=== PATIENT | male | born 1935 | race Hispanic/Latino ===

== ENCOUNTER 2017-05-04 10:38 | Inpatient (IN) | payer MEDICARE ==
--- NOTE | 2017-05-04 10:50 | C.PDOC ---
History Of Present Illness Patient BIBA for sudden onset of left sided weakness, left facial droop since approx 40 min prior to arrival. Patient apparently drove himself to supermarket , and became confused at store and EMS was called. PMhx of CAD, A fib, CHF, bladder CA, HTN, GERD. Time Seen by Provider: 05/04/17 10:42 Chief Complaint (Nursing): Weakness/Neurological Deficit History Per: Patient, EMS History/Exam Limitations: other (slurred speech) Onset/Duration Of Symptoms: Mins (approx 40 min) Current Symptoms Are (Timing): Still Present Past Medical History Reviewed: Historical Data, Nursing Documentation, Vital Signs Vital Signs: Last Vital Signs Temp 97.6 F 05/07/17 15:51 Pulse 77 05/07/17 15:51 Resp 20 05/07/17 15:51 BP 151/89 H 05/07/17 15:51 Pulse Ox 97 05/07/17 15:51 - Medical History PMH: Atrial Fibrillation, CAD, Cardia Arrhythmia, CHF, GERD, HTN, Malignancy ( Bladder) - [facility] Procedures CONTROL POSTOP PROST HEM (02/24/14) CYSTOSCOPY NEC (12/10/14) INJECT/INFUSE NEC (06/18/12) INJECT/INFUSE THROMBOLYTIC AGENT (09/27/03) NEBULIZER THERAPY (06/21/13) PARTIAL URETERECTOMY (06/10/12) RETROGRADE PYELOGRAM (02/24/14) TRANSURETH BLADD BIOPSY (02/24/14) TU BLADDER CLEARANCE (02/24/14) TU DESTRUC BLADD LES NEC (12/10/14) URETERAL CATHETERIZATION (06/10/12) Family History: States: No Known Family Hx - Social History Hx Tobacco Use: No Hx Alcohol Use: Yes Hx Substance Use: No - Immunization History Hx Tetanus Toxoid Vaccination: No Hx Influenza Vaccination: No Hx Pneumococcal Vaccination: No Review Of Systems Except As Marked, All Systems Reviewed And Found Negative. Constitutional: Negative for: Fever Cardiovascular: Negative for: Chest Pain, Palpitations Respiratory: Negative for: Shortness of Breath Gastrointestinal: Negative for: Abdominal Pain Neurological: Positive for: Weakness (left sided weakness), Confusion, Altered Mental Status. Negative for: Seizures Physical Exam - Physical Exam Appears: Non-toxic, No Acute Distress Skin: Warm, Dry Head: Atraumatic, Normacephalic Eye(s): bilateral: Normal Inspection, PERRL, EOMI Oral Mucosa: Moist Cardiovascular: Rhythm Regular Respiratory: Normal Breath Sounds, No Rales, No Rhonchi, No Wheezing Gastrointestinal/Abdominal: Normal Exam, Bowel Sounds, Soft, No Tenderness Extremity: Bilateral: Atraumatic Neurological/Psych: Oriented x3, No Normal Speech (slurred speech), Normal Cognition, No Normal Cranial Nerves (left facial droop), No Normal Motor (0/5 motor strength LUE, 1/5 mtor strength LLE, 5/5 motor strength RUE/RLE), No Normal Sensation (decreased sensation LUE/LLE), No Expressive Aphasia, No Receptive Aphasia, Dysarthria ED Course And Treatment - Laboratory Results Result Diagrams: 05/07/17 10:13 05/07/17 10:13 ECG: Interpreted By Me, Viewed By Me (atrial fibrillation 100bpm, left axis deviation, no acute ST/T wave changes - patient has known h/o a fib) ECG Interpretation: Abnormal O2 Sat by Pulse Oximetry: 99 (ra) Pulse Ox Interpretation: Normal - CT Scan/US ct head Other Rad Studies (CT/US): Read By Radiologist, Radiology Report Reviewed CT/US Interpretation: Accession No. : [id number]. Patient Name / ID : ALVERTO VIGIL / [id number]. Exam Date : 05/04/2017 11:09:03 ( Approved ) . Study Comment : Sex / Age : M / 82Y. Creator : Gabriel Yun MD. Dictator : Gabriel Yun MD. Packing House Laborer : Lap Hand Tool : Gabriel Yun MD. Approver2 : Report Date : 05/04/2017 12:30:18. My Comment : . PROCEDURE: CT HEAD WITHOUT CONTRAST. HISTORY: Code Stroke. Left-sided facial droop and left lower extremity weakness. COMPARISON: None available. TECHNIQUE: Axial computed tomography images were obtained through the head/ brain without intravenous contrast. Radiation dose: Total exam DLP = 1099.32 mGy-cm. This CT exam was performed using one or more of the following dose reduction techniques: Automated exposure control, adjustment of the mA and/or kV according to patient size, and/or use of iterative reconstruction technique. FINDINGS: HEMORRHAGE: No intracranial hemorrhage. BRAIN: There is no definite cortical edema appreciated in this examination although motion artifacts degrade the quality examination significantly, despite performing multiple series to attempt to overcome this problem. There is no mass effect. Expanded ventricular sulcal and cisternal spaces are appreciated and there is periventricular white matter lucency with subtle lucency also occasionally affecting subcortical white matter throughout the bilateral cerebral hemispheres. Both patterns are compatible with diffuse cerebral atrophy chronic microangiopathy respectively. A chronic lacune is seen at the left external capsule No suspicious extra-axial fluid collection identified in the midline brain and appears within normal limits grossly. Posterior fossa contents reflect limited chronic microangiopathy in the grace and otherwise unremarkable. VENTRICLES: Unremarkable. No hydrocephalus. CALVARIUM: Unremarkable. PARANASAL SINUSES: Limited left ethmoid sinusitis. MASTOID AIR CELLS: Unremarkable as visualized. No inflammatory changes. OTHER FINDINGS: None. IMPRESSION: Age-related neuro degenerative changes are identified without definite mass effect, cortical edema or intracranial hemorrhage at this time. A chronic lacune is seen the left external capsule. Study is somewhat limited by motion artifacts. Follow-up CT or MRI are advised given clinical history suspicious for brain infarction. Findings were discussed at CT with Dr. Contreras 05/04/2017 11:19 a.m.. Progress Note: Code stroke called on patient's arrival. Discussed patient with Dr. Pennington - he requests CTA of head in addition to CT head. Patient agitated upstairs in CT, went upstairs to eval - states has claustrophobia, also coughing , spitting up mucus, but AAOx3 with normal vitals. 2mg ativan IVP + 500ml NS bolus given. Able to get CT head done. 10:55am - As per technical rep, Dr. Bullard states cannot do CT angio at this time without blood work. 11:49AM- Discussed patient with Dr. Pennington, in agreement with tPA administration - pushed at 11: 49am. Prior to admin, patient and brother at bedside in agreement and signed consent. Patient's pharmacy [facility] called, they state patient only on Digoxin at this time. Will get CT angio head, if (+) for clot - should transer to interventional. 12:05pm- Patient now able to LLE 3/5 motor strenth, LUE still 1/5 motor strength, slurred speech clearer now, left facial droop still present. Pending CTA head for admission to ICU vs transfer to interventional neuro. 2:05PM- CTA head (-). Will admit patient to medicine. Spoke with PMD Dr. Casper, he has not seen patient in several years. Previously had hematuria due to bladder CA and was taken off of blood thinnners due to that. Will admit to medicine. 2:40PM- Discussed patient with digital advertising specialist Dr. raymond, agrees with ICU admission for acute CVA s/p tPA. - Physician Consult Information Physician Contacted: Velia Killian Outcome Of Conversation: Discussed patient with Dr. Dionne Killian, agrees with admission to his service for acute CVA, left sided hemiparesis s/p tPA. Critical Care Time - Critical Care Note Total Time (in mins): 50 Documented critical care: time excludes all time spent performing seperately billable procedures. NIHSS Stroke Scale - Date/Time Evaluation Performed Date Performed: 05/04/17 Time Performed: 10:40 When Was NIHSS Performed: Baseline - How Severe is the Stoke Level of Consciousness: 0=Alert LOC to Questions: 0=Both comments correct LOC to commands: 0=Obeys both correctly Best Gaze: 0=Normal Visual: 0=No visual loss Facial: 3=Complete unilateral paralysis Motor Arm - Left: 3=No effort against gravity (falls immediately) Motor Arm - Right: 0=No drift Motor Leg - Left: 2=Falls before 5 sec Motor Leg - Right: 0=No drift Limb Ataxia: 0=Absent Sensory: 1=Mild to moderate loss (left) Best Language: 0=No aphasia Dysarthia: 1=Mild to moderate slurring Extinction & Inattention (Neglect): 0=Normal, no object Score: 10 Severity Of Stroke: 5-15= Moderate Stroke rTPA Inclusion/Exclusion - Refusal of Treatment Patient Refused Treatment: No - Inclusion Criteria for Altepase Patient is 18 years or Older: Yes The Clinical Diagnosis of Ischemic Stroke That is Causing a Potentially Disabling Neurological Deficit: Yes Time of Onset is Well Established to be Less Than 270 Minute Before Treatment Would Begin: Yes Risk/Benefit Discussed With Patient/Family Member Present: Yes - Exclusion Criteria for Altepase Uncontrolled Hypertension at Time of Treatment (Systolic BP above 185 or Diastolic BP above 110 mmHg): No Active Internal Bleeding: No Known Bleeding Diathesis Including but Not Limited to: Platelets Below 100,000/ mm,PTT Above 40 sec After Heparin Use, Current Use of Oral Anitcoagulant With INR Greater Than 1.7 or PT Greater Than 15 secs: No Evidence of an Intracranial Hemorrhage: No Evidence of Major Acute Infarct With Signs Greater Than 1/3 MCA Territory: No Suspicion of Subarachnoid Hemorrhage on Pretreatment Evaluation Even if CT Head Negative For Hemorrhage: No - Warning to TPA With Conditions Following Conditions Weighed Against Anticipated Benefit: Yes Condition: Age Greater Than 75 years Additional Condition (For 3-4.5 Hour Window): Age Greater Than 80, Prior Stroke and Diabetes Disposition - Disposition Disposition: HOSPITALIZED Disposition Time: 14:21 Condition: GUARDED - Clinical Impression Clinical Impression: Acute CVA (cerebrovascular accident) Decision To Admit - Pt Status Changed To: Hospital Disposition Of: Inpatient - Admit Certification Admit to Inpatient:: After my assessment, the patient will require hospitalization for at least two midnights. This is because of the severity of symptoms shown, intensity of services needed, and/or the medical risk in this patient being treated as an outpatient. - InPatient: Physician Admission Certification: I certify that this patient requires 2 or more midnights of care for the following reason:: see notes - . Bed Request Type: ICU Admitting Physician: Velia Killian Patient Diagnosis: Acute CVA (cerebrovascular accident)
[2017-05-04 10:57] LABS: BASO % 0.3 % (0.0-2.0); EOS # 0.1 K/uL (0.0-0.7); EOS % 2.2 % (0.0-4.0); HEMATOCRIT 41.8 % (35.0-51.0); LYMPH # 1.2 K/uL (1.0-4.3); MEAN CELL VOLUME 81.6 fL (80.0-94.0); MEAN CORPUSCULAR HEMOGLOBIN 27.9 pg (27.0-31.0); MEAN CORPUSCULAR HGB CONC 34.2 g/dL (33.0-37.0); MEAN PLATELET VOLUME 7.8 fL (7.2-11.7); MONO # 0.7 K/uL (0.0-0.8); MONO % 11.6 % (0.0-10.0); NRBC % 0.1 % (0.0-2.0); RED CELL DISTRIBUTION WIDTH 15.7 % (11.5-14.5); WHITE BLOOD COUNT 6.2 K/uL (4.8-10.8)
[2017-05-04 11:05] LABS: INR 1.3
[2017-05-04] MEDS ORDERED: Iodixanol 320 MG/ML 100 ML BOTTLE IV ONE ×2 (11:09→13:02)
[2017-05-04 11:12] LABS: CHLORIDE 98 mmol/L (98-107); POTASSIUM 4.3 mmol/L (3.6-5.2); SODIUM 135 mmol/L (132-148)
[2017-05-04 11:14] LABS: BILIRUBIN,TOTAL 1.3 mg/dL (0.2-1.3); CARBON DIOXIDE 27 mmol/L (22-30); CHOLESTEROL 123 mg/dL (0-199); GFR AFRICAN-AMERICAN > 60
[2017-05-04 11:15] LABS: ALKALINE PHOSPHATASE 58 U/L (38-126); ALT/SGPT 18 U/L (21-72); AST/SGOT 25 U/L (17-59); BLOOD UREA NITROGEN 15 mg/dL (9-20); CALCIUM 8.9 mg/dl (8.6-10.4); GLUCOSE,RANDOM 115 mg/dL (75-110)
[2017-05-04] MEDS ORDERED: Sodium Chloride 0.9% 500 ML IV ONE ×2 (12:15→13:01)
--- NOTE | 2017-05-04 12:31 | CT ---
PROCEDURE: CT HEAD WITHOUT CONTRAST. HISTORY: Code Stroke. Left-sided facial droop and left lower extremity weakness. COMPARISON: None available. TECHNIQUE: Axial computed tomography images were obtained through the head/brain without intravenous contrast. Radiation dose: Total exam DLP = 1099.32 mGy-cm. This CT exam was performed using one or more of the following dose reduction techniques: Automated exposure control, adjustment of the mA and/or kV according to patient size, and/or use of iterative reconstruction technique. FINDINGS: HEMORRHAGE: No intracranial hemorrhage. BRAIN: There is no definite cortical edema appreciated in this examination although motion artifacts degrade the quality examination significantly, despite performing multiple series to attempt to overcome this problem. There is no mass effect. Expanded ventricular sulcal and cisternal spaces are appreciated and there is periventricular white matter lucency with subtle lucency also occasionally affecting subcortical white matter throughout the bilateral cerebral hemispheres. Both patterns are compatible with diffuse cerebral atrophy chronic microangiopathy respectively. A chronic lacune is seen at the left external capsule No suspicious extra-axial fluid collection identified in the midline brain and appears within normal limits grossly. Posterior fossa contents reflect limited chronic microangiopathy in the grace and otherwise unremarkable. VENTRICLES: Unremarkable. No hydrocephalus. CALVARIUM: Unremarkable. PARANASAL SINUSES: Limited left ethmoid sinusitis. MASTOID AIR CELLS: Unremarkable as visualized. No inflammatory changes. OTHER FINDINGS: None. IMPRESSION: Age-related neuro degenerative changes are identified without definite mass effect, cortical edema or intracranial hemorrhage at this time. A chronic lacune is seen the left external capsule. Study is somewhat limited by motion artifacts. Follow-up CT or MRI are advised given clinical history suspicious for brain infarction. Findings were discussed at CT with Dr. Contreras 05/04/2017 11:19 a.m..
--- NOTE | 2017-05-04 12:46 | RAD ---
HISTORY: STOKE COMPARISON: 05/27/2015 FINDINGS: LUNGS: No consolidation. Central pulmonary venous congestion suggested slightly increased since the prior exam PLEURA: No significant pleural effusion identified, no pneumothorax apparent. CARDIOVASCULAR: Cardiomegaly and mild central pulmonary venous congestion -the latter slightly increased. OSSEOUS STRUCTURES: No significant abnormalities. VISUALIZED UPPER ABDOMEN: Normal. OTHER FINDINGS: The previously referenced two linear objects projecting of the left lateral hemithorax are no longer seen. These likely related to the paired presybeterian parts of eyeglasses from hinge to earlobe curse segments IMPRESSION: Cardiomegaly. Mild pulmonary venous congestion - slightly increased since the prior exam. Mild CHF inferred
[2017-05-04 13:38] VITALS: BMI 36.6
--- NOTE | 2017-05-04 13:59 | CT ---
PROCEDURE: CT Angiography of the Brain. HISTORY: CVA, LEFT FACIAL FACIAL DROOP COMPARISON: None available. TECHNIQUE: CT angiography of the intracranial arteries was performed. Coronal and sagittal maximum intensity projection reformated images were generated. Contrast dose: Visipaque 320, 100 cc Radiation dose: 564.97 mGy-cm. This CT exam was performed using one or more of the following dose reduction techniques: Automated exposure control, adjustment of the mA and/or kV according to patient size, and/or use of iterative reconstruction technique. FINDINGS: INTERNAL CEREBRAL ARTERIES: The skull base, petrous, cavernous and supraclinoid segments are bilaterally widely patent. ANTERIOR CEREBRAL ARTERIES: Unremarkable. A1 and A2 segments are widely patent. Smaller distal branches unremarkable, as visualized. MIDDLE CEREBRAL ARTERIES: Unremarkable. M1 and M2 segments are widely patent. Perisylvian branches grossly symmetric. POSTERIOR CIRCULATION: Basilar Artery: Unremarkable. Distal Vertebral Arteries: Unremarkable. Posterior Cerebral Arteries: Unremarkable. Posterior Inferior Cerebellar Arteries: Unremarkable. CERVICAL CTA RESULTS: Common carotid arteries: The bilateral common carotid appear widely patent from their origins to their bifurcations with no significant stenosis appreciated although minimal atherosclerotic plaque at the bilateral carotid bulb regions symmetrically. No evidence to suggest common carotid artery dissection. Internal carotid arteries: No significant stenosis is appreciated throughout the cervical internal carotid artery segments bilaterally and there is no evidence of dissection either. Vertebral arteries: The bilateral vertebral artery normal in caliber from their origins to their union with the basilar artery. Vertebrobasilar system appears left dominant. No significant stenosis or definite pattern of dissection. Incidentally, the bilateral subclavian arteries are widely patent as well as the brachiocephalic artery. ANEURYSM/ VASCULAR MALFORMATIONS: None. OTHER FINDINGS: None. IMPRESSION: Unremarkable CT Angiography of the Brain and Neck.
--- NOTE | 2017-05-04 18:26 | CP.PCM.HP ---
<Stephanie Way - Last Filed: 05/04/17 18:13> History of Present Illness - History of Present Illness History of Present Illness: ICU HPI: Patient is a 82 year old male with past medical history of bladder cancer, A. fibrillation, CVA (2003), HTN, GERD, CHF and CAD, who presents to the ED via ambulance after he was found to be confused, slurred speech and left facial droop at the supermarket while shopping. As per EMS, patient drove himself to the supermarket. During encounter, patient seems very lethargic s/p ativan for agitation. Patient admits to a mild frontal headache and dizziness but denies chest pain, palpitations, SOB, nausea and vomiting. Unable to evaluate adequate ROS as patient was very lethargic and drowsy. PMHx: bladder cancer, A. fibrillation, CVA (2004), HTN, GERD, CHF and CAD PSHx: Back surgery ( as per patient), Partila uretertectomy, TURB ( per chart review) FHx: Unknown Allergies: NKDA Medications: refer to chart Social Hx: Lives alones, admits to 40 years of tobacco use and denies ETOH and illicit drug use Present on Admission - Present on Admission Any Indicators Present on Admission: No Review of Systems - Constitutional Constitutional: Headache, Weakness. absent: Chills, Fever - EENT Eyes: absent: Change in Vision Ears: Dizziness - Cardiovascular Cardiovascular: Lightheadedness. absent: Chest Pain, Dyspnea, Palpitations - Respiratory Respiratory: absent: Dyspnea - Gastrointestinal Gastrointestinal: absent: Abdominal Pain, Nausea, Vomiting - Musculoskeletal Musculoskeletal: Muscle Weakness - Neurological Neurological: Confusion, Dizziness, Focal Weakness, Headaches, Weakness. absent : Loss of Vision - Psychiatric Psychiatric: Confusion - Endocrine Endocrine: absent: Fatigue, Palpitations Past Patient History - Infectious Disease Hx of Infectious Diseases: None - Tetanus Immunizations Tetanus Immunization: Unknown - Past Medical History & Family History Past Medical History?: Yes - Past Social History Smoking Status: Never Smoked - CARDIAC Hx Atrial Fibrillation: Yes Hx Cardia Arrhythmia: Yes Hx Congestive Heart Failure: Yes Hx Hypertension: Yes - NEUROLOGICAL Hx Neurological Disorder: Yes HX Cerebrovascular Accident: Yes - HEENT Hx HEENT Problems: Yes Hx Cataracts: Yes (RACHEAL) - HEMATOLOGICAL/ONCOLOGICAL Hx Cancer: Yes (treated prostate/bladder) - INTEGUMENTARY Other/Comment: skin in both lower ext hyperpigmented - MUSCULOSKELETAL/RHEUMATOLOGICAL Hx Musculoskeletal Disorders: Yes Hx Unsteady Gait: Yes (cane) Other/Comment: hx of "frozen shoulder" - GASTROINTESTINAL Hx Gastrointestinal Disorders: Yes Hx Gastroesophageal Reflux: Yes - GENITOURINARY/GYNECOLOGICAL Hx Genitourinary Disorders: Yes (bladder tumor removed 2010) Hx Prostate Problems: Yes - PSYCHIATRIC Hx Substance Use: No - SURGICAL HISTORY Hx Surgeries: Yes Other/Comment: pilonidal cyst removed - ANESTHESIA Hx Anesthesia: Yes Hx Anesthesia Reactions: No Meds Allergies/Adverse Reactions: Allergies Allergy/AdvReac Type Severity Reaction Status Date / Time No Known Allergies Allergy Verified 05/04/17 10:40 Physical Exam - Head Exam Head Exam: NORMOCEPHALIC - Eye Exam Eye Exam: EOMI - Respiratory Exam Respiratory Exam: NORMAL BREATHING PATTERN - Cardiovascular Exam Cardiovascular Exam: REGULAR RHYTHM, +S1, +S2 - GI/Abdominal Exam GI & Abdominal Exam: Normal Bowel Sounds, Soft. absent: Tenderness - Extremities Exam Extremities exam: Positive for: normal inspection. Negative for: pedal edema - Neurological Exam Neurological exam: Alert, Altered Additional comments: Unable to appreciate adequate neurological exam as patient is very lethargic and drowsy. Observation of slurred speech, confusion Patient was examined s/p TPA: noted to have 3/5 strenght on the left LE and 4/5 UE. LLE weaker than RLE - Skin Skin Exam: Normal Color Results - Vital Signs Recent Vital Signs: Last Vital Signs Temp 97.4 F L 05/04/17 17:25 Pulse 91 H 05/04/17 17:45 Resp 20 05/04/17 17:25 BP 154/95 H 05/04/17 17:45 Pulse Ox 97 05/04/17 17:45 - Labs Result Diagrams: 05/04/17 10:51 05/04/17 10:51 Labs: Laboratory Results - last 24 hr 05/04/17 05/04/17 05/04/17 10:51 10:51 10:51 WBC 6.2 RBC 5.12 Hgb 14.3 Hct 41.8 MCV 81.6 MCH 27.9 MCHC 34.2 RDW 15.7 H Plt Count 177 MPV 7.8 Neut % (Auto) 66.9 Lymph % (Auto) 19.0 L [place] % (Auto) 11.6 H Eos % (Auto) 2.2 Baso % (Auto) 0.3 Neut # 4.2 Lymph # 1.2 [place] # 0.7 Eos # 0.1 Baso # 0.0 PT 14.7 H INR 1.3 APTT 32 Sodium 135 Potassium 4.3 Chloride 98 Carbon Dioxide 27 Anion Gap 14 BUN 15 Creatinine 1.0 Est GFR ( Amer) > 60 Est GFR (Non-Af Amer) > 60 Random Glucose 115 H Hemoglobin A1c Calcium 8.9 Total Bilirubin 1.3 AST 25 ALT 18 L Alkaline Phosphatase 58 Troponin I < 0.0120 Total Protein 8.0 Albumin 4.0 Globulin 3.9 Albumin/Globulin Ratio 1.0 Triglycerides 99 Cholesterol 123 LDL Cholesterol Direct 64 HDL Cholesterol 49 Blood Type Antibody Screen 05/04/17 05/04/17 10:51 10:51 WBC RBC Hgb Hct MCV MCH MCHC RDW Plt Count MPV Neut % (Auto) Lymph % (Auto) [place] % (Auto) Eos % (Auto) Baso % (Auto) Neut # Lymph # [place] # Eos # Baso # PT INR APTT Sodium Potassium Chloride Carbon Dioxide Anion Gap BUN Creatinine Est GFR ( Amer) Est GFR (Non-Af Amer) Random Glucose Hemoglobin A1c 5.5 Calcium Total Bilirubin AST ALT Alkaline Phosphatase Troponin I Total Protein Albumin Globulin Albumin/Globulin Ratio Triglycerides Cholesterol LDL Cholesterol Direct HDL Cholesterol Blood Type A NEGATIVE Antibody Screen Negative Assessment & Plan - Assessment and Plan (Free Text) Assessment: Patient is a 82 year old male with past medical history of bladder cancer, A. fibrillation, CVA (2003), HTN, GERD, CHF and CAD, who presents to the ED via ambulance after he was found to be confused, slurred speech and left facial droop at the supermarket while shopping. Patient was given TPA at 11:45am and noted to have improved left-sided strength. Plan: Neuro: Alert, mildly lethargic, slurred speech, Hx of CVA (2003) Neurologist Consult, Dr. Pennington---> help appreciated * F/U recommendation Imaging: Head CT (05/04/17): No intracranial hemorrhage. 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 Head/Neck CTA (05/04/17): Unremarkable CT angiography of the brain and neck F/U : * BRAIN MRI without contrast * Echocardiogram and carotid doppler * EEG Labs: * lipid panel:T, Cholesterol:123, LDL: 64, HDL: 49 * hemoglobin A1c 5.5, * TSH Medication/Management: * Crestor 10mg PO HS * NS @ 75mls/hr Cardio: Hx of HTN and A. fibrillation, CHF Punching Machine Operator Consult, Dr. Samson---> Help appreciated * f/U Echocardiogram * Labs: BNP: 2100 and cardiac enzymes Medication/Management: Home medication: Toprol XL 50mg PO BID Digoxin 0.25mg PO daily Lasix 40mg PO tab Pulm: No acute issues Endo: No acute issues ID: No acute issues Prophylaxis: DVT: SCDs, no anticoagulation at the moment until repeat head CT r/o intracranial hemorrhage GI: Protonix 40mg IV daily <Elias Ortiz P - Last Filed: 05/11/17 08:00> Results - Vital Signs Recent Vital Signs: Last Vital Signs Temp 97.6 F 05/07/17 15:51 Pulse 77 05/07/17 15:51 Resp 20 05/07/17 15:51 BP 151/89 H 05/07/17 15:51 Pulse Ox 99 05/09/17 13:24 - Labs Result Diagrams: 05/07/17 10:13 05/07/17 10:13 Attending/Attestation - Attestation I have personally seen and examined this patient.: Yes I have fully participated in the care of the patient.: Yes I have reviewed all pertinent clinical information: Yes Notes (Text): Seen and evaluated with resident agree with assessment and plan, see note on the same day.
[2017-05-04] MEDS ORDERED: Dextrose 5%/0.45% NS 1,000 ML IV SCH (18:45)
--- NOTE | 2017-05-04 18:46 | CP.PCM.CON ---
History of Present Illness - History of Present Illness History of Present Illness: CONSULT DICTATED LEFT HEMIPARESIS POST tPA EXAM LEFT HEMIPARESIS WITH HOMONYMOUS HEMIANOPIA WORK UP PER ORDER Past Patient History - Infectious Disease Hx of Infectious Diseases: None - Tetanus Immunizations Tetanus Immunization: Unknown - Past Medical History & Family History Past Medical History?: Yes - Past Social History Smoking Status: Never Smoked - CARDIAC Hx Atrial Fibrillation: Yes Hx Cardia Arrhythmia: Yes Hx Congestive Heart Failure: Yes Hx Hypertension: Yes - NEUROLOGICAL Hx Neurological Disorder: Yes HX Cerebrovascular Accident: Yes - HEENT Hx HEENT Problems: Yes Hx Cataracts: Yes (RACHEAL) - HEMATOLOGICAL/ONCOLOGICAL Hx Cancer: Yes (treated prostate/bladder) - INTEGUMENTARY Other/Comment: skin in both lower ext hyperpigmented - MUSCULOSKELETAL/RHEUMATOLOGICAL Hx Musculoskeletal Disorders: Yes Hx Unsteady Gait: Yes (cane) Other/Comment: hx of "frozen shoulder" - GASTROINTESTINAL Hx Gastrointestinal Disorders: Yes Hx Gastroesophageal Reflux: Yes - GENITOURINARY/GYNECOLOGICAL Hx Genitourinary Disorders: Yes (bladder tumor removed 2010) Hx Prostate Problems: Yes - PSYCHIATRIC Hx Substance Use: No - SURGICAL HISTORY Hx Surgeries: Yes Other/Comment: pilonidal cyst removed - ANESTHESIA Hx Anesthesia: Yes Hx Anesthesia Reactions: No Meds Allergies/Adverse Reactions: Allergies Allergy/AdvReac Type Severity Reaction Status Date / Time No Known Allergies Allergy Verified 05/04/17 10:40 - Medications Medications: Current Medications Dextrose/Sodium Chloride (Dextrose 5%/0.45% Ns 1000 Ml) 1,000 mls @ 50 mls/hr IV .Q20H DESIREE Rosuvastatin Calcium (Crestor) 10 mg PO HS DESIREE Results - Vital Signs Recent Vital Signs: Last Vital Signs Temp 97.4 F L 05/04/17 17:25 Pulse 91 H 05/04/17 17:45 Resp 20 05/04/17 17:25 BP 154/95 H 05/04/17 17:45 Pulse Ox 97 05/04/17 17:45 - Labs Result Diagrams: 05/04/17 10:51 05/04/17 10:51 Labs: Laboratory Results - last 24 hr 05/04/17 05/04/17 05/04/17 10:51 10:51 10:51 WBC 6.2 RBC 5.12 Hgb 14.3 Hct 41.8 MCV 81.6 MCH 27.9 MCHC 34.2 RDW 15.7 H Plt Count 177 MPV 7.8 Neut % (Auto) 66.9 Lymph % (Auto) 19.0 L [place] % (Auto) 11.6 H Eos % (Auto) 2.2 Baso % (Auto) 0.3 Neut # 4.2 Lymph # 1.2 [place] # 0.7 Eos # 0.1 Baso # 0.0 PT 14.7 H INR 1.3 APTT 32 Sodium 135 Potassium 4.3 Chloride 98 Carbon Dioxide 27 Anion Gap 14 BUN 15 Creatinine 1.0 Est GFR ( Amer) > 60 Est GFR (Non-Af Amer) > 60 Random Glucose 115 H Hemoglobin A1c Calcium 8.9 Total Bilirubin 1.3 AST 25 ALT 18 L Alkaline Phosphatase 58 Troponin I < 0.0120 Total Protein 8.0 Albumin 4.0 Globulin 3.9 Albumin/Globulin Ratio 1.0 Triglycerides 99 Cholesterol 123 LDL Cholesterol Direct 64 HDL Cholesterol 49 Blood Type Antibody Screen 05/04/17 05/04/17 10:51 10:51 WBC RBC Hgb Hct MCV MCH MCHC RDW Plt Count MPV Neut % (Auto) Lymph % (Auto) [place] % (Auto) Eos % (Auto) Baso % (Auto) Neut # Lymph # [place] # Eos # Baso # PT INR APTT Sodium Potassium Chloride Carbon Dioxide Anion Gap BUN Creatinine Est GFR ( Amer) Est GFR (Non-Af Amer) Random Glucose Hemoglobin A1c 5.5 Calcium Total Bilirubin AST ALT Alkaline Phosphatase Troponin I Total Protein Albumin Globulin Albumin/Globulin Ratio Triglycerides Cholesterol LDL Cholesterol Direct HDL Cholesterol Blood Type A NEGATIVE Antibody Screen Negative
--- NOTE | 2017-05-04 19:00 | CP.PCM.PN ---
Subjective - Date & Time of Evaluation Date of Evaluation: 05/04/17 Time of Evaluation: 14:00 - Subjective Subjective: Patient presented with left sided 1/5 weakness in ER, new onset, TPA given in ER without significant improvement, but patient was lethargic at the time of our exam post receiving the ativan in all 4 mg iv. CTA done post tpa was negative for bleeding. Afib noticed on the monitor, patient has history of same in past had stroke and was on anticoagulation not currently stopped in past due to bleeding form bladder cancer. Patient had slurred speech, swallowing could not be checked due to lethargy, patient was maintaining airway and vs preserved. Will prevent hypotension. Plan Observe in ICU Neurochecks q1h Repeat CT Echo, carotid doppler Speech and swallow eval, PT/OT eval Anticoagulation after 24 hrs after getting all info regarding bleeding risk GI and dvt prophylaxis scds for now. Objective - Vital Signs/Intake and Output Vital Signs (last 24 hours): Temp Pulse Resp BP Pulse Ox 97.4 F L 93 H 16 154/95 H 99 05/04/17 17:25 05/04/17 18:21 05/04/17 18:21 05/04/17 17:45 05/04/17 18:21 - Medications Medications: Current Medications Sodium Chloride (Sodium Chloride 0.9%) 1,000 mls @ 75 mls/hr IV .[id number] DESIREE Rosuvastatin Calcium (Crestor) 10 mg PO HS DESIREE - Labs Labs: 05/04/17 10:51 05/04/17 10:51 PT 14.7 SECONDS (9.7-12.2) H 05/04/17 10:51 INR 1.3 05/04/17 10:51 APTT 32 SECONDS (21-34) 05/04/17 10:51
[2017-05-04] MEDS: Sodium Chloride 0.9% 1,000 ML IV SCH (19:54)
--- NOTE | 2017-05-04 20:14 | CP.PCM.CON ---
Past Patient History - Infectious Disease Hx of Infectious Diseases: None - Tetanus Immunizations Tetanus Immunization: Unknown - Past Medical History & Family History Past Medical History?: Yes - Past Social History Smoking Status: Never Smoked - CARDIAC Hx Atrial Fibrillation: Yes Hx Cardia Arrhythmia: Yes Hx Congestive Heart Failure: Yes Hx Hypertension: Yes - NEUROLOGICAL Hx Neurological Disorder: Yes HX Cerebrovascular Accident: Yes - HEENT Hx HEENT Problems: Yes Hx Cataracts: Yes (RACHEAL) - HEMATOLOGICAL/ONCOLOGICAL Hx Cancer: Yes (treated prostate/bladder) - INTEGUMENTARY Other/Comment: skin in both lower ext hyperpigmented - MUSCULOSKELETAL/RHEUMATOLOGICAL Hx Musculoskeletal Disorders: Yes Hx Unsteady Gait: Yes (cane) Other/Comment: hx of "frozen shoulder" - GASTROINTESTINAL Hx Gastrointestinal Disorders: Yes Hx Gastroesophageal Reflux: Yes - GENITOURINARY/GYNECOLOGICAL Hx Genitourinary Disorders: Yes (bladder tumor removed 2010) Hx Prostate Problems: Yes - PSYCHIATRIC Hx Substance Use: No - SURGICAL HISTORY Hx Surgeries: Yes Other/Comment: pilonidal cyst removed - ANESTHESIA Hx Anesthesia: Yes Hx Anesthesia Reactions: No Meds Allergies/Adverse Reactions: Allergies Allergy/AdvReac Type Severity Reaction Status Date / Time No Known Allergies Allergy Verified 05/04/17 10:40 - Medications Medications: Current Medications Sodium Chloride (Sodium Chloride 0.9%) 1,000 mls @ 75 mls/hr IV .[id number] DESIREE Last Admin: 05/04/17 19:54 Dose: 75 mls/hr Pantoprazole Sodium (Protonix Inj) 40 mg IVP DAILY [facility] Rosuvastatin Calcium (Crestor) 10 mg PO HS DESIREE Physical Exam - Constitutional Appears: Well - Head Exam Head Exam: ATRAUMATIC, NORMAL INSPECTION, NORMOCEPHALIC - Eye Exam Eye Exam: EOMI, Normal appearance, PERRL Pupil Exam: NORMAL ACCOMODATION, PERRL - ENT Exam ENT Exam: Mucous Membranes Moist, Normal Exam - Neck Exam Neck exam: Positive for: Normal Inspection - Respiratory Exam Respiratory Exam: Decreased Breath Sounds - Cardiovascular Exam Cardiovascular Exam: REGULAR RHYTHM, +S1, +S2 - GI/Abdominal Exam GI & Abdominal Exam: Diminished Bowel Sounds, Soft - Rectal Exam Rectal Exam: Deferred Results - Vital Signs Recent Vital Signs: Last Vital Signs Temp 97.4 F L 05/04/17 17:25 Pulse 103 H 05/04/17 19:23 Resp 16 05/04/17 18:21 BP 147/97 H 05/04/17 19:23 Pulse Ox 99 05/04/17 19:23 - Labs Result Diagrams: 05/04/17 10:51 05/04/17 10:51 Labs: Laboratory Results - last 24 hr 05/04/17 05/04/17 05/04/17 10:51 10:51 10:51 WBC 6.2 RBC 5.12 Hgb 14.3 Hct 41.8 MCV 81.6 MCH 27.9 MCHC 34.2 RDW 15.7 H Plt Count 177 MPV 7.8 Neut % (Auto) 66.9 Lymph % (Auto) 19.0 L [place] % (Auto) 11.6 H Eos % (Auto) 2.2 Baso % (Auto) 0.3 Neut # 4.2 Lymph # 1.2 [place] # 0.7 Eos # 0.1 Baso # 0.0 PT 14.7 H INR 1.3 APTT 32 Sodium 135 Potassium 4.3 Chloride 98 Carbon Dioxide 27 Anion Gap 14 BUN 15 Creatinine 1.0 Est GFR ( Amer) > 60 Est GFR (Non-Af Amer) > 60 Random Glucose 115 H Hemoglobin A1c Calcium 8.9 Total Bilirubin 1.3 AST 25 ALT 18 L Alkaline Phosphatase 58 Troponin I < 0.0120 Total Protein 8.0 Albumin 4.0 Globulin 3.9 Albumin/Globulin Ratio 1.0 Triglycerides 99 Cholesterol 123 LDL Cholesterol Direct 64 HDL Cholesterol 49 Blood Type Antibody Screen 05/04/17 05/04/17 10:51 10:51 WBC RBC Hgb Hct MCV MCH MCHC RDW Plt Count MPV Neut % (Auto) Lymph % (Auto) [place] % (Auto) Eos % (Auto) Baso % (Auto) Neut # Lymph # [place] # Eos # Baso # PT INR APTT Sodium Potassium Chloride Carbon Dioxide Anion Gap BUN Creatinine Est GFR ( Amer) Est GFR (Non-Af Amer) Random Glucose Hemoglobin A1c 5.5 Calcium Total Bilirubin AST ALT Alkaline Phosphatase Troponin I Total Protein Albumin Globulin Albumin/Globulin Ratio Triglycerides Cholesterol LDL Cholesterol Direct HDL Cholesterol Blood Type A NEGATIVE Antibody Screen Negative
[2017-05-04] MEDS ORDERED: Labetalol 5 mg/ml Inj 20ML IV ONE (20:30)
--- NOTE | 2017-05-04 22:48 | CP.PCM.CON ---
History of Present Illness - History of Present Illness History of Present Illness: HPI: Patient is a 82 year old male with past medical history of bladder cancer, A. fibrillation, CVA (2004), HTN, GERD, CHF and CAD, who presents to the ED via ambulance after he was found to be confused, slurred speech and left facial droop at the supermarket while shopping. As per EMS, patient drove himself to the supermarket. During encounter, patient seems very lethargic s/p ativan for agitation. Patient admits to a mild frontal headache and dizziness but denies chest pain, palpitations, SOB, nausea and vomiting. Unable to evaluate adequate ROS as patient was very lethargic and drowsy. PMHx: bladder cancer, A. fibrillation, CVA (2004), HTN, GERD, CHF and CAD PSHx: Back surgery ( as per patient), Partila uretertectomy, TURB ( per chart review) FHx: Unknown Allergies: NKDA Medications: refer to chart Social Hx: Lives alones, admits to 40 years of tobacco use and denies ETOH and illicit drug use Present on Admission - Present on Admission Any Indicators Present on Admission: No Review of Systems - Constitutional Constitutional: Headache, Weakness. absent: Chills, Fever - EENT Eyes: absent: Change in Vision Ears: Dizziness - Cardiovascular Cardiovascular: Lightheadedness. absent: Chest Pain, Dyspnea, Palpitations - Respiratory Respiratory: absent: Dyspnea - Gastrointestinal Gastrointestinal: absent: Abdominal Pain, Nausea, Vomiting - Musculoskeletal Musculoskeletal: Muscle Weakness - Neurological Neurological: Confusion, Dizziness, Focal Weakness, Headaches, Weakness. absent : Loss of Vision - Psychiatric Psychiatric: Confusion - Endocrine Endocrine: absent: Fatigue, Palpitations Physical Exam - Head Exam Head Exam: NORMOCEPHALIC - Eye Exam Eye Exam: EOMI - Respiratory Exam Respiratory Exam: NORMAL BREATHING PATTERN - Cardiovascular Exam Cardiovascular Exam: REGULAR RHYTHM, +S1, +S2 - GI/Abdominal Exam GI & Abdominal Exam: Normal Bowel Sounds, Soft. absent: Tenderness - Extremities Exam Extremities exam: Positive for: normal inspection. Negative for: pedal edema - Neurological Exam Neurological exam: Alert, Altered Additional comments: Unable to appreciate adequate neurological exam as patient is very lethargic and drowsy. Observation of slurred speech, confusion Patient was examined s/p TPA: noted to have 3/5 strenght on the left LE and 4/5 UE. LLE weaker than RLE - Skin Skin Exam: Normal Color Past Patient History - Infectious Disease Hx of Infectious Diseases: None - Tetanus Immunizations Tetanus Immunization: Unknown - Past Medical History & Family History Past Medical History?: Yes - Past Social History Smoking Status: Never Smoked - CARDIAC Hx Atrial Fibrillation: Yes Hx Cardia Arrhythmia: Yes Hx Congestive Heart Failure: Yes Hx Hypertension: Yes - NEUROLOGICAL Hx Neurological Disorder: Yes HX Cerebrovascular Accident: Yes - HEENT Hx HEENT Problems: Yes Hx Cataracts: Yes (RACHEAL) - HEMATOLOGICAL/ONCOLOGICAL Hx Cancer: Yes (treated prostate/bladder) - INTEGUMENTARY Other/Comment: skin in both lower ext hyperpigmented - MUSCULOSKELETAL/RHEUMATOLOGICAL Hx Musculoskeletal Disorders: Yes Hx Unsteady Gait: Yes (cane) Other/Comment: hx of "frozen shoulder" - GASTROINTESTINAL Hx Gastrointestinal Disorders: Yes Hx Gastroesophageal Reflux: Yes - GENITOURINARY/GYNECOLOGICAL Hx Genitourinary Disorders: Yes (bladder tumor removed 2010) Hx Prostate Problems: Yes - PSYCHIATRIC Hx Substance Use: No - SURGICAL HISTORY Hx Surgeries: Yes Other/Comment: pilonidal cyst removed - ANESTHESIA Hx Anesthesia: Yes Hx Anesthesia Reactions: No Meds Allergies/Adverse Reactions: Allergies Allergy/AdvReac Type Severity Reaction Status Date / Time No Known Allergies Allergy Verified 05/04/17 10:40 - Medications Medications: Current Medications Sodium Chloride (Sodium Chloride 0.9%) 1,000 mls @ 75 mls/hr IV .[id number] PENDING [facility] TO [facility] Last Admin: 05/04/17 19:54 Dose: 75 mls/hr Pantoprazole Sodium (Protonix Inj) 40 mg IVP DAILY [facility] Rosuvastatin Calcium (Crestor) 10 mg PO HS [facility] Last Admin: 05/04/17 21:36 Dose: Not Given Results - Vital Signs Recent Vital Signs: Last Vital Signs Temp 98 F 05/04/17 20:00 Pulse 103 H 05/04/17 19:23 Resp 16 05/04/17 18:21 BP 160/82 H 05/04/17 21:35 Pulse Ox 99 05/04/17 19:23 - Labs Result Diagrams: 05/05/17 06:15 05/05/17 06:19 Labs: Laboratory Results - last 24 hr 05/04/17 05/04/17 05/04/17 10:51 10:51 10:51 WBC 6.2 RBC 5.12 Hgb 14.3 Hct 41.8 MCV 81.6 MCH 27.9 MCHC 34.2 RDW 15.7 H Plt Count 177 MPV 7.8 Neut % (Auto) 66.9 Lymph % (Auto) 19.0 L [place] % (Auto) 11.6 H Eos % (Auto) 2.2 Baso % (Auto) 0.3 Neut # 4.2 Lymph # 1.2 [place] # 0.7 Eos # 0.1 Baso # 0.0 PT 14.7 H INR 1.3 APTT 32 Sodium 135 Potassium 4.3 Chloride 98 Carbon Dioxide 27 Anion Gap 14 BUN 15 Creatinine 1.0 Est GFR ( Amer) > 60 Est GFR (Non-Af Amer) > 60 Random Glucose 115 H Hemoglobin A1c Calcium 8.9 Total Bilirubin 1.3 AST 25 ALT 18 L Alkaline Phosphatase 58 Troponin I < 0.0120 Total Protein 8.0 Albumin 4.0 Globulin 3.9 Albumin/Globulin Ratio 1.0 Triglycerides 99 Cholesterol 123 LDL Cholesterol Direct 64 HDL Cholesterol 49 TSH 3rd Generation Blood Type Antibody Screen 05/04/17 05/04/17 05/04/17 10:51 10:51 19:51 WBC RBC Hgb Hct MCV MCH MCHC RDW Plt Count MPV Neut % (Auto) Lymph % (Auto) [place] % (Auto) Eos % (Auto) Baso % (Auto) Neut # Lymph # [place] # Eos # Baso # PT INR APTT Sodium Potassium Chloride Carbon Dioxide Anion Gap BUN Creatinine Est GFR ( Amer) Est GFR (Non-Af Amer) Random Glucose Hemoglobin A1c 5.5 Calcium Total Bilirubin AST ALT Alkaline Phosphatase Troponin I Total Protein Albumin Globulin Albumin/Globulin Ratio Triglycerides Cholesterol LDL Cholesterol Direct HDL Cholesterol TSH 3rd Generation 2.70 Blood Type A NEGATIVE Antibody Screen Negative Assessment & Plan - Assessment and Plan (Free Text) Assessment: Patient is a 82 year old male with past medical history of bladder cancer, A. fibrillation, CVA (2003), HTN, GERD, CHF and CAD, who presents to the ED via ambulance after he was found to be confused, slurred speech and left facial droop at the supermarket while shopping. Patient was given TPA at 11:45am and noted to have improved left-sided strength. Plan: Neuro: Alert, mildly lethargic, slurred speech, Hx of CVA (2003) Neurologist Consult, Dr. Pennington---> help appreciated * F/U recommendation Imaging: Head CT (05/04/17): No intracranial hemorrhage. 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 Head/Neck CTA (05/04/17): Unremarkable CT angiography of the brain and neck F/U : * BRAIN MRI without contrast * Echocardiogram and carotid doppler * EEG Labs: * lipid panel:T, Cholesterol:123, LDL: 64, HDL: 49 * hemoglobin A1c 5.5, * TSH Medication/Management: * Crestor 10mg PO HS * NS @ 75mls/hr Cardio: Hx of HTN and A. fibrillation, CHF Gis Engineer Consult, Dr. Samson---> Help appreciated * f/U Echocardiogram * Labs: BNP: 2100 and cardiac enzymes Medication/Management: Home medication: Toprol XL 50mg PO BID Digoxin 0.25mg PO daily Lasix 40mg PO tab Pulm: No acute issues Endo: No acute issues ID: No acute issues Prophylaxis: DVT: SCDs, no anticoagulation at the moment until repeat head CT r/o intracranial hemorrhage GI: Protonix 40mg IV daily
--- NOTE | 2017-05-05 02:33 | CON ---
ATTENDING PHYSICIAN: Marco Antonio Killian MD REASON FOR CONSULTATION: Acute stroke. CHIEF COMPLAINT: The patient was brought in by EMS within the window period of tPA, presenting a bit left-sided hemiparesis in the shop. The patient was brought in by EMS. HISTORY OF PRESENT ILLNESS: The patient was brought in within the window period approximately 40 minutes from the time [place] He developed confusion and left-sided weakness. Immediately, EMS was called in and he was brought in to myself in the emergency room. The patient did have significant cardiac history of atrial fibrillation, coronary artery disease, CHF, bladder cancer, hypertension, and gastroesophageal reflux disease. In the emergency room, he did have a CAT scan. The CAT scan did not show any acute pathology. The patient's blood pressure was stable and the patient was given as per recommendation by me via tPA. Following that, the patient did have CT angiogram which also did not reveal any thrombus. During the process of this treatment, the patient slowly regained his strength, not completely, however. Speech also improved. The patient did have some rectal blood tinge as well as hematuria following tPA was documented. PERSONAL MEDICAL HISTORY: Not available. FAMILY HISTORY: Not available. REVIEW OF SYSTEMS: As per the documentation reviewed from Neuro, the patient did have acute ischemic process, The NIHSS score initially was 10. MEDICATIONS: At home, he is taking digoxin. Here, the patient was given tPA recombinant. Ativan was given for the sedation. PHYSICAL EXAMINATION: VITAL SIGNS: Blood pressure 154/95 with a mean arterial pressure of 114, respiratory rate 16, temperature 97.4 with a pulse rate of 91, irregularly irregular. NECK: Supple. HEART: Sounds irregular. EXTREMITIES: Poor hygienic pattern with a 2+ pitting edema and poor hygienic nails. NEUROLOGIC: The patient is arousable. He knows he is in the hospital. He tried to tell me how and what things happened. Significant dysarthria noted. However, he is communicable. He follows one-to-two step command. Mild right and left confusion. Speech is dysarthric, naming, repetition. Fluency is also affected. Cranial Nerve Examination: Visual field respond to visual threat on the right side. He is able to count the finger on his left side. Extraocular movement decreased in all directions. No facial sensory deficit. Mild facial asymmetry manifesting as flattening of the left nasolabial fold. Hearing seems to be intact. Mouth is moist. Motor Examination: He could lift both upper extremities against the gravity, however, significant weakness noted, 4+/5 on his left side. Deep tendon reflexes are absent. Plantars are upgoing on his left side, right side was down going. Sensory Examination: Intact with the pain. WORKUP: CT of the head reviewed by me, no acute pathology. CT angiogram, no acute thrombus is noted. EKG, atrial fibrillation. BLOOD WORKUP: WBC 6.2, hemoglobin 14.3, hematocrit 41.8, platelets 177. PT 14.7, INR 1.3, PTT 32. Sodium 135, potassium 4.3, chloride 98, bicarbonate 27, BUN 15, creatinine 1.0. GFR more than 60. Glucose 115, ALT 18. Cholesterol 123, LDL 64, HDL 69, triglycerides 99. CONCLUSION: The patient is presenting with abrupt onset of left-sided weakness with speech impairment consistent with right MCA territory ischemic process considering his atrial fibrillation which is probably secondary to his cardioembolic phenomenon. The patient fits into the category for tPA infusion. The patient was given as per the recommendation and the protocol. Initial CT was negative and CT angiogram was also negative. The patient did have some blood-tinged hematuria and rectal bleed was noted following tPA. The current examination shows left hemiparesis with left homonymous hemianopsia. RECOMMENDATIONS: 1. Continue hydration, types of catheterization. Keep the head in elevation. 2. The patient should have a repeat CT of the head if any change in neurostatus, otherwise in the morning. 3. EEG/carotid Doppler/echocardiogram and MRI is also requested. 4. Sequential stockings in both lower extremities recommended for DVT prophylaxis for now. 5. The patient should be followed by speech and swallow evaluation and oral feeding should be initiated as per the recommendation. 6. Continue neuro check clearly until tomorrow. 7. The patient's condition has been discussed with the resident. The patient will be followed closely with you. Young Pennington MD [place]
[2017-05-05 06:34] LABS: BASO % 0.3 % (0.0-2.0); EOS # 0.1 K/uL (0.0-0.7); EOS % 2.2 % (0.0-4.0); HEMATOCRIT 38.3 % (35.0-51.0); LYMPH # 0.5 K/uL (1.0-4.3); LYMPH % 9.4 % (20.0-40.0); MEAN CELL VOLUME 81.2 fL (80.0-94.0); MEAN CORPUSCULAR HGB CONC 34.4 g/dL (33.0-37.0); MEAN PLATELET VOLUME 8.3 fL (7.2-11.7); MONO # 0.7 K/uL (0.0-0.8); MONO % 11.5 % (0.0-10.0); NRBC % 0.3 % (0.0-2.0); PLATELET COUNT 162 K/uL (130-400); WHITE BLOOD COUNT 5.7 K/uL (4.8-10.8)
[2017-05-05 06:37] LABS: CHLORIDE 103 mmol/L (98-107)
[2017-05-05 06:38] LABS: POTASSIUM 4.3 mmol/L (3.6-5.2); SODIUM 135 mmol/L (132-148)
[2017-05-05 06:40] LABS: ALB/GLOB RATIO 0.7 (1.0-2.1); ALKALINE PHOSPHATASE 47 U/L (38-126); ALT/SGPT 21 U/L (21-72); AST/SGOT 31 U/L (17-59); BILIRUBIN,TOTAL 1.6 mg/dL (0.2-1.3); BLOOD UREA NITROGEN 12 mg/dL (9-20); CARBON DIOXIDE 25 mmol/L (22-30); GFR AFRICAN-AMERICAN > 60; GLUCOSE,RANDOM 71 mg/dL (75-110); TOTAL PROTEIN 7.4 g/dL (6.3-8.3)
[2017-05-05 06:41] LABS: CALCIUM 8.4 mg/dl (8.6-10.4); MAGNESIUM 1.6 mg/dL (1.6-2.3); PHOSPHOROUS 2.7 mg/dL (2.5-4.5)
[2017-05-05 08:57] LABS: EOSINOPHIL 3 % (0-4); NEUTROPHIL 77 % (50-75); TOTAL CELLS COUNTED 100
[2017-05-05] MEDS: Sodium Chloride 0.9% 1,000 ML IV SCH ×3 (09:06→21:25)
--- NOTE | 2017-05-05 09:31 | PN ---
DATE: 05/05/2017 TIME OF EVALUATION: 6:35 a.m. NEUROLOGICAL PROBLEM: Acute stroke status post TPA. PHYSICAL EXAMINATION: The patient is arousable verbally on calling his name. He could follow 1 to 2 step commands, still right and left confusion. The left homonymous hemianopsia, which was found yesterday's exam, today it has completely resolved. Extraocular movements normal. Pupils reactive to light. Facial asymmetry also regaining back to normal. He has weakness of his left side is 4+/5. Hyperreflexic on the left side with plantars are upgoing on both sides, which is unchanged to compare with yesterday's exam. VITAL SIGNS: Blood pressure 142/73, mean arterial pressure of 96, respiratory rate of 18, temperature afebrile with pulse rate 75. The patient should have followup CT of the head today and MRI of the brain. The other workup which was requested earlier including carotid Doppler, echocardiogram, EEG, and Cardiology consult are still pending. The patient will be follow up closely with you. Young Pennington MD
--- NOTE | 2017-05-05 12:31 | CP.CCUPN ---
<Stephanie Way E - Last Filed: 05/05/17 12:04> CCU Subjective - Physician Review Subjective (Free Text): Patient was seen and examined at bedside. Patient was very alert and he is aware of his current clinical status. Patient states that he is feeling much better with more clearer speech. Patient denies headache, vision changes, nausea , vomiting numbness/tingling, chest pain, palpitations, SOB and dizziness. CCU Objective - Vital Signs / Intake & Output Vital Signs (Last 4 hours): Vital Signs Pulse Resp BP Pulse Ox 05/05/17 11:20 86 16 98 05/05/17 11:19 85 18 132/68 94 L 05/05/17 11:10 73 19 96 05/05/17 11:00 83 20 97 05/05/17 10:50 81 18 97 05/05/17 10:40 99 H 22 97 05/05/17 10:30 106 H 98 05/05/17 10:20 90 12 96 05/05/17 10:19 98 H 14 128/92 H 95 05/05/17 10:10 88 11 L 98 05/05/17 10:00 85 19 96 05/05/17 09:50 97 H 17 92 L 05/05/17 09:40 84 13 99 05/05/17 09:30 89 13 05/05/17 09:21 93 H 10 L 142/95 H 05/05/17 09:20 83 9 L 05/05/17 09:10 77 20 05/05/17 09:00 79 20 05/05/17 08:50 85 17 05/05/17 08:40 96 H 16 05/05/17 08:30 97 H 16 05/05/17 08:20 78 18 05/05/17 08:19 81 15 138/69 05/05/17 08:10 81 19 Intake and Output (Last 8hrs): Intake & Output 05/04/17 05/05/17 05/05/17 22:59 06:59 14:59 Intake Total 225 600 75 Output Total 450 300 0 Balance -225 300 75 Weight 220 lb Intake: Intake, IV Amount 225 600 75 RIGHT WRIST 225 600 75 Oral 0 Output: Urine 450 300 0 Condom 450 300 0 Other: Voiding Method Incontinent # Voids Condom 1 - Physical Exam Head: Positive for: Atraumatic Extroacular Muscles: Positive for: EOMI Mouth: Positive for: Moist Mucous Membranes Respiratory/Chest: Positive for: Clear to Auscultation, Good Air Exchange. Negative for: Respiratory Distress, Accessory Muscle Use Cardiovascular: Positive for: Regular Rate and Rhythm, Normal S1, S2 Abdomen: Positive for: Normal Bowel Sounds. Negative for: Tenderness, Distention, Peritoneal Signs Upper Extremity: Positive for: Normal Inspection. Negative for: Edema, Swelling Lower Extremity: Positive for: Normal Inspection. Negative for: Edema, Swelling Neurological: Positive for: GCS=15 Skin: Positive for: Normal Color Psychiatric: Positive for: Alert, Oriented x 3 - Medications Active Medications: Active Medications Generic Name Dose Route Start Last Admin Trade Name Freq PRN Reason Stop Dose Admin Sodium Chloride 1,000 mls @ 75 mls/hr 05/04/17 18:45 05/05/17 10:24 Sodium Chloride 0.9% IV 75 mls/hr .[id number] DESIREE Administration Pantoprazole Sodium 40 mg 05/05/17 10:00 05/05/17 10:24 Protonix Inj IVP 40 mg DAILY DESIREE Administration Rosuvastatin Calcium 10 mg 05/04/17 22:00 05/04/17 21:36 Crestor PO Not Given HS DESIREE - Patient Studies Lab Studies: Lab Studies 05/05/17 05/05/17 05/04/17 Range/Units 06:19 06:15 19:51 WBC 5.7 (4.8-10.8) K/uL RBC 4.71 (4.40-5.90) Mil/uL Hgb 13.2 (12.0-18.0) g/dL Hct 38.3 (35.0-51.0) % MCV 81.2 (80.0-94.0) fL MCH 28.0 (27.0-31.0) pg MCHC 34.4 (33.0-37.0) g/dL RDW 15.0 H (11.5-14.5) % Plt Count 162 (130-400) K/uL MPV 8.3 (7.2-11.7) fL Neut % (Auto) 76.6 H (50.0-75.0) % Lymph % (Auto) 9.4 L (20.0-40.0) % [place] % (Auto) 11.5 H (0.0-10.0) % Eos % (Auto) 2.2 (0.0-4.0) % Baso % (Auto) 0.3 (0.0-2.0) % Neut # 4.4 (1.8-7.0) K/uL Lymph # 0.5 L (1.0-4.3) K/uL [place] # 0.7 (0.0-0.8) K/uL Eos # 0.1 (0.0-0.7) K/uL Baso # 0.0 (0.0-0.2) K/uL Neutrophils % (Manual) 77 H (50-75) % Band Neutrophils % 1 (0-2) % Lymphocytes % (Manual) 9 L (20-40) % Monocytes % (Manual) 10 (0-10) % Eosinophils % (Manual) 3 (0-4) % Platelet Estimate Normal (NORMAL) Poikilocytosis (manual Slight Ovalocytes Slight Sodium 135 (132-148) mmol/L Potassium 4.3 (3.6-5.2) mmol/L Chloride 103 (98-107) mmol/L Carbon Dioxide 25 (22-30) mmol/L Anion Gap 11 (10-20) BUN 12 (9-20) mg/dL Creatinine 0.8 (0.8-1.5) mg/dL Est GFR ( Amer) > 60 Est GFR (Non-Af Amer) > 60 Random Glucose 71 L (75-110) mg/dL Hemoglobin A1c (4.2-6.5) % Calcium 8.4 L (8.6-10.4) mg/dl Phosphorus 2.7 (2.5-4.5) mg/dL Magnesium 1.6 (1.6-2.3) mg/dL Total Bilirubin 1.6 H (0.2-1.3) mg/dL AST 31 (17-59) U/L ALT 21 (21-72) U/L Alkaline Phosphatase 47 (38-126) U/L Total Protein 7.4 (6.3-8.3) g/dL Albumin 3.1 L D (3.5-5.0) g/dL Globulin 4.2 H (2.2-3.9) gm/dL Albumin/Globulin Ratio 0.7 L (1.0-2.1) TSH 3rd Generation 2.70 (0.46-4.68) mIU/L 05/04/17 Range/Units 10:51 WBC (4.8-10.8) K/uL RBC (4.40-5.90) Mil/uL Hgb (12.0-18.0) g/dL Hct (35.0-51.0) % MCV (80.0-94.0) fL MCH (27.0-31.0) pg MCHC (33.0-37.0) g/dL RDW (11.5-14.5) % Plt Count (130-400) K/uL MPV (7.2-11.7) fL Neut % (Auto) (50.0-75.0) % Lymph % (Auto) (20.0-40.0) % [place] % (Auto) (0.0-10.0) % Eos % (Auto) (0.0-4.0) % Baso % (Auto) (0.0-2.0) % Neut # (1.8-7.0) K/uL Lymph # (1.0-4.3) K/uL [place] # (0.0-0.8) K/uL Eos # (0.0-0.7) K/uL Baso # (0.0-0.2) K/uL Neutrophils % (Manual) (50-75) % Band Neutrophils % (0-2) % Lymphocytes % (Manual) (20-40) % Monocytes % (Manual) (0-10) % Eosinophils % (Manual) (0-4) % Platelet Estimate (NORMAL) Poikilocytosis (manual Ovalocytes Sodium (132-148) mmol/L Potassium (3.6-5.2) mmol/L Chloride (98-107) mmol/L Carbon Dioxide (22-30) mmol/L Anion Gap (10-20) BUN (9-20) mg/dL Creatinine (0.8-1.5) mg/dL Est GFR ( Amer) Est GFR (Non-Af Amer) Random Glucose (75-110) mg/dL Hemoglobin A1c 5.5 (4.2-6.5) % Calcium (8.6-10.4) mg/dl Phosphorus (2.5-4.5) mg/dL Magnesium (1.6-2.3) mg/dL Total Bilirubin (0.2-1.3) mg/dL AST (17-59) U/L ALT (21-72) U/L Alkaline Phosphatase (38-126) U/L Total Protein (6.3-8.3) g/dL Albumin (3.5-5.0) g/dL Globulin (2.2-3.9) gm/dL Albumin/Globulin Ratio (1.0-2.1) TSH 3rd Generation (0.46-4.68) mIU/L Laboratory Results - last 24 hr 05/04/17 05/04/17 05/05/17 10:51 19:51 06:15 WBC 5.7 RBC 4.71 Hgb 13.2 Hct 38.3 MCV 81.2 MCH 28.0 MCHC 34.4 RDW 15.0 H Plt Count 162 MPV 8.3 Neut % (Auto) 76.6 H Lymph % (Auto) 9.4 L [place] % (Auto) 11.5 H Eos % (Auto) 2.2 Baso % (Auto) 0.3 Neut # 4.4 Lymph # 0.5 L [place] # 0.7 Eos # 0.1 Baso # 0.0 Neutrophils % (Manual) 77 H Band Neutrophils % 1 Lymphocytes % (Manual) 9 L Monocytes % (Manual) 10 Eosinophils % (Manual) 3 Platelet Estimate Normal Poikilocytosis (manual Slight Ovalocytes Slight Sodium Potassium Chloride Carbon Dioxide Anion Gap BUN Creatinine Est GFR ( Amer) Est GFR (Non-Af Amer) Random Glucose Hemoglobin A1c 5.5 Calcium Phosphorus Magnesium Total Bilirubin AST ALT Alkaline Phosphatase Total Protein Albumin Globulin Albumin/Globulin Ratio TSH 3rd Generation 2.70 05/05/17 06:19 WBC RBC Hgb Hct MCV MCH MCHC RDW Plt Count MPV Neut % (Auto) Lymph % (Auto) [place] % (Auto) Eos % (Auto) Baso % (Auto) Neut # Lymph # [place] # Eos # Baso # Neutrophils % (Manual) Band Neutrophils % Lymphocytes % (Manual) Monocytes % (Manual) Eosinophils % (Manual) Platelet Estimate Poikilocytosis (manual Ovalocytes Sodium 135 Potassium 4.3 Chloride 103 Carbon Dioxide 25 Anion Gap 11 BUN 12 Creatinine 0.8 Est GFR ( Amer) > 60 Est GFR (Non-Af Amer) > 60 Random Glucose 71 L Hemoglobin A1c Calcium 8.4 L Phosphorus 2.7 Magnesium 1.6 Total Bilirubin 1.6 H AST 31 ALT 21 Alkaline Phosphatase 47 Total Protein 7.4 Albumin 3.1 L D Globulin 4.2 H Albumin/Globulin Ratio 0.7 L TSH 3rd Generation EKG/Cardiology Studies: Cardiology / EKG Studies 05/04/17 11:32 ELECTROCARDIOGRAM Stat Comment: BED5 Mode Of Transportation: STRETCHER Reason For Exam: STR Fingerstick Blood Sugar Results: 186 Review of Systems - Constitutional Constitutional: absent: Fever, Chills, Weakness - EENT Eyes: absent: Change in Vision Ears: absent: Dizziness - Cardiovascular Cardiovascular: absent: Chest Pain, Diaphoresis, Dyspnea, Edema, Lightheadedness , Palpitations, Syncope - Respiratory Respiratory: absent: Dyspnea, Wheezing, Pain on Inspiration - Gastrointestinal Gastrointestinal: absent: Abdominal Pain, Cramping, Diarrhea, Nausea, Vomiting - Neurological Neurological: absent: Dizziness, Headaches, Syncope, Tingling, Weakness - Endocrine Endocrine: absent: Fatigue, Palpitations Critical Care Progress Note - Nutrition Nutrition: Nutrition Category Date Time Status Dysphagia/Modified Consistency Diet [DIET] Diets 05/05/17 Breakfast Active Assessment/Plan - Assessment and Plan (Free Text) Assessment: Patient is a 82 year old male with past medical history of bladder cancer, A. fibrillation, CVA (2003), HTN, GERD, CHF and CAD, who presents to the ED via ambulance after he was found to be confused, slurred speech and left facial droop at the supermarket while shopping. Patient was given TPA at 11:45am and noted to have improved left-sided strength. Today: Plan: Transfer to Medical-surgical floor Plan: Neuro: Alert, awake and oriented, Hx of CVA (2003) Neurologist Consult, Dr. Pennington---> help appreciated * F/U recommendation Imaging: Head CT (05/04/17): No intracranial hemorrhage. 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 Head/Neck CTA (05/04/17): Unremarkable CT angiography of the brain and neck F/U : * BRAIN MRI without contrast * Echocardiogram and carotid doppler * EEG Labs: * lipid panel:T, Cholesterol:123, LDL: 64, HDL: 49 * hemoglobin A1c 5.5, * TSH 2.70 Medication/Management: * Crestor 10mg PO HS * NS @ 75mls/hr Cardio: Hx of HTN and A. fibrillation, CHF Miscellaneous Machine Operator Consult, Dr. Samson---> Help appreciated * F/u Echocardiogram * Labs: BNP: 2100 and negative cardiac enzymes Medication/Management: Home medication: Toprol XL 50mg PO BID Digoxin 0.25mg PO daily Lasix 40mg PO tab Pulm: No acute issues Endo: No acute issues ID: No acute issues Prophylaxis: DVT: SCDs, no anticoagulation at the moment until repeat head CT r/o intracranial hemorrhage GI: Protonix 40mg IV daily Plan: Transfer to medical surgery floor <Maco Tong - Last Filed: 05/05/17 17:32> CCU Objective - Vital Signs / Intake & Output Vital Signs (Last 4 hours): Vital Signs Pulse Resp BP Pulse Ox 05/05/17 17:00 103 H 20 96 05/05/17 16:57 106 H 05/05/17 16:40 106 H 21 05/05/17 16:30 81 23 05/05/17 16:20 86 24 05/05/17 16:19 94 H 16 127/87 05/05/17 16:10 86 12 05/05/17 16:00 81 10 L 05/05/17 15:50 90 20 05/05/17 15:40 95 H 22 05/05/17 15:30 113 H 13 05/05/17 15:20 86 18 05/05/17 15:19 88 19 156/83 H 05/05/17 15:10 103 H 15 05/05/17 15:00 89 22 05/05/17 14:50 90 11 L 05/05/17 14:40 82 19 05/05/17 14:30 81 19 05/05/17 14:20 77 19 05/05/17 14:19 86 21 139/83 05/05/17 14:10 85 20 05/05/17 14:00 83 22 05/05/17 13:50 95 H 18 05/05/17 13:40 96 H 15 05/05/17 13:30 90 16 Intake and Output (Last 8hrs): Intake & Output 05/05/17 05/05/17 05/05/17 06:59 14:59 22:59 Intake Total 600 600 225 Output Total 300 375 400 Balance 300 225 -175 Weight 220 lb Intake: Intake, IV Amount 600 600 225 RIGHT WRIST 600 600 225 Output: Urine 300 375 400 Condom 300 375 400 Other: # Voids Condom 1 1 - Medications Active Medications: Active Medications Generic Name Dose Route Start Last Admin Trade Name Arielq PRN Reason Stop Dose Admin Sodium Chloride 1,000 mls @ 75 mls/hr 05/04/17 18:45 05/05/17 10:24 Sodium Chloride 0.9% IV 75 mls/hr .[id number] DESIREE Administration Pantoprazole Sodium 40 mg 05/05/17 10:00 05/05/17 10:24 Protonix Inj IVP 40 mg DAILY DESIREE Administration Rosuvastatin Calcium 10 mg 05/04/17 22:00 05/04/17 21:36 Crestor PO Not Given HS DESIREE - Patient Studies Lab Studies: Lab Studies 05/05/17 05/05/17 05/04/17 Range/Units 06:19 06:15 19:51 WBC 5.7 (4.8-10.8) K/uL RBC 4.71 (4.40-5.90) Mil/uL Hgb 13.2 (12.0-18.0) g/dL Hct 38.3 (35.0-51.0) % MCV 81.2 (80.0-94.0) fL MCH 28.0 (27.0-31.0) pg MCHC 34.4 (33.0-37.0) g/dL RDW 15.0 H (11.5-14.5) % Plt Count 162 (130-400) K/uL MPV 8.3 (7.2-11.7) fL Neut % (Auto) 76.6 H (50.0-75.0) % Lymph % (Auto) 9.4 L (20.0-40.0) % [place] % (Auto) 11.5 H (0.0-10.0) % Eos % (Auto) 2.2 (0.0-4.0) % Baso % (Auto) 0.3 (0.0-2.0) % Neut # 4.4 (1.8-7.0) K/uL Lymph # 0.5 L (1.0-4.3) K/uL [place] # 0.7 (0.0-0.8) K/uL Eos # 0.1 (0.0-0.7) K/uL Baso # 0.0 (0.0-0.2) K/uL Neutrophils % (Manual) 77 H (50-75) % Band Neutrophils % 1 (0-2) % Lymphocytes % (Manual) 9 L (20-40) % Monocytes % (Manual) 10 (0-10) % Eosinophils % (Manual) 3 (0-4) % Platelet Estimate Normal (NORMAL) Poikilocytosis (manual Slight Ovalocytes Slight Sodium 135 (132-148) mmol/L Potassium 4.3 (3.6-5.2) mmol/L Chloride 103 (98-107) mmol/L Carbon Dioxide 25 (22-30) mmol/L Anion Gap 11 (10-20) BUN 12 (9-20) mg/dL Creatinine 0.8 (0.8-1.5) mg/dL Est GFR ( Amer) > 60 Est GFR (Non-Af Amer) > 60 Random Glucose 71 L (75-110) mg/dL Calcium 8.4 L (8.6-10.4) mg/dl Phosphorus 2.7 (2.5-4.5) mg/dL Magnesium 1.6 (1.6-2.3) mg/dL Total Bilirubin 1.6 H (0.2-1.3) mg/dL AST 31 (17-59) U/L ALT 21 (21-72) U/L Alkaline Phosphatase 47 (38-126) U/L Total Protein 7.4 (6.3-8.3) g/dL Albumin 3.1 L D (3.5-5.0) g/dL Globulin 4.2 H (2.2-3.9) gm/dL Albumin/Globulin Ratio 0.7 L (1.0-2.1) TSH 3rd Generation 2.70 (0.46-4.68) mIU/L Laboratory Results - last 24 hr 05/04/17 05/05/17 05/05/17 19:51 06:15 06:19 WBC 5.7 RBC 4.71 Hgb 13.2 Hct 38.3 MCV 81.2 MCH 28.0 MCHC 34.4 RDW 15.0 H Plt Count 162 MPV 8.3 Neut % (Auto) 76.6 H Lymph % (Auto) 9.4 L [place] % (Auto) 11.5 H Eos % (Auto) 2.2 Baso % (Auto) 0.3 Neut # 4.4 Lymph # 0.5 L [place] # 0.7 Eos # 0.1 Baso # 0.0 Neutrophils % (Manual) 77 H Band Neutrophils % 1 Lymphocytes % (Manual) 9 L Monocytes % (Manual) 10 Eosinophils % (Manual) 3 Platelet Estimate Normal Poikilocytosis (manual Slight Ovalocytes Slight Sodium 135 Potassium 4.3 Chloride 103 Carbon Dioxide 25 Anion Gap 11 BUN 12 Creatinine 0.8 Est GFR ( Amer) > 60 Est GFR (Non-Af Amer) > 60 Random Glucose 71 L Calcium 8.4 L Phosphorus 2.7 Magnesium 1.6 Total Bilirubin 1.6 H AST 31 ALT 21 Alkaline Phosphatase 47 Total Protein 7.4 Albumin 3.1 L D Globulin 4.2 H Albumin/Globulin Ratio 0.7 L TSH 3rd Generation 2.70 Critical Care Progress Note - Nutrition Nutrition: Nutrition Category Date Time Status Dysphagia/Modified Consistency Diet [DIET] Diets 05/05/17 Breakfast Active Attending/Attestation - Attestation I have personally seen and examined this patient.: Yes I have fully participated in the care of the patient.: Yes I have reviewed all pertinent clinical information: Yes Notes (Text): 05/05/17 17:29 Patient seen and examined in the intensive care unit. Case discussed with house staff in the morning rounds Patient is awake and responsive Status post thrombolytic therapy for CVA Able to move extremities Transfer to floor A. fib with controlled ventricular rate Anticoagulation per neurology and cardiology
--- NOTE | 2017-05-05 15:35 | CARD ---
APPROVED REPORT EKG Measurement Heart [id number] <Conclusion> Atrial fibrillation Abnormal ECG
--- NOTE | 2017-05-05 17:49 | CT ---
PROCEDURE: CT HEAD WITHOUT CONTRAST. HISTORY: POST tPA STROKE COMPARISON: Head CT without contrast 05/04/2017. TECHNIQUE: Axial computed tomography images were obtained through the head/brain without intravenous contrast. Radiation dose: Total exam DLP = 1505.54 mGy-cm. This CT exam was performed using one or more of the following dose reduction techniques: Automated exposure control, adjustment of the mA and/or kV according to patient size, and/or use of iterative reconstruction technique. FINDINGS: HEMORRHAGE: No intracranial hemorrhage. BRAIN: Mild diffuse cerebral atrophy chronic microangiopathy appear reiterated. Mild microangiopathy is likely again seen in the grace, lucency is seen which is may be artifactual from skullbase degenerated artifacts. Follow-up MRI is advised to exclude potential pontine infarction. No interval mass effect. A chronic lacune at the left external capsule is again noted. VENTRICLES: Unremarkable. No hydrocephalus. CALVARIUM: Unremarkable. PARANASAL SINUSES: Limited left ethmoid sinus disease is identified. MASTOID AIR CELLS: Unremarkable as visualized. No inflammatory changes. OTHER FINDINGS: None. IMPRESSION: Lucency at the grace is probably a function of artifact from skullbase bony anatomy, however, it is difficult to completely exclude potential infarction here and follow-up MRI is advised for greater characterization. Remainder the examination appears unchanged with age related neuro degenerative changes reiterated likely including the grace. No intracranial hemorrhage or mass effect is appreciated throughout the examination.
--- NOTE | 2017-05-05 17:52 | CARD ---
APPROVED REPORT EXAM: Two-dimensional and M-mode echocardiogram with Doppler and color Doppler. Other Information Quality : TDSRhythm : Atrial Fibrillation INDICATION CVA/TIA CAD Congenital Heart Disease RISK FACTORS Hypertension 2D DIMENSIONS IVSd1.2 (0.7-1.1cm)LVDd4.9 (3.9-5.9cm) PWd1.2 (0.7-1.1cm)LVDs3.5 (2.5-4.0cm) FS (%) 28.8 %LVEF (%)55.0 (>50%) M-Mode DIMENSIONS Left Atrium (MM)4.51 (2.5-4.0cm)Aortic Root4.10 (2.2-3.7cm) Aortic Cusp Exc.2.46 (1.5-2.0cm) Mitral Valve E/A ratio0.0 TDI E/Lateral E'0.0E/Medial E'0.0 Tricuspid Valve TR Peak [id number] Peak [id number] LEFT VENTRICLE The left ventricle is normal size. There is normal left ventricular wall thickness. The left ventricular function is normal. The left ventricular ejection fraction is within the normal range. There is normal LV segmental wall motion. RIGHT VENTRICLE The right ventricle is normal size. There is normal right ventricular wall thickness. The right ventricular systolic function is normal. ATRIA The left atrium is mildly dilated. The right atrium is mildly dilated. AORTIC VALVE The aortic valve is mildly thickened. There is mild aortic regurgitation. MITRAL VALVE There is no mitral valve stenosis. There is no mitral valve regurgitation noted. TRICUSPID VALVE There is mild pulmonary hypertension. GREAT VESSELS The aortic root is mildly enlarged and displays moderate sclerocalcific changes The IVC is dilated. <Conclusion> The left ventricle is normal size. There is normal left ventricular wall thickness. The left ventricular function is normal. The left ventricular ejection fraction is within the normal range. There is normal LV segmental wall motion. There is mild aortic regurgitation. The aortic root is mildly enlarged and displays moderate sclerocalcific changes There is mild pulmonary hypertension.
--- NOTE | 2017-05-05 19:20 | CP.PCM.PN ---
Subjective - Date & Time of Evaluation Date of Evaluation: 05/05/17 Time of Evaluation: 12:00 - Subjective Subjective: clinically same Objective - Vital Signs/Intake and Output Vital Signs (last 24 hours): Temp Pulse Resp BP Pulse Ox 98.0 F 84 23 132/79 95 05/05/17 16:00 05/05/17 18:10 05/05/17 18:10 05/05/17 17:19 05/05/17 17:10 Intake and Output: 05/05/17 05/06/17 18:59 06:59 Intake Total 900 Output Total 775 Balance 125 - Medications Medications: Current Medications Acetaminophen (Tylenol 325mg Tab) 650 mg PO Q8H PRN PRN Reason: Pain Sodium Chloride (Sodium Chloride 0.9%) 1,000 mls @ 75 mls/hr IV .[id number] [facility] Last Admin: 05/05/17 10:24 Dose: 75 mls/hr Pantoprazole Sodium (Protonix Inj) 40 mg IVP DAILY [facility] Last Admin: 05/05/17 10:24 Dose: 40 mg Rosuvastatin Calcium (Crestor) 10 mg PO HS [facility] Last Admin: 05/04/17 21:36 Dose: Not Given - Labs Labs: 05/05/17 06:15 05/05/17 06:19 PT 14.7 SECONDS (9.7-12.2) H 05/04/17 10:51 INR 1.3 05/04/17 10:51 APTT 32 SECONDS (21-34) 05/04/17 10:51 - Constitutional Appears: Well - Head Exam Head Exam: ATRAUMATIC, NORMAL INSPECTION, NORMOCEPHALIC - Eye Exam Eye Exam: EOMI, Normal appearance, PERRL Pupil Exam: NORMAL ACCOMODATION, PERRL - ENT Exam ENT Exam: Mucous Membranes Moist, Normal Exam - Neck Exam Neck Exam: Full ROM, Normal Inspection. absent: Lymphadenopathy - Respiratory Exam Respiratory Exam: Decreased Breath Sounds - Cardiovascular Exam Cardiovascular Exam: REGULAR RHYTHM, +S1, +S2 - GI/Abdominal Exam GI & Abdominal Exam: Soft, Diminished Bowel Sounds - Rectal Exam Rectal Exam: Deferred
--- NOTE | 2017-05-05 22:21 | CP.PCM.PN ---
Subjective - Date & Time of Evaluation Date of Evaluation: 05/05/17 Time of Evaluation: 09:05 - Subjective Subjective: Patient seen and evaluated Denies chest pain and dyspnea Comfortable Objective - Vital Signs/Intake and Output Vital Signs (last 24 hours): Temp Pulse Resp BP Pulse Ox 97.3 F L 86 22 154/92 H 95 05/05/17 20:00 05/05/17 21:50 05/05/17 21:50 05/05/17 20:36 05/05/17 21:20 Intake and Output: 05/05/17 05/06/17 18:59 06:59 Intake Total 900 75 Output Total 775 200 Balance 125 -125 - Medications Medications: Current Medications Acetaminophen (Tylenol 325mg Tab) 650 mg PO Q8H PRN PRN Reason: Pain Last Admin: 05/05/17 19:30 Dose: 650 mg Sodium Chloride (Sodium Chloride 0.9%) 1,000 mls @ 75 mls/hr IV .[id number] DESIREE Last Admin: 05/05/17 10:24 Dose: 75 mls/hr Pantoprazole Sodium (Protonix Inj) 40 mg IVP DAILY [facility] Last Admin: 05/05/17 10:24 Dose: 40 mg Rosuvastatin Calcium (Crestor) 10 mg PO HS [facility] Last Admin: 05/05/17 21:25 Dose: 10 mg - Labs Labs: 05/05/17 06:15 05/05/17 06:19 PT 14.7 SECONDS (9.7-12.2) H 05/04/17 10:51 INR 1.3 05/04/17 10:51 APTT 32 SECONDS (21-34) 05/04/17 10:51 - Constitutional Appears: Well - Head Exam Head Exam: ATRAUMATIC - Eye Exam Eye Exam: EOMI, Normal appearance, PERRL - ENT Exam ENT Exam: Mucous Membranes Moist - Neck Exam Neck Exam: Full ROM - Respiratory Exam Respiratory Exam: NORMAL BREATHING PATTERN - Cardiovascular Exam Cardiovascular Exam: Irregular Rhythm, +S1, +S2 - GI/Abdominal Exam GI & Abdominal Exam: Soft, Normal Bowel Sounds - Neurological Exam Neurological Exam: Alert, Awake, Oriented x3 - Psychiatric Exam Psychiatric exam: Normal Mood - Skin Skin Exam: Warm - Additional Findings Additional findings: Neuro examination: As per neurology Assessment and Plan - Assessment and Plan (Free Text) Assessment: Patient is a 82 year old male with past medical history of bladder cancer, A. fibrillation, CVA (2003), HTN, GERD, CHF and CAD, who presents to the ED via ambulance after he was found to be confused, slurred speech and left facial droop at the supermarket while shopping. Patient was given TPA at 11:45am and noted to have improved left-sided strength. Neuro: Alert, awake and oriented, Hx of CVA (2003) Neurologist Consult, Dr. Pennington---> help appreciated * F/U recommendation Imaging: Head CT (05/04/17): No intracranial hemorrhage. 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 Head/Neck CTA (05/04/17): Unremarkable CT angiography of the brain and neck F/U : * BRAIN MRI without contrast * Echocardiogram and carotid doppler * EEG Labs: * lipid panel:T, Cholesterol:123, LDL: 64, HDL: 49 * hemoglobin A1c 5.5, * TSH 2.70 Medication/Management: * Crestor 10mg PO HS * NS @ 75mls/hr Cardio: Hx of HTN and A. fibrillation, CHF * F/u Echocardiogram * Labs: BNP: 2100 and negative cardiac enzymes Medication/Management: Home medication: Toprol XL 50mg PO BID Digoxin 0.25mg PO daily Lasix 40mg PO tab Pulm: No acute issues Endo: No acute issues ID: No acute issues Prophylaxis: DVT: SCDs, no anticoagulation at the moment until repeat head CT r/o intracranial hemorrhage GI: Protonix 40mg IV daily
[2017-05-06 06:50] LABS: BASO % 0.5 % (0.0-2.0); EOS # 0.1 K/uL (0.0-0.7); EOS % 2.3 % (0.0-4.0); HEMATOCRIT 37.9 % (35.0-51.0); LYMPH # 0.8 K/uL (1.0-4.3); LYMPH % 13.3 % (20.0-40.0); MEAN CELL VOLUME 81.3 fL (80.0-94.0); MEAN CORPUSCULAR HEMOGLOBIN 28.1 pg (27.0-31.0); MEAN CORPUSCULAR HGB CONC 34.6 g/dL (33.0-37.0); MEAN PLATELET VOLUME 8.1 fL (7.2-11.7); MONO # 0.7 K/uL (0.0-0.8); MONO % 11.7 % (0.0-10.0); NRBC % 0.1 % (0.0-2.0); RED CELL DISTRIBUTION WIDTH 15.1 % (11.5-14.5); WHITE BLOOD COUNT 5.8 K/uL (4.8-10.8)
[2017-05-06 07:09] LABS: CHLORIDE 103 mmol/L (98-107); SODIUM 137 mmol/L (132-148)
[2017-05-06 07:11] LABS: BILIRUBIN,TOTAL 1.6 mg/dL (0.2-1.3); GFR AFRICAN-AMERICAN > 60
[2017-05-06 07:12] LABS: ALB/GLOB RATIO 0.8 (1.0-2.1); ALKALINE PHOSPHATASE 51 U/L (38-126); ALT/SGPT 22 U/L (21-72); AST/SGOT 22 U/L (17-59); BLOOD UREA NITROGEN 11 mg/dL (9-20); CALCIUM 8.5 mg/dl (8.6-10.4); CARBON DIOXIDE 23 mmol/L (22-30); GLUCOSE,RANDOM 72 mg/dL (75-110); PHOSPHOROUS 2.7 mg/dL (2.5-4.5)
[2017-05-06 07:13] LABS: MAGNESIUM 1.6 mg/dL (1.6-2.3)
--- NOTE | 2017-05-06 08:47 | PN ---
DATE: 05/06/2017 NEUROLOGICAL PROBLEM: Acute right anterior tertiary dysfunction, status post TPA. PHYSICAL EXAMINATION: VITAL SIGNS: Blood pressure 163/85, mean arterial pressure of 97; respiratory rate 16; temperature afebrile, and pulse rate 97. NEUROLOGICAL EXAMINATION: The patient is arousable. Speech is much better today. Follows commands. No right and left confusion. Left-sided weakness, he has almost regained his strength, 5-/5. Deep tendon reflexes are absent. Plantars are upgoing on his left side. The patient had repeated CT of the head, no acute bleed. No acute stroke process. I recommended MRI of the brain. The patient declined. He does not want to do MRI at present. From cardiac point of view, the patient should have been evaluated and proper medication should be given for long-term anticoagulation. The patient is neurologically stable and remarkable recovery following TPA. Young Pennington MD
[2017-05-06] MEDS: Metoprolol Succinate 50 mg XL Tab PO SCH (09:07)
[2017-05-06] MEDS ORDERED: Potassium Phosphate 15 MMOLE in Dextrose 5% In Water 250 ML IVPB ONE (09:34)
[2017-05-06] MEDS ORDERED: Metoprolol Succinate 50 mg XL Tab PO SCH (10:00)
[2017-05-06] MEDS ORDERED: Digoxin 250 mcg (0.25 mg) Tab PO SCH ×2 (10:00→18:00)
--- NOTE | 2017-05-06 11:43 | EEG ---
DATE: 05/05/2017 This is a 16-channel electroencephalogram of awake and lethargic adult. During the study, photic stimulation was performed. Hyperventilation was not performed. The resting electroencephalogram consists of 20 to 30 microvolt diffuse 4-5 Hz theta activity is noted at the parietal and occipital leads. Anteriorly, slow activities noted. Some intermittent muscle artifact and movement artifact contaminant with background rhythm. However, the slow activities continuously noted from the beginning. The photic stimulation did not evoke driving response noted at 2 to 20 Hz. IMPRESSION: This is an abnormal electroencephalogram because of persistent slowing throughout the record suggestive of bilateral cerebral dysfunction. This is probably secondary to metabolic, vascular or degenerative process. Please correlate the findings with the neurological and radiological studies. Young Pennington MD [facility] # [id number]
[2017-05-06 17:04] VITALS: PULSE 98
--- NOTE | 2017-05-06 18:15 | CP.PCM.PN ---
Subjective - Date & Time of Evaluation Date of Evaluation: 05/06/17 Time of Evaluation: 10:20 - Subjective Subjective: clinically same Objective - Vital Signs/Intake and Output Vital Signs (last 24 hours): Temp Pulse Resp BP Pulse Ox 98.2 F 88 20 182/105 H 96 05/06/17 17:54 05/06/17 17:54 05/06/17 17:54 05/06/17 17:54 05/06/17 17:54 Intake and Output: 05/06/17 05/06/17 06:59 18:59 Intake Total 655 Output Total 700 Balance -45 - Medications Medications: Current Medications Acetaminophen (Tylenol 325mg Tab) 650 mg PO Q8H PRN PRN Reason: Pain Last Admin: 05/06/17 05:13 Dose: 650 mg Aspirin (Aspirin) 325 mg PO DAILY [facility] Last Admin: 05/06/17 09:07 Dose: 325 mg Clonidine HCl (Catapres) 0.1 mg PO Q8 [facility] Digoxin (Lanoxin) 0.25 mg PO DAILY@1800 [facility] Last Admin: 05/06/17 17:02 Dose: 0.25 mg Furosemide (Lasix) 20 mg PO DAILY [facility] Last Admin: 05/06/17 09:07 Dose: 20 mg Hydrochlorothiazide (Hydrodiuril) 25 mg PO DAILY [facility] Last Admin: 05/06/17 13:12 Dose: 25 mg Hydrochlorothiazide (Hydrodiuril) 25 mg PO DAILY [facility] Last Admin: 05/06/17 17:03 Dose: 25 mg Metoprolol Succinate (Toprol Xl) 50 mg PO DAILY [facility] Last Admin: 05/06/17 09:07 Dose: 50 mg Pantoprazole Sodium (Protonix Inj) 40 mg IVP DAILY [facility] Last Admin: 05/06/17 09:07 Dose: 40 mg Rosuvastatin Calcium (Crestor) 10 mg PO HS [facility] Last Admin: 05/05/17 21:25 Dose: 10 mg - Labs Labs: 05/06/17 06:32 05/06/17 06:32 PT 14.7 SECONDS (9.7-12.2) H 05/04/17 10:51 INR 1.3 05/04/17 10:51 APTT 32 SECONDS (21-34) 05/04/17 10:51 - Constitutional Appears: Well - Head Exam Head Exam: ATRAUMATIC, NORMAL INSPECTION, NORMOCEPHALIC - Eye Exam Eye Exam: EOMI, Normal appearance, PERRL Pupil Exam: NORMAL ACCOMODATION, PERRL - ENT Exam ENT Exam: Mucous Membranes Moist, Normal Exam - Neck Exam Neck Exam: Full ROM, Normal Inspection. absent: Lymphadenopathy - Respiratory Exam Respiratory Exam: Decreased Breath Sounds - Cardiovascular Exam Cardiovascular Exam: REGULAR RHYTHM, +S1, +S2 - GI/Abdominal Exam GI & Abdominal Exam: Soft, Diminished Bowel Sounds - Rectal Exam Rectal Exam: Deferred
--- NOTE | 2017-05-07 08:01 | PN ---
DATE: 05/07/2017 NEUROLOGICAL PROBLEM: Status post TPA for his acute stroke. PHYSICAL EXAMINATION: VITAL SIGNS: Blood pressure 127/78, mean arterial pressure of 94; respiratory rate 18; temperature 97.7, and pulse rate 83, irregular. The patient is complaining of constipation. The patient's examination, almost he regained his strength on his symptomatic left side. The rest of the examination is unchanged. RECOMMENDATION: Cardiac followup; the patient need a long-term anticoagulation. The patient should get DVT prophylaxis, and the patient should be getting of the bed for physical therapy possible, the patient should be moved to acute rehabilitation. Young Pennington MD
[2017-05-07 08:21] VITALS: RESP 20
--- NOTE | 2017-05-07 09:00 | CP.PCM.PN ---
Subjective - Date & Time of Evaluation Date of Evaluation: 05/07/17 Time of Evaluation: 08:57 - Subjective Subjective: No SOB or CP Objective - Vital Signs/Intake and Output Vital Signs (last 24 hours): Temp Pulse Resp BP Pulse Ox 97.5 F L 81 20 146/92 H 96 05/07/17 07:10 05/07/17 07:10 05/07/17 07:10 05/07/17 07:10 05/07/17 07:10 Intake and Output: 05/07/17 05/07/17 06:59 18:59 Intake Total 350 Output Total 300 Balance 50 - Medications Medications: Current Medications Acetaminophen (Tylenol 325mg Tab) 650 mg PO Q8H PRN PRN Reason: Pain Last Admin: 05/07/17 02:52 Dose: 650 mg Aspirin (Aspirin) 325 mg PO DAILY [facility] Last Admin: 05/06/17 09:07 Dose: 325 mg Clonidine HCl (Catapres) 0.1 mg PO Q8 [facility] Last Admin: 05/07/17 05:41 Dose: 0.1 mg Digoxin (Lanoxin) 0.25 mg PO DAILY@1800 [facility] Last Admin: 05/06/17 17:02 Dose: 0.25 mg Furosemide (Lasix) 20 mg PO DAILY [facility] Last Admin: 05/06/17 09:07 Dose: 20 mg Hydrochlorothiazide (Hydrodiuril) 25 mg PO DAILY [facility] Last Admin: 05/06/17 13:12 Dose: 25 mg Hydrochlorothiazide (Hydrodiuril) 25 mg PO DAILY [facility] Last Admin: 05/06/17 17:03 Dose: 25 mg Metoprolol Succinate (Toprol Xl) 50 mg PO DAILY [facility] Last Admin: 05/06/17 09:07 Dose: 50 mg Pantoprazole Sodium (Protonix Inj) 40 mg IVP DAILY [facility] Last Admin: 05/06/17 09:07 Dose: 40 mg Rosuvastatin Calcium (Crestor) 10 mg PO HS [facility] Last Admin: 05/06/17 21:27 Dose: 10 mg - Labs Labs: 05/06/17 06:32 05/06/17 06:32 PT 14.7 SECONDS (9.7-12.2) H 05/04/17 10:51 INR 1.3 05/04/17 10:51 APTT 32 SECONDS (21-34) 05/04/17 10:51 - Constitutional Appears: Well - Head Exam Head Exam: ATRAUMATIC - Eye Exam Eye Exam: Normal appearance - ENT Exam ENT Exam: Mucous Membranes Moist - Respiratory Exam Respiratory Exam: Clear to Ausculation Bilateral - Cardiovascular Exam Cardiovascular Exam: Irregular Rhythm, +S1, +S2 - GI/Abdominal Exam GI & Abdominal Exam: Soft - Neurological Exam Neurological Exam: Oriented x3 - Skin Skin Exam: Warm Assessment and Plan - Assessment and Plan (Free Text) Assessment: * Acute stroke s/p tPA * Chronic AFib -- Rate controlled. Was not on anticoagulation at home * Preserved LVEF -- By echo * ? CAD (per hospital notes, but patient declines any PCI, ME, or abnormal stress test) * HTN Plan: * Start anticoagulation for Afib once cleared by neurology in setting of recent stroke. I would recommend Eliquis. * Cont current cardiac meds, as BP is better controlled now No further inpt cardiac workup required at this time
[2017-05-07] MEDS: Metoprolol Succinate 50 mg XL Tab PO SCH (09:03)
[2017-05-07 11:02] LABS: BASO % 0.3 % (0.0-2.0); EOS # 0.1 K/uL (0.0-0.7); EOS % 1.8 % (0.0-4.0); HEMATOCRIT 39.2 % (35.0-51.0); LYMPH # 0.4 K/uL (1.0-4.3); LYMPH % 6.7 % (20.0-40.0); MEAN CELL VOLUME 80.9 fL (80.0-94.0); MEAN CORPUSCULAR HEMOGLOBIN 27.7 pg (27.0-31.0); MEAN CORPUSCULAR HGB CONC 34.3 g/dL (33.0-37.0); MONO # 0.8 K/uL (0.0-0.8); MONO % 12.8 % (0.0-10.0); PLATELET COUNT 152 K/uL (130-400); RED CELL DISTRIBUTION WIDTH 15.2 % (11.5-14.5); WHITE BLOOD COUNT 5.9 K/uL (4.8-10.8)
[2017-05-07 11:13] LABS: CHLORIDE 99 mmol/L (98-107); SODIUM 135 mmol/L (132-148)
[2017-05-07 11:14] LABS: POTASSIUM 3.5 mmol/L (3.6-5.2)
[2017-05-07 11:16] LABS: ALKALINE PHOSPHATASE 51 U/L (38-126); AST/SGOT 25 U/L (17-59); BILIRUBIN,TOTAL 1.8 mg/dL (0.2-1.3); BLOOD UREA NITROGEN 14 mg/dL (9-20); CARBON DIOXIDE 27 mmol/L (22-30); GFR AFRICAN-AMERICAN > 60; GLUCOSE,RANDOM 125 mg/dL (75-110); PHOSPHOROUS 2.6 mg/dL (2.5-4.5); TOTAL PROTEIN 7.5 g/dL (6.3-8.3)
[2017-05-07 11:17] LABS: ALT/SGPT 23 U/L (21-72); CALCIUM 8.8 mg/dl (8.6-10.4); MAGNESIUM 1.6 mg/dL (1.6-2.3)
[2017-05-07 11:23] LABS: ALB/GLOB RATIO 0.9 (1.0-2.1)
[2017-05-07] MEDS ORDERED: Potassium Chloride 20 mEq ER Tab PO SCH (11:45)
[2017-05-07 11:49] LABS: EOSINOPHIL 2 % (0-4); NEUTROPHIL 77 % (50-75); TOTAL CELLS COUNTED 100
--- NOTE | 2017-05-07 14:02 | CP.PCM.PN ---
Subjective - Date & Time of Evaluation Date of Evaluation: 05/07/17 Time of Evaluation: 14:02 Objective - Vital Signs/Intake and Output Vital Signs (last 24 hours): Temp Pulse Resp BP Pulse Ox 97.5 F L 79 20 139/82 97 05/07/17 07:10 05/07/17 13:42 05/07/17 13:42 05/07/17 13:42 05/07/17 13:42 Intake and Output: 05/07/17 05/07/17 06:59 18:59 Intake Total 350 Output Total 300 Balance 50 - Medications Medications: Current Medications Acetaminophen (Tylenol 325mg Tab) 650 mg PO Q8H PRN PRN Reason: Pain Last Admin: 05/07/17 12:08 Dose: 650 mg Apixaban (Eliquis) 5 mg PO BID [facility] Aspirin (Aspirin) 325 mg PO DAILY [facility] Last Admin: 05/07/17 09:03 Dose: 325 mg Clonidine HCl (Catapres) 0.1 mg PO Q8 [facility] Last Admin: 05/07/17 13:41 Dose: 0.1 mg Digoxin (Lanoxin) 0.25 mg PO DAILY@1800 [facility] Last Admin: 05/06/17 17:02 Dose: 0.25 mg Furosemide (Lasix) 20 mg PO DAILY [facility] Last Admin: 05/07/17 09:02 Dose: 20 mg Hydrochlorothiazide (Hydrodiuril) 25 mg PO DAILY [facility] Last Admin: 05/07/17 09:03 Dose: 25 mg Hydrochlorothiazide (Hydrodiuril) 25 mg PO DAILY [facility] Last Admin: 05/07/17 10:24 Dose: Not Given Metoprolol Succinate (Toprol Xl) 50 mg PO DAILY [facility] Last Admin: 05/07/17 09:03 Dose: 50 mg Pantoprazole Sodium (Protonix Inj) 40 mg IVP DAILY [facility] Last Admin: 05/07/17 09:02 Dose: 40 mg Potassium Chloride (K-Dur 20 Meq Er Tab) 40 meq PO DAILY [facility] Last Admin: 05/07/17 12:08 Dose: 40 meq Rosuvastatin Calcium (Crestor) 10 mg PO HS [facility] Last Admin: 05/06/17 21:27 Dose: 10 mg - Labs Labs: 05/07/17 10:13 05/07/17 10:13 PT 14.7 SECONDS (9.7-12.2) H 05/04/17 10:51 INR 1.3 05/04/17 10:51 APTT 32 SECONDS (21-34) 05/04/17 10:51
[2017-05-07 15:52] VITALS: BP 151/89; PULSE 77; TEMP 97.6
--- NOTE | 2017-05-07 17:04 | PCM.HF ---
Heart Failure Core Measure - Heart Failure Ejection Fraction: 40 % or Greater DUANE Inhibitor Prescribed: No Contraindication/Reason for not providing: NORMOTENSIVE, NOT RX BY CARDIOLOGY Beta-Ludwin Prescribed: Metoprolol Succinate Angiotensin II Receptor Ludwin Prescribed: No Contraindication/Reason for not providing: NORMOTENSIVE, NOT RX BY CARDIOLOGY AnticoagulationTherapy for Atrial Fibrillation/Atrialflutter: Yes Aldosterone Antagonist Prescribed: No Contraindication/Reason for not providing: NORMOTENSIVE, NOT RX BY CARDIOLOGY Hydralazine Nitrate Prescribed: No Contraindication/Reason for not providing: NORMOTENSIVE, NOT RX BY CARDIOLOGY Implantable Cardioverter Defibrillator Therapy: No Contraindication/Reason for not providing: NOT INDICATED AT PRESENT Cardiac Resynchronization Therapy Prescribed: No Contraindication/Reason for not providing: NOT INDICATED AT PRESENT - Follow up [facility] Follow Up Date (must be within 7 days from discharge): 05/11/17 Follow Up Time: 09:00
[2017-05-09 13:21] VITALS: O2SAT 99
== END 2017-05-07 16:30 | disposition home or self-care (01) | DRG 62 ==
LOC: C.ER 10:38 → C.9E 14:21 → C.9I 16:17 → C.6T 05-06 12:01
PROVIDERS: ADMIT Internal Medicine Nephrology; ATTEND Internal Medicine Nephrology
DX: G45.9 Transient cerebral ischemic attack, unspecified (principal); G81.94 Hemiplegia, unspecified affecting left nondominant side; I50.9 Heart failure, unspecified; I11.0 Hypertensive heart disease with heart failure; K62.5 Hemorrhage of anus and rectum; I48.2 Chronic atrial fibrillation; H53.462 Homonymous bilateral field defects, left side; I25.10 Atherosclerotic heart disease of native coronary artery without angina pectoris; K21.9 Gastro-esophageal reflux disease without esophagitis; R29.810 Facial weakness; Z79.01 Long term (current) use of anticoagulants; Z85.51 Personal history of malignant neoplasm of bladder; Z86.73 Personal history of transient ischemic attack (TIA), and cerebral infarction without residual deficits; Z87.891 Personal history of nicotine dependence

== ENCOUNTER 2017-07-11 20:57 | Inpatient (IN) | payer MEDICARE ==
[2017-07-11 20:58] VITALS: PULSE 80; BMI 36.6
--- NOTE | 2017-07-11 22:11 | C.PDOC ---
History Of Present Illness 82 year old male with a history of stroke presents to the ED complaining of blurry vision, onset 2 hours ago. This is the last time well. Patient was watching television when suddenly he could not see clearly. His left eye is very blurry while his right is blurry but less. He denies numbness or weakness or slurred speech. Also denies any pain. Patient was here 2 months ago for CVA and was administered tPA with resolution of symptoms after rehab. Time Seen by Provider: 07/11/17 21:58 Chief Complaint (Nursing): Eye Problem Past Medical History Reviewed: Historical Data, Nursing Documentation, Vital Signs Vital Signs: Last Vital Signs Temp 98.7 F 07/11/17 21:32 Pulse 69 07/11/17 21:32 Resp 20 07/11/17 21:32 BP 187/92 H 07/11/17 21:32 Pulse Ox 97 07/11/17 23:23 - Medical History PMH: Atrial Fibrillation, CAD, Cardia Arrhythmia, CHF, GERD, HTN, Malignancy ( Bladder) - [facility] Procedures CONTROL POSTOP PROST HEM (02/24/14) CYSTOSCOPY NEC (12/10/14) INJECT/INFUSE NEC (06/18/12) INJECT/INFUSE THROMBOLYTIC AGENT (09/27/03) INTRODUCE OTH THROMBOLYTIC IN PERIPH VEIN, PERC (05/04/17) NEBULIZER THERAPY (06/21/13) PARTIAL URETERECTOMY (06/10/12) RETROGRADE PYELOGRAM (02/24/14) TRANSURETH BLADD BIOPSY (02/24/14) TU BLADDER CLEARANCE (02/24/14) TU DESTRUC BLADD LES NEC (12/10/14) URETERAL CATHETERIZATION (06/10/12) Family History: States: No Known Family Hx - Social History Hx Tobacco Use: No Hx Alcohol Use: No Hx Substance Use: No - Immunization History Hx Tetanus Toxoid Vaccination: No Hx Influenza Vaccination: No Hx Pneumococcal Vaccination: No Review Of Systems Except As Marked, All Systems Reviewed And Found Negative. Neurological: Negative for: Weakness, Numbness Physical Exam - Physical Exam Additional Physical Exam Comments: Constitutional: No acute distress. Head: Normocephalic. Atraumatic. Eyes: PERRL. ENT: Moist mucous membranes. Neck: Supple. Cardiovascular: Regular rate. Radial pulse 2+ bilaterally. Chest: No tenderness. Respiratory: Clear to auscultation bilaterally. GI: Soft. Nontender. Nondistended. Back: No CVA tenderness. Musculoskeletal: No tenderness or swelling. Skin: No rash. Neurologic: Alert. Bilateral left hemianopsia, otherwise CN II to XII intact. Motor 5/5 x 4. Sensation to light touch intact bilaterally. FTN normal. ED Course And Treatment - Laboratory Results Result Diagrams: 07/11/17 22:53 07/11/17 22:53 O2 Sat by Pulse Oximetry: 97 NIHSS Stroke Scale - Date/Time Evaluation Performed Date Performed: 07/11/17 Time Performed: 22:16 When Was NIHSS Performed: Baseline - How Severe is the Stoke Level of Consciousness: 0=Alert LOC to Questions: 0=Both comments correct LOC to commands: 0=Obeys both correctly Best Gaze: 0=Normal Visual: 2=Complete hemianopia Facial: 0=Normal Motor Arm - Left: 0=No drift Motor Arm - Right: 0=No drift Motor Leg - Left: 0=No drift Motor Leg - Right: 0=No drift Limb Ataxia: 0=Absent Sensory: 0=Normal Best Language: 0=No aphasia Dysarthia: 0=Normal articulation Extinction & Inattention (Neglect): 0=Normal, no object Score: 2 Severity Of Stroke: 1-4= Minor Stroke rTPA Inclusion/Exclusion - Refusal of Treatment Patient Refused Treatment: No - Inclusion Criteria for Altepase Patient is 18 years or Older: Yes The Clinical Diagnosis of Ischemic Stroke That is Causing a Potentially Disabling Neurological Deficit: Yes Time of Onset is Well Established to be Less Than 270 Minute Before Treatment Would Begin: Yes Risk/Benefit Discussed With Patient/Family Member Present: Yes - Exclusion Criteria for Altepase Less Than 3 Months Had a Recent: Stroke Medical Decision Making Medical Decision Making: Discussed case with Dr. Pennington neurology storage solutions architect who remembers patient from 2 months ago, recommends against tPA. Patient with CVA 2 months ago, meeting exclusion criteria. Aspirin administered. According to previous charts, patient was advised to take anticoagulation on discharge. He states he has been taking baby aspirin on and off. EKG Afib 80 bpm, no ST elevations. CXR no acute disease. CT Head: FINDINGS: There is atrophy. There is chronic small vessel ischemic disease. No evidence of acute infarct. There is no hemorrhage or edema. Partial opacification of the left ethmoid sinus. Similar finding described in prior report. Actual images not provided. The osseous structures are normal. IMPRESSION: No acute findings. Admitted to hospitalist service under Dr. Ortiz with Dr. Pennington on consult. Disposition Discussed With Dr.: Young Pennington Doctor Will See Patient In The: Hospital - Disposition Disposition: HOSPITALIZED Disposition Time: 23:05 Condition: GUARDED Forms: [employer] (Romanian) - POA Core Measure Indicators: Code Stroke - Clinical Impression Clinical Impression: Acute CVA (cerebrovascular accident), Hemianopia
--- NOTE | 2017-07-11 22:45 | CT ---
EXAM: CT Head Without Intravenous Contrast EXAM DATE/TIME: 07/11/2017 10:08 PM CLINICAL HISTORY: 82 years old, male; Signs and symptoms; Visual disturbance; Additional info: Vision change, l hemianopsia TECHNIQUE: Axial computed tomography images of the head/brain without intravenous contrast. All CT scans at this facility use one or more dose reduction techniques, viz.: automated exposure control; ma/kV adjustment per patient size (including targeted exams where dose is matched to indication; i.e. head); or iterative reconstruction technique. COMPARISON: No relevant prior studies available. FINDINGS: There is atrophy. There is chronic small vessel ischemic disease. No evidence of acute infarct. There is no hemorrhage or edema. Partial opacification of the left ethmoid sinus. Similar finding described in prior report. Actual images not provided. The osseous structures are normal. IMPRESSION: No acute findings.
[2017-07-11 22:56] LABS: BASO % 0.4 % (0.0-2.0); EOS # 0.1 K/uL (0.0-0.7); EOS % 1.4 % (0.0-4.0); HEMATOCRIT 38.6 % (35.0-51.0); LYMPH # 0.7 K/uL (1.0-4.3); LYMPH % 8.8 % (20.0-40.0); MEAN CORPUSCULAR HEMOGLOBIN 29.1 pg (27.0-31.0); MEAN CORPUSCULAR HGB CONC 34.5 g/dL (33.0-37.0); MEAN PLATELET VOLUME 7.7 fL (7.2-11.7); MONO # 0.9 K/uL (0.0-0.8); PLATELET COUNT 180 K/uL (130-400); RED CELL DISTRIBUTION WIDTH 15.9 % (11.5-14.5); WHITE BLOOD COUNT 8.1 K/uL (4.8-10.8)
[2017-07-11 23:00] LABS: MEAN CELL VOLUME 84.5 fL (80.0-94.0)
[2017-07-11 23:08] LABS: ALB/GLOB RATIO 1.3 (1.0-2.1); ALKALINE PHOSPHATASE 61 U/L (38-126); ALT/SGPT 33 U/L (21-72); AST/SGOT 23 U/L (17-59); BILIRUBIN,TOTAL 1.4 mg/dL (0.2-1.3); BLOOD UREA NITROGEN 19 mg/dL (9-20); CALCIUM 8.3 mg/dl (8.6-10.4); CARBON DIOXIDE 33 mmol/L (22-30); CHLORIDE 101 mmol/L (98-107); CHOLESTEROL 129 mg/dL (0-199); GFR AFRICAN-AMERICAN > 60; GLUCOSE,RANDOM 107 mg/dL (75-110); POTASSIUM 4.9 mmol/L (3.6-5.2); SODIUM 138 mmol/L (132-148); TOTAL PROTEIN 7.1 g/dL (6.3-8.3)
[2017-07-11 23:28] LABS: INR 1.2
[2017-07-11 23:43] LABS: NEUTROPHIL 83 % (50-75); REACTIVE LYMPHOCYTES 1 % (0-0); TOTAL CELLS COUNTED 100
[2017-07-12] MEDS ORDERED: Heparin25000 units/250ml 1/2NS 25,000 UNITS/250 ML BAG IV PRN (01:48)
[2017-07-12 03:26] LABS: TROPONIN I 0.014 ng/mL (0.00-0.120)
--- NOTE | 2017-07-12 03:38 | CP.PCM.HP ---
<Gabriel Purcell - Last Filed: 07/12/17 03:41> History of Present Illness - History of Present Illness History of Present Illness: Medicine H/P CC: Blurry Vision HPI: Patient is a 82M with a PMH of 2 CVA both treated with TPA, bladder cancer , A. fibrillation, HTN, GERD, CHF and CAD who presents to the ED after he was watching TV and all of a sudden he started having blurry vision in his L. eye. He States that the TV became blurry and it was difficult to see his hand. He states that his vision is still blurry but has improved since its onset. He complains of prior episodes but this is worse. He denies any syncope, tingling, numbness, weakness or headache. ROS: Per HPI PMD: Cardiello PMH: bladder cancer, A. fibrillation, CVA , HTN, GERD, CHF and CAD PSH: Back surgery, Partila uretertectomy, TURB SH: Lives alone, admits to 40 years of tobacco use but quit over 30 years ago. Denies ETOH and illicit drug use FH: Unknown Meds: Clonidine, Lasix, HCTZ, Toprol, Crestor Allergies: NKDA Present on Admission - Present on Admission Any Indicators Present on Admission: No Review of Systems - Review of Systems Review of Systems: per HPI Past Patient History - Infectious Disease Hx of Infectious Diseases: None - Tetanus Immunizations Tetanus Immunization: Unknown - Past Medical History & Family History Past Medical History?: Yes - Past Social History Smoking Status: Never Smoked - CARDIAC Hx Atrial Fibrillation: Yes Hx Cardia Arrhythmia: Yes Hx Congestive Heart Failure: Yes Hx Hypertension: Yes - NEUROLOGICAL Hx Neurological Disorder: Yes HX Cerebrovascular Accident: Yes - HEENT Hx HEENT Problems: Yes Hx Cataracts: Yes (RACHEAL) - HEMATOLOGICAL/ONCOLOGICAL Hx Cancer: Yes (treated prostate/bladder) - INTEGUMENTARY Other/Comment: skin in both lower ext hyperpigmented - MUSCULOSKELETAL/RHEUMATOLOGICAL Hx Musculoskeletal Disorders: Yes - GASTROINTESTINAL Hx Gastrointestinal Disorders: Yes Hx Gastroesophageal Reflux: Yes - GENITOURINARY/GYNECOLOGICAL Hx Genitourinary Disorders: Yes (bladder tumor removed 2010) Hx Prostate Problems: Yes - PSYCHIATRIC Hx Substance Use: No - SURGICAL HISTORY Hx Surgeries: Yes Other/Comment: pilonidal cyst removed - ANESTHESIA Hx Anesthesia: Yes Hx Anesthesia Reactions: No Meds Allergies/Adverse Reactions: Allergies Allergy/AdvReac Type Severity Reaction Status Date / Time No Known Allergies Allergy Verified 07/11/17 21:41 Physical Exam - Constitutional Appears: Well, Non-toxic, No Acute Distress - Head Exam Head Exam: ATRAUMATIC, NORMAL INSPECTION, NORMOCEPHALIC - Eye Exam Eye Exam: EOMI, Normal appearance, PERRL. absent: Conjunctival injection, Nystagmus, Periorbital swelling, Periorbital tenderness, Scleral icterus Pupil Exam: NORMAL ACCOMODATION, PERRL. absent: Fixed, Irregular, Miosis, Mydriatic, Unequal - ENT Exam ENT Exam: Mucous Membranes Moist, Normal External Ear Exam, Normal Oropharynx - Respiratory Exam Respiratory Exam: Clear to Auscultation Bilateral, NORMAL BREATHING PATTERN - Cardiovascular Exam Cardiovascular Exam: REGULAR RHYTHM - GI/Abdominal Exam GI & Abdominal Exam: Normal Bowel Sounds, Soft. absent: Distended, Tenderness - Extremities Exam Extremities exam: Positive for: joint swelling (B/l skin changes from venous stasis, 3+ pitting). Negative for: tenderness - Neurological Exam Neurological exam: Alert, CN II-XII Intact, Oriented x3 - Expanded Neurological Exam Expanded Patient oriented to: person, place, time Speech: Fluid Speech Cranial nerves: EOM's Intact: Normal (visual field deficit in L. Periphery), Facial Sensation: Normal, Nystagmus: Normal, Tongue Deviation: Normal Cerebellar Function: Finger to Nose: Normal, Heel to Gregg: Normal, Romberg: Normal Upper motor neuron: Babinski Sign: Normal, Pronator Drift: Normal Sensory exam: Lower Extremity Light Touch: Normal, Upper Extremity Light Touch: Normal Neuro motor strength exam: Left Upper Extremity: 5, Right Upper Extremity: 5, Left Lower Extremity: 5, Right Lower Extremity: 5 Coma Scale Eye Opening: SPONTANEOUS Coma Scale Motor Response: OBEYS COMMANDS - Psychiatric Exam Psychiatric exam: Normal Affect, Normal Mood - Skin Skin Exam: Dry, Intact, Rash, Warm Results - Vital Signs Recent Vital Signs: Last Vital Signs Temp 98.1 F 07/12/17 01:43 Pulse 71 07/12/17 01:43 Resp 20 07/12/17 01:43 BP 136/75 07/12/17 01:43 Pulse Ox 99 07/12/17 01:43 - Labs Result Diagrams: 07/11/17 22:53 07/11/17 22:53 Labs: Laboratory Results - last 24 hr 07/11/17 07/11/17 07/11/17 22:14 22:53 22:53 WBC 8.1 RBC 4.57 Hgb 13.3 Hct 38.6 MCV 84.5 D MCH 29.1 MCHC 34.5 RDW 15.9 H Plt Count 180 MPV 7.7 Neut % (Auto) 78.4 H Lymph % (Auto) 8.8 L [place] % (Auto) 11.0 H Eos % (Auto) 1.4 Baso % (Auto) 0.4 Neut # 6.3 Lymph # 0.7 L [place] # 0.9 H Eos # 0.1 Baso # 0.0 Neutrophils % (Manual) 83 H Lymphocytes % (Manual) 8 L Reactive Lymphs % 1 H Monocytes % (Manual) 8 Platelet Estimate Normal Anisocytosis (manual) Slight PT 13.6 H INR 1.2 APTT 32 Sodium Potassium Chloride Carbon Dioxide Anion Gap BUN Creatinine Est GFR ( Amer) Est GFR (Non-Af Amer) POC Glucose (mg/dL) 101 Random Glucose Calcium Total Bilirubin AST ALT Alkaline Phosphatase Total Creatine Kinase CK-MB (Mass) Troponin I Total Protein Albumin Globulin Albumin/Globulin Ratio Triglycerides Cholesterol LDL Cholesterol Direct HDL Cholesterol Blood Type Antibody Screen 07/11/17 07/11/17 07/12/17 22:53 23:05 02:16 WBC RBC Hgb Hct MCV MCH MCHC RDW Plt Count MPV Neut % (Auto) Lymph % (Auto) [place] % (Auto) Eos % (Auto) Baso % (Auto) Neut # Lymph # [place] # Eos # Baso # Neutrophils % (Manual) Lymphocytes % (Manual) Reactive Lymphs % Monocytes % (Manual) Platelet Estimate Anisocytosis (manual) PT INR APTT Sodium 138 Potassium 4.9 Chloride 101 Carbon Dioxide 33 H Anion Gap 9 L BUN 19 Creatinine 1.1 Est GFR ( Amer) > 60 Est GFR (Non-Af Amer) > 60 POC Glucose (mg/dL) Random Glucose 107 Calcium 8.3 L Total Bilirubin 1.4 H AST 23 ALT 33 Alkaline Phosphatase 61 Total Creatine Kinase 42 L CK-MB (Mass) 1.43 Troponin I 0.0180 0.0140 Total Protein 7.1 Albumin 4.0 Globulin 3.1 Albumin/Globulin Ratio 1.3 Triglycerides 61 D Cholesterol 129 LDL Cholesterol Direct 66 HDL Cholesterol 50 Blood Type A NEGATIVE Antibody Screen Negative Assessment & Plan (1) Hemianopia Assessment and Plan: [facility] (Neuro) Cards (Patricia) CT Head - No acute infarct MRI - F/U Carotid Doppler - F/U Heparin Drip ASA 325 1x Status: Acute Priority: High (2) History of CVA (cerebrovascular accident) Assessment and Plan: Patient had two CVA, both with TPA admin Was previously on warfarin but stopped due to bleeding s/p TURB May need anticoag, f/u with [facility] after MRI Status: Chronic Priority: High (3) CHF (congestive heart failure) Assessment and Plan: Cards (Patricia) Lasix 20 PO HS HCTZ 25 PO QD Metoprolol 50 PO QD Crestor 10 PO HS ASA 81 PO QD Status: Chronic Priority: High (4) Fungal disease Assessment and Plan: Podiatry ([facility]) F/U FILOMENA prep, treat accordingly LE Doppler given LE Swelling Status: Chronic Priority: Medium (5) Hypertension Assessment and Plan: Catapres 0.1 PO Q8 Status: Acute (6) Prophylactic measure Assessment and Plan: Heart Healthy Diet Status: Acute Priority: Medium <Elias Ortiz P - Last Filed: 07/12/17 06:58> Results - Vital Signs Recent Vital Signs: Last Vital Signs Temp 97.6 F 07/12/17 04:14 Pulse 74 07/12/17 04:14 Resp 20 07/12/17 04:14 BP 122/74 07/12/17 04:14 Pulse Ox 98 07/12/17 04:14 - Labs Result Diagrams: 07/11/17 22:53 07/11/17 22:53 Labs: Laboratory Results - last 24 hr 07/11/17 07/11/17 07/11/17 22:14 22:53 22:53 WBC 8.1 RBC 4.57 Hgb 13.3 Hct 38.6 MCV 84.5 D MCH 29.1 MCHC 34.5 RDW 15.9 H Plt Count 180 MPV 7.7 Neut % (Auto) 78.4 H Lymph % (Auto) 8.8 L [place] % (Auto) 11.0 H Eos % (Auto) 1.4 Baso % (Auto) 0.4 Neut # 6.3 Lymph # 0.7 L [place] # 0.9 H Eos # 0.1 Baso # 0.0 Neutrophils % (Manual) 83 H Lymphocytes % (Manual) 8 L Reactive Lymphs % 1 H Monocytes % (Manual) 8 Platelet Estimate Normal Anisocytosis (manual) Slight PT 13.6 H INR 1.2 APTT 32 Sodium Potassium Chloride Carbon Dioxide Anion Gap BUN Creatinine Est GFR ( Amer) Est GFR (Non-Af Amer) POC Glucose (mg/dL) 101 Random Glucose Calcium Total Bilirubin AST ALT Alkaline Phosphatase Total Creatine Kinase CK-MB (Mass) Troponin I Total Protein Albumin Globulin Albumin/Globulin Ratio Triglycerides Cholesterol LDL Cholesterol Direct HDL Cholesterol Blood Type Antibody Screen 07/11/17 07/11/17 07/12/17 22:53 23:05 02:16 WBC RBC Hgb Hct MCV MCH MCHC RDW Plt Count MPV Neut % (Auto) Lymph % (Auto) [place] % (Auto) Eos % (Auto) Baso % (Auto) Neut # Lymph # [place] # Eos # Baso # Neutrophils % (Manual) Lymphocytes % (Manual) Reactive Lymphs % Monocytes % (Manual) Platelet Estimate Anisocytosis (manual) PT INR APTT Sodium 138 Potassium 4.9 Chloride 101 Carbon Dioxide 33 H Anion Gap 9 L BUN 19 Creatinine 1.1 Est GFR ( Amer) > 60 Est GFR (Non-Af Amer) > 60 POC Glucose (mg/dL) Random Glucose 107 Calcium 8.3 L Total Bilirubin 1.4 H AST 23 ALT 33 Alkaline Phosphatase 61 Total Creatine Kinase 42 L CK-MB (Mass) 1.43 Troponin I 0.0180 0.0140 Total Protein 7.1 Albumin 4.0 Globulin 3.1 Albumin/Globulin Ratio 1.3 Triglycerides 61 D Cholesterol 129 LDL Cholesterol Direct 66 HDL Cholesterol 50 Blood Type A NEGATIVE Antibody Screen Negative Attending/Attestation - Attestation I have personally seen and examined this patient.: Yes I have fully participated in the care of the patient.: Yes I have reviewed all pertinent clinical information: Yes Notes (Text): Assessment * Left complete hemianopsia with symptoms of blurriness when looking in the front or to the left, without any other clinically obvious deficit, damage suspected in right occipital cortex, unlikely tumor/aneurysm over path of optic track/radiation. * Afib not on anticoagulation with 3rd [employer] event * Chronic venous insufficiency with leg edema and suspected tenia pedis * H/o htn Plan * MRI helen to confirm it as new finding * PT/OT * Heparin drip * Neurology consult * Podiatry consult * See orders for detail.
--- NOTE | 2017-07-12 07:13 | CP.PCM.CON ---
History of Present Illness - History of Present Illness History of Present Illness: CONSULT DICTATED LEFT h/h WITH LEFT HEMIPARESIS - RT MCA DYSFUNCTION EXCLUDED FOR tPA CRITERIA RESUME ELIQUS WITH ASA MRA DVT PROHYLAXIS PT Past Patient History - Infectious Disease Hx of Infectious Diseases: None - Tetanus Immunizations Tetanus Immunization: Unknown - Past Medical History & Family History Past Medical History?: Yes - Past Social History Smoking Status: Never Smoked - CARDIAC Hx Atrial Fibrillation: Yes Hx Cardia Arrhythmia: Yes Hx Congestive Heart Failure: Yes Hx Hypertension: Yes - NEUROLOGICAL Hx Neurological Disorder: Yes HX Cerebrovascular Accident: Yes - HEENT Hx HEENT Problems: Yes Hx Cataracts: Yes (RACHEAL) - HEMATOLOGICAL/ONCOLOGICAL Hx Cancer: Yes (treated prostate/bladder) - INTEGUMENTARY Other/Comment: skin in both lower ext hyperpigmented - MUSCULOSKELETAL/RHEUMATOLOGICAL Hx Musculoskeletal Disorders: Yes - GASTROINTESTINAL Hx Gastrointestinal Disorders: Yes Hx Gastroesophageal Reflux: Yes - GENITOURINARY/GYNECOLOGICAL Hx Genitourinary Disorders: Yes (bladder tumor removed 2010) Hx Prostate Problems: Yes - PSYCHIATRIC Hx Substance Use: No - SURGICAL HISTORY Hx Surgeries: Yes Other/Comment: pilonidal cyst removed - ANESTHESIA Hx Anesthesia: Yes Hx Anesthesia Reactions: No Meds Allergies/Adverse Reactions: Allergies Allergy/AdvReac Type Severity Reaction Status Date / Time No Known Allergies Allergy Verified 07/11/17 21:41 - Medications Medications: Current Medications Aspirin (Aspirin Chewable) 81 mg PO DAILY [facility] Clonidine HCl (Catapres) 0.1 mg PO Q8 [facility] Last Admin: 07/12/17 05:37 Dose: 0.1 mg Docusate Sodium (Colace) 100 mg PO BID PRN PRN Reason: Constipation Furosemide (Lasix) 20 mg PO HS PRN PRN Reason: Other Hydrochlorothiazide (Hydrodiuril) 25 mg PO DAILY [facility] Heparin Sodium/Sodium Chloride (Heparin 88200 Units/250ml 1/2 Normal Saline) 25 ,000 units in 250 mls @ 11.975 mls/hr IV .[id number] PRN; Protocol; 12 UNITS/KG/HR PRN Reason: PROTOCOL Last Admin: 07/12/17 02:49 Dose: 12 units/kg/hr, 11.975 mls/hr Metoprolol Succinate (Toprol Xl) 50 mg PO DAILY [facility] Rosuvastatin Calcium (Crestor) 10 mg PO HS [facility] Results - Vital Signs Recent Vital Signs: Last Vital Signs Temp 97.6 F 07/12/17 04:14 Pulse 74 07/12/17 04:14 Resp 20 07/12/17 04:14 BP 122/74 07/12/17 04:14 Pulse Ox 98 07/12/17 04:14 - Labs Result Diagrams: 07/11/17 22:53 07/11/17 22:53 Labs: Laboratory Results - last 24 hr 07/11/17 07/11/17 07/11/17 22:14 22:53 22:53 WBC 8.1 RBC 4.57 Hgb 13.3 Hct 38.6 MCV 84.5 D MCH 29.1 MCHC 34.5 RDW 15.9 H Plt Count 180 MPV 7.7 Neut % (Auto) 78.4 H Lymph % (Auto) 8.8 L [place] % (Auto) 11.0 H Eos % (Auto) 1.4 Baso % (Auto) 0.4 Neut # 6.3 Lymph # 0.7 L [place] # 0.9 H Eos # 0.1 Baso # 0.0 Neutrophils % (Manual) 83 H Lymphocytes % (Manual) 8 L Reactive Lymphs % 1 H Monocytes % (Manual) 8 Platelet Estimate Normal Anisocytosis (manual) Slight PT 13.6 H INR 1.2 APTT 32 Sodium Potassium Chloride Carbon Dioxide Anion Gap BUN Creatinine Est GFR ( Amer) Est GFR (Non-Af Amer) POC Glucose (mg/dL) 101 Random Glucose Calcium Total Bilirubin AST ALT Alkaline Phosphatase Total Creatine Kinase CK-MB (Mass) Troponin I Total Protein Albumin Globulin Albumin/Globulin Ratio Triglycerides Cholesterol LDL Cholesterol Direct HDL Cholesterol Blood Type Antibody Screen 07/11/17 07/11/17 07/12/17 22:53 23:05 02:16 WBC RBC Hgb Hct MCV MCH MCHC RDW Plt Count MPV Neut % (Auto) Lymph % (Auto) [place] % (Auto) Eos % (Auto) Baso % (Auto) Neut # Lymph # [place] # Eos # Baso # Neutrophils % (Manual) Lymphocytes % (Manual) Reactive Lymphs % Monocytes % (Manual) Platelet Estimate Anisocytosis (manual) PT INR APTT Sodium 138 Potassium 4.9 Chloride 101 Carbon Dioxide 33 H Anion Gap 9 L BUN 19 Creatinine 1.1 Est GFR ( Amer) > 60 Est GFR (Non-Af Amer) > 60 POC Glucose (mg/dL) Random Glucose 107 Calcium 8.3 L Total Bilirubin 1.4 H AST 23 ALT 33 Alkaline Phosphatase 61 Total Creatine Kinase 42 L CK-MB (Mass) 1.43 Troponin I 0.0180 0.0140 Total Protein 7.1 Albumin 4.0 Globulin 3.1 Albumin/Globulin Ratio 1.3 Triglycerides 61 D Cholesterol 129 LDL Cholesterol Direct 66 HDL Cholesterol 50 Blood Type A NEGATIVE Antibody Screen Negative
--- NOTE | 2017-07-12 08:56 | RAD ---
HISTORY: Vision change COMPARISON: 05/04/2017. FINDINGS: LUNGS: The lungs are well inflated. There is moderate pulmonary venous congestion. PLEURA: No significant pleural effusion identified, no pneumothorax apparent. CARDIOVASCULAR: There is persistent severe cardiomegaly OSSEOUS STRUCTURES: No significant abnormalities. VISUALIZED UPPER ABDOMEN: Normal. OTHER FINDINGS: None. IMPRESSION: Persistent severe cardiomegaly and moderate pulmonary venous congestion.
[2017-07-12] MEDS: Metoprolol Succinate 50 mg XL Tab PO SCH (09:50)
--- NOTE | 2017-07-12 10:17 | CP.PCM.CON ---
History of Present Illness - History of Present Illness History of Present Illness: The pt is an 82 year old man with moderately reduced LV EF, recent CVA requiring TPA. I saw the patient in rehab and told him to follow up with me a month ago, he did not come. I advised him to continue anticoagulation, which he had refused in the past, opting for aspirin 81 mg. he had his stroke on aspirin. Pt now comes in with vision loss. Pt has no history of cad documented ever. Pt has never had chf, and cxr read as moderate congestion, but pt does not report dyspnea. legs are swollen. He has lost weight. pt only has medicare and cannot afford NOAC. He was scared by TV commercials and did not want anticoagulation. Review of Systems - Review of Systems All systems: reviewed and no additional remarkable complaints except (as above.) Past Patient History - Infectious Disease Hx of Infectious Diseases: None - Tetanus Immunizations Tetanus Immunization: Unknown - Past Medical History & Family History Past Medical History?: Yes - Past Social History Smoking Status: Never Smoked - CARDIAC Hx Atrial Fibrillation: Yes Hx Cardia Arrhythmia: Yes Hx Congestive Heart Failure: Yes Hx Hypertension: Yes - NEUROLOGICAL Hx Neurological Disorder: Yes HX Cerebrovascular Accident: Yes - HEENT Hx HEENT Problems: Yes Hx Cataracts: Yes (RACHEAL) - HEMATOLOGICAL/ONCOLOGICAL Hx Cancer: Yes (treated prostate/bladder) - INTEGUMENTARY Other/Comment: skin in both lower ext hyperpigmented - MUSCULOSKELETAL/RHEUMATOLOGICAL Hx Musculoskeletal Disorders: Yes - GASTROINTESTINAL Hx Gastrointestinal Disorders: Yes Hx Gastroesophageal Reflux: Yes - GENITOURINARY/GYNECOLOGICAL Hx Genitourinary Disorders: Yes (bladder tumor removed 2010) Hx Prostate Problems: Yes - PSYCHIATRIC Hx Substance Use: No - SURGICAL HISTORY Hx Surgeries: Yes Other/Comment: pilonidal cyst removed - ANESTHESIA Hx Anesthesia: Yes Hx Anesthesia Reactions: No Meds Allergies/Adverse Reactions: Allergies Allergy/AdvReac Type Severity Reaction Status Date / Time No Known Allergies Allergy Verified 07/11/17 21:41 - Medications Medications: Current Medications Docusate Sodium (Colace) 100 mg PO BID PRN PRN Reason: Constipation Hydrochlorothiazide (Hydrodiuril) 25 mg PO DAILY [facility] Last Admin: 07/12/17 09:50 Dose: 25 mg Heparin Sodium/Sodium Chloride (Heparin 03079 Units/250ml 1/2 Normal Saline) 25 ,000 units in 250 mls @ 11.975 mls/hr IV .[id number] PRN; Protocol; 12 UNITS/KG/HR PRN Reason: PROTOCOL Last Admin: 07/12/17 02:49 Dose: 12 units/kg/hr, 11.975 mls/hr Losartan Potassium (Cozaar) 50 mg PO DAILY [facility] Metoprolol Succinate (Toprol Xl) 50 mg PO DAILY [facility] Last Admin: 07/12/17 09:50 Dose: 50 mg Rosuvastatin Calcium (Crestor) 10 mg PO HS [facility] Warfarin Sodium (Coumadin) 5 mg PO 1800 [facility] Stop: 07/12/17 18:01 Physical Exam - Constitutional Appears: No Acute Distress - ENT Exam ENT Exam: Mucous Membranes Moist - Neck Exam Neck exam: Positive for: Full Rom - Respiratory Exam Respiratory Exam: Clear to Auscultation Bilateral, NORMAL BREATHING PATTERN - Cardiovascular Exam Cardiovascular Exam: Irregular Rhythm - Exam External exam: NORMAL EXTERNAL EXAM - Extremities Exam Extremities exam: Positive for: pedal edema - Back Exam Back exam: NORMAL INSPECTION - Neurological Exam Neurological exam: Alert, Oriented x3 (Left eye vision loss) - Psychiatric Exam Psychiatric exam: Normal Affect, Normal Mood Results - Vital Signs Recent Vital Signs: Last Vital Signs Temp 97.4 F L 07/12/17 07:44 Pulse 71 07/12/17 09:49 Resp 20 07/12/17 07:44 BP 156/82 H 07/12/17 09:49 Pulse Ox 96 07/12/17 07:44 - Labs Result Diagrams: 07/11/17 22:53 07/11/17 22:53 Labs: Laboratory Results - last 24 hr 07/11/17 07/11/17 07/11/17 22:14 22:53 22:53 WBC 8.1 RBC 4.57 Hgb 13.3 Hct 38.6 MCV 84.5 D MCH 29.1 MCHC 34.5 RDW 15.9 H Plt Count 180 MPV 7.7 Neut % (Auto) 78.4 H Lymph % (Auto) 8.8 L [place] % (Auto) 11.0 H Eos % (Auto) 1.4 Baso % (Auto) 0.4 Neut # 6.3 Lymph # 0.7 L [place] # 0.9 H Eos # 0.1 Baso # 0.0 Neutrophils % (Manual) 83 H Lymphocytes % (Manual) 8 L Reactive Lymphs % 1 H Monocytes % (Manual) 8 Platelet Estimate Normal Anisocytosis (manual) Slight PT 13.6 H INR 1.2 APTT 32 Sodium Potassium Chloride Carbon Dioxide Anion Gap BUN Creatinine Est GFR ( Amer) Est GFR (Non-Af Amer) POC Glucose (mg/dL) 101 Random Glucose Hemoglobin A1c Calcium Total Bilirubin AST ALT Alkaline Phosphatase Total Creatine Kinase CK-MB (Mass) Troponin I Total Protein Albumin Globulin Albumin/Globulin Ratio Triglycerides Cholesterol LDL Cholesterol Direct HDL Cholesterol Blood Type Antibody Screen 07/11/17 07/11/17 07/11/17 22:53 22:57 23:05 WBC RBC Hgb Hct MCV MCH MCHC RDW Plt Count MPV Neut % (Auto) Lymph % (Auto) [place] % (Auto) Eos % (Auto) Baso % (Auto) Neut # Lymph # [place] # Eos # Baso # Neutrophils % (Manual) Lymphocytes % (Manual) Reactive Lymphs % Monocytes % (Manual) Platelet Estimate Anisocytosis (manual) PT INR APTT Sodium 138 Potassium 4.9 Chloride 101 Carbon Dioxide 33 H Anion Gap 9 L BUN 19 Creatinine 1.1 Est GFR ( Amer) > 60 Est GFR (Non-Af Amer) > 60 POC Glucose (mg/dL) Random Glucose 107 Hemoglobin A1c 5.3 Calcium 8.3 L Total Bilirubin 1.4 H AST 23 ALT 33 Alkaline Phosphatase 61 Total Creatine Kinase CK-MB (Mass) Troponin I 0.0180 Total Protein 7.1 Albumin 4.0 Globulin 3.1 Albumin/Globulin Ratio 1.3 Triglycerides 61 D Cholesterol 129 LDL Cholesterol Direct 66 HDL Cholesterol 50 Blood Type A NEGATIVE Antibody Screen Negative 07/12/17 02:16 WBC RBC Hgb Hct MCV MCH MCHC RDW Plt Count MPV Neut % (Auto) Lymph % (Auto) [place] % (Auto) Eos % (Auto) Baso % (Auto) Neut # Lymph # [place] # Eos # Baso # Neutrophils % (Manual) Lymphocytes % (Manual) Reactive Lymphs % Monocytes % (Manual) Platelet Estimate Anisocytosis (manual) PT INR APTT Sodium Potassium Chloride Carbon Dioxide Anion Gap BUN Creatinine Est GFR ( Amer) Est GFR (Non-Af Amer) POC Glucose (mg/dL) Random Glucose Hemoglobin A1c Calcium Total Bilirubin AST ALT Alkaline Phosphatase Total Creatine Kinase 42 L CK-MB (Mass) 1.43 Troponin I 0.0140 Total Protein Albumin Globulin Albumin/Globulin Ratio Triglycerides Cholesterol LDL Cholesterol Direct HDL Cholesterol Blood Type Antibody Screen - EKG Data EKG Interpreted by: Myself (afib, no ischemic changes, rate is controlled.) Assessment & Plan - Assessment and Plan (Free Text) Assessment: 1. Pt has had recurrent stroke due to afib. He cannot afford noac. Continue heparin iv and load warfarin. Pt agrees to warfarin and monitoring: [place] the office.. Stop asa as increased bleeding risk in elderly pt without known cad. . 2. Stop clonidine. If pt needs anti-hypertensive, it should be payam or arb as cxr showed chf.. Pt has moderately reduced lV ef and should be on one of these agents. Lungs are clear now and pt does not report dyspnea. Will review last echo again, but I recall LV dysfunction was moderate, which is his chronic baseline. 3. Pt has no known CAD.
[2017-07-12 10:23] LABS: INR 1.3
--- NOTE | 2017-07-12 11:46 | VASCLAB ---
PROCEDURE: Lower Extremity Venous Duplex Exam. HISTORY: LE Swelling PRIORS: None. TECHNIQUE: Bilateral common femoral, femoral, popliteal and posterior tibial, peroneal and great saphenous veins were evaluated. Flow was assessed with color Doppler, compressibility, assessment of phasic flow and augmentation response. Report prepared by JAYJAY Souza, RVT FINDINGS: RIGHT: 1. Common Femoral Vein: 1.1. Compressibility - Fully compressible: Thrombus - None : Flow - Phasic: Augmentation -Normal: Reflux - None. 2. Femoral Vein: 2.1. Compressibility - Fully compressible: Thrombus - None : Flow - Phasic: Augmentation -Normal: Reflux - None. 3. Popliteal Vein: 3.1. Compressibility - Partial: Thrombus - Acute : Flow - Phasic: Augmentation -Normal: Reflux - None. 4. Posterior Tibial Vein: 4.1. Compressibility - Fully compressible: Thrombus - None: Flow - Phasic: Augmentation -Normal: Reflux - None. 5. Peroneal Vein: 5.1. Compressibility - Fully compressible: Thrombus - None: Flow - Phasic: Augmentation -Normal: Reflux - None. 6. Great Saphenous Vein: 6.1. Compressibility - Fully compressible: Thrombus - None: Flow - Phasic: Augmentation - Normal: Reflux - None. LEFT: 1. Common Femoral Vein: 1.1. Compressibility - Fully compressible: Thrombus - None: Flow - Phasic: Augmentation -Normal: Reflux - None. 2. Femoral Vein: 2.1. Compressibility - Fully compressible: Thrombus - None: Flow - Phasic: Augmentation -Normal: Reflux - None. 3. Popliteal Vein: 3.1. Compressibility - Fully compressible: Thrombus - None : Flow - Phasic: Augmentation -Normal: Reflux - None. 4. Posterior Tibial Vein: 4.1. Compressibility - Fully compressible: Thrombus - None: Flow - Phasic: Augmentation -Normal: Reflux - None. 5. Peroneal Vein: 5.1. Compressibility - Fully compressible: Thrombus - None: Flow - Phasic: Augmentation -Normal: Reflux - None. 6. Great Saphenous Vein: 6.1. Compressibility - Fully compressible: Thrombus - None: Flow - Phasic: Augmentation - Normal: Reflux - Mild.2.21s OTHER FINDINGS: Right: A hypochoic structure was noted in the popliteal fossa, measuring 2.72 x 4.19 c.m., possibly a huerta's cyst. Left: None significant. IMPRESSION: Right: Partial acute deep vein thrombosis of the right popliteal vein. Findings reported to BYRON Leone. Left: No evidence of deep or superficial vein thrombosis of the left lower extremity. Valvular incompetence noted of the left great saphenous vein.
--- NOTE | 2017-07-12 12:11 | CP.PCM.PN ---
<Abel Romero - Last Filed: 07/12/17 15:02> Subjective - Date & Time of Evaluation Date of Evaluation: 07/12/17 Time of Evaluation: 08:00 - Subjective Subjective: Medicine note for Dr. Lerma Patient seen and examined at bedside. Patient complains of blurred vision in the left visual brewer. Patient denies fever, chills, headache, chest pain, dyspnea, abdominal pain, dysuria. Objective - Vital Signs/Intake and Output Vital Signs (last 24 hours): Temp Pulse Resp BP Pulse Ox 97.4 F L 75 20 180/87 H 96 07/12/17 07:44 07/12/17 11:01 07/12/17 07:44 07/12/17 11:01 07/12/17 07:44 - Medications Medications: Current Medications Docusate Sodium (Colace) 100 mg PO BID PRN PRN Reason: Constipation Furosemide (Lasix) 40 mg PO DAILY [facility] Last Admin: 07/12/17 11:01 Dose: 40 mg Hydrochlorothiazide (Hydrodiuril) 25 mg PO DAILY [facility] Last Admin: 07/12/17 09:50 Dose: 25 mg Heparin Sodium/Sodium Chloride (Heparin 60311 Units/250ml 1/2 Normal Saline) 25 ,000 units in 250 mls @ 11.975 mls/hr IV .[id number] PRN; Protocol; 12 UNITS/KG/HR PRN Reason: PROTOCOL Last Admin: 07/12/17 02:49 Dose: 12 units/kg/hr, 11.975 mls/hr Insulin Human Regular (Novolin R) 0 unit SC ACHS [facility] PRN Reason: Protocol Losartan Potassium (Cozaar) 50 mg PO DAILY [facility] Last Admin: 07/12/17 11:01 Dose: 50 mg Metoprolol Succinate (Toprol Xl) 50 mg PO DAILY [facility] Last Admin: 07/12/17 09:50 Dose: 50 mg Rosuvastatin Calcium (Crestor) 10 mg PO HS [facility] Warfarin Sodium (Coumadin) 5 mg PO 1800 [facility] Stop: 07/12/17 18:01 - Labs Labs: 07/11/17 22:53 07/11/17 22:53 PT 14.7 SECONDS (9.7-12.2) H 07/12/17 10:06 INR 1.3 07/12/17 10:06 APTT 54 SECONDS (21-34) H D 07/12/17 10:06 - Constitutional Appears: No Acute Distress - Head Exam Head Exam: ATRAUMATIC, NORMOCEPHALIC - Eye Exam Eye Exam: EOMI, PERRL - ENT Exam ENT Exam: Mucous Membranes Moist - Respiratory Exam Respiratory Exam: Clear to Ausculation Bilateral. absent: Rales, Rhonchi, Wheezes - Cardiovascular Exam Cardiovascular Exam: Irregular Rhythm, +S1, +S2 - GI/Abdominal Exam GI & Abdominal Exam: Soft, Normal Bowel Sounds. absent: Tenderness - Extremities Exam Additional comments: bilateral edema with evidence of chronic venous stasis changes - Neurological Exam Neurological Exam: Alert, Awake, Oriented x3 - Skin Skin Exam: Dry, Warm Assessment and Plan - Assessment and Plan (Free Text) Plan: Hemianopia Dr. Pennington neurology consult, help appreciated. Dr. Gomez cardiology consult, help appreciated. CT Head - No acute infarct F/u MRI without contrast Heparin Drip ASA 81 mg PO daily Warfarin 5 mg PO daily History of CVA (cerebrovascular accident) Patient had two CVA, both with TPA admin Was previously on warfarin but stopped due to bleeding s/p TURB Dr. Pennington recommended Eliquis but after speaking with Dr. Gomez, patient is amenable to Coumadin with routine follow ups F/u MRI w.o. contrast CHF (congestive heart failure) Lasix 20 PO HS HCTZ 25 PO QD Metoprolol 50 PO QD Crestor 10 PO HS ASA 81 PO QD DVT Coumadin 5 mg PO Heparin drip bridge Dr. Fan vascular surgery consulted for evaluation of IVC filter placement Leg pain Likely venous stasis vs infectious Podiatry ([facility]) F/U FILOMENA prep, treat accordingly LE Doppler given LE Swelling Diabetes Newly diagnosed with hemoglobin A1c 7.7 Regular ISS low dose for now Prophylactic measure Heart Healthy Diet mod consistent carbs Colace Case DW Dr. Florentin Romero PGY-1 <Christel Lerma V - Last Filed: 07/12/17 16:16> Objective - Vital Signs/Intake and Output Vital Signs (last 24 hours): Temp Pulse Resp BP Pulse Ox 97.4 F L 75 20 180/87 H 96 07/12/17 07:44 07/12/17 11:01 07/12/17 07:44 07/12/17 11:01 07/12/17 07:44 - Medications Medications: Current Medications Docusate Sodium (Colace) 100 mg PO BID PRN PRN Reason: Constipation Furosemide (Lasix) 40 mg PO DAILY [facility] Last Admin: 07/12/17 11:01 Dose: 40 mg Hydrochlorothiazide (Hydrodiuril) 25 mg PO DAILY [facility] Last Admin: 07/12/17 09:50 Dose: 25 mg Heparin Sodium/Sodium Chloride (Heparin 53968 Units/250ml 1/2 Normal Saline) 25 ,000 units in 250 mls @ 11.975 mls/hr IV .[id number] PRN; Protocol; 12 UNITS/KG/HR PRN Reason: PROTOCOL Last Admin: 07/12/17 02:49 Dose: 12 units/kg/hr, 11.975 mls/hr Insulin Human Regular (Novolin R) 0 unit SC ACHS [facility] PRN Reason: Protocol Losartan Potassium (Cozaar) 50 mg PO DAILY [facility] Last Admin: 07/12/17 11:01 Dose: 50 mg Metoprolol Succinate (Toprol Xl) 50 mg PO DAILY [facility] Last Admin: 07/12/17 09:50 Dose: 50 mg Rosuvastatin Calcium (Crestor) 10 mg PO HS [facility] Warfarin Sodium (Coumadin) 5 mg PO 1800 [facility] Stop: 07/12/17 18:01 - Labs Labs: 07/11/17 22:53 07/11/17 22:53 PT 14.7 SECONDS (9.7-12.2) H 07/12/17 10:06 INR 1.3 07/12/17 10:06 APTT 54 SECONDS (21-34) H D 07/12/17 10:06 Attending/Attestation - Attestation I have personally seen and examined this patient.: Yes I have fully participated in the care of the patient.: Yes I have reviewed all pertinent clinical information, including history, physical exam and plan: Yes Notes (Text): Patient seen, examined and case discussed with day-time resident. Patient seen this morning with occupational and physical therapy at bedside. Patient reports blurry vision, denies headache, denies chest pain, denies palpitations, denies shortness of breathe, denies abdominal pain, denies vomitting, denies nausea, reports bowel movement was one day ago, reports his legs are swollen but he takes a water pills for it. Discussed with neurology this morning, recommendation for Eliquis and Aspirin for recurrent stroke. Known to neurology from last admission 04/2017 wherein he received TPA for blurry vision symptoms. Patient was seen by his auto refinisher this morning, no history of documented CAD/ CHF/weight loss/cannot afford and nor wants NOAC. Cardiology will review his last echo to see if patient is at baseline or not. Started on Serafin or ARB, stopped clonidine and aspirin. Patient had epistaxis during the day, will not allow sufficent time to pinch, bleeding stopped 2pm. Repeat CBC and hold heparin drip prior to restart. Repeat head CT did not show any acute findings. Vascular surgery consult for tentative plan for IVC filter, given upper extremity DVT, possible OR tomorrow. Resident spoke with cardiology in light of new findings, per cardiac, stable for OR. Assessment/Plan 1) Left complete hemianopsia * secondary to atrial fibrillation, history of recurrent stroke, * Patient only taking Aspirin; does not want to take Eliquis * Neurology Dr. Pennington on board-->help appreciated * Recommended for Brain MRI w/o contrast * Patient has had cartoid and MRA Head/Neck in 04/2017 which was normal and unremarkable * Recommended for Eliquis and Aspirin * Cardiology Dr. Gomez on board-->help appreciated * Patient refuses to be on NOAC, he is open to being on Coumadin following conversation with cardiology this morning * Patient on Heparin drip being bridged to Coumadin Status: Acute 2) Atrial Fibrillation * CHADSVASC: 7 (CHF, HTN, Age, Diabetes, Stroke, vascular disease, age>65) * HASBLED: 2 (stroke, and age) * Patient started on Heparin drip to bridge to Coumadin; will need to reassess INR and CBC in light of epistaxis * Patient is not amenable to Eliquis, but will allow for Coumadin * History of noncompliance Status: Chronic 3) History of CVA (cerebrovascular accident) * Patient had two CVAs in recent two months, had TPA in 04/2017 hospital visit * Neurology Dr. Pennington on board-->help appreciated * Recommended for Brain MRI w/o contrast * Patient has had cartoid and MRA Head/Neck in 04/2017 which was normal and unremarkable * Recommended for Eliquis and Aspirin * Cardiology Dr. Gomez on board-->help appreciated * Patient refuses to be on NOAC, he is open to being on Coumadin following conversation with cardiology this morning * Patient on Heparin drip being bridged to Coumadin * Pending Brain MRI w/o contrast * Hgba1c: 5.3 * Lipid Panel: T, Chol: 129, LDL: 66, HDL: 50 * CT Head (07/11/17): No acute findings * CT Head (07/12/17): Stable unenhanced head CT including age-related neuro degenerative changes as discussed above, but without new interval findings. * Aspirin 325mg PO given on admission; Aspirin d/c by cardiology Status: Acute 4) Epistaxis * Patient had reported epistaxis today following start on Heparin drip * Patient reported to the resident, he was recommended for ENT eval for possible cauterization, but never followed up. * Discussed with nurse, Sulema, patient will not allowed for pressure over the bridge of the nose, bleeding stopped at 2PM. Advised to repeat CBC prior to restarting Heparin drip * Repeat CT Head (07/12/17): CT Head (07/12/17): Stable unenhanced head CT including age-related neuro degenerative changes as discussed above, but without new interval findings. * Consult ENT for epistaxis to see if needs cauterization Status: Acute 5) Possible CHF (congestive heart failure) * Per cardiology, patient does not have history of CHF, will re-eval echo given moderate congestion on chest xray with no history of documented CAD * Lasix 40mg PO daily * HCTZ 25mg PO daily * Cozaar 50mg PO daily * Topxol 50mg PO daily * Crestor 10mg POqHS * Pending echocardiogram Status: Acute 6) Deep Vein Thrombosis * Venous doppler (07/12/17): partial acute deep vein thrombosis of the right popliteal vein. No evidence of deep or superficial vein thrombosis of the left lower extremity. Valvular incompetence noted of the left great saphenous vein * Patient does not want to be on NOAC nor appears to be compliant. Patient is open to Coumadin. * Vascular surgery consult to assess need for IVC filter given above knee DVT. Status: Acute 7) Leg pain * likely secondary to venous insufficiency and deep vein thrombosis * Discussed with podiatry resident, who will eval the feet with attending to see if antibiotics are warranted. patient does not have any visible wounds nor drainage. Status: Acute 8) Diabetes * Newly diagnosed with hemoglobin A1c 7.7 * Regular ISS low dose for now * Will need to start Metformin 9) Prophylactic measure * Contraindications for SCDS secondary to DVT Right lower extremity * Pending CBC to see if drop in H/H given epistaxis * Heart Healthy Diet mod consistent carbs * Colace 100mg PO BID PRN constipation * PT/OT eval
--- NOTE | 2017-07-12 12:39 | CP.PCM.CON ---
History of Present Illness - History of Present Illness History of Present Illness: Surgical Consult: 82 year old male with past medical history of CVA x2, afib, bladder cancer, HTN , and CAD presented to the ER 07/12 for blurry vision. He states he was sitting watching TV in the evening when everything became blurry and he tried washing his face and his vision was still blurry. He states his vision is not the best he does see an eye doctor but it has never been like this. He denies having a curtain fall over his eyes. He states his vision is currently slightly blurry but with much improvement as he can now see me as I sports internship front of him and his brother. Patient states he is now having a nose bleed that started about 15 minutes ago and he states he is feeling very uncomfortable as the bleeding will not stop. He denies light headedness, headache, nausea, vomiting, dizziness, dysuria, diarrhea or constipation. He states he keeps urinating due to his water pill and his last bowel movement was yesterday. He states he was previously on a blood thinner in the past but he stopped taking it on his own. He states he did inform his service desk director who told him to continue the baby aspirin. PMD: Dr. Casper Tin Cutter: Dr. Gomez Past Medical History: bladder cancer, A. fibrillation, CVA , HTN, CAD, GERD Past Surgical History: Polyp removal on back, Partila uretertectomy, TURB Social History: Lives alone, admits to 40 years of tobacco use but quit over 30 years ago used to smoke a 1 and half per day. Drinks occasional wine with dinner. Denies illicit drug use Medications: Clonidine 0.1mg PO q8h, Lasix 20mg, HCTZ 25mg, Toprol 50mg, Crestor 10mg, Aspirin 81mg daily Allergies: NKDA Review of Systems - Constitutional Constitutional: absent: Chills, Fatigue, Fever, Headache - EENT Eyes: Blurred Vision, Change in Vision. absent: Discharge, Pain, Loss of Vision Nose/Mouth/Throat: Epistaxis. absent: Nose Pain - Cardiovascular Cardiovascular: absent: Chest Pain, Dyspnea, Palpitations - Respiratory Respiratory: absent: Dyspnea - Gastrointestinal Gastrointestinal: absent: Constipation, Diarrhea, Nausea, Vomiting - Genitourinary Genitourinary: absent: Dysuria - Neurological Neurological: absent: Dizziness, Numbness, Headaches, Tingling Past Patient History - Infectious Disease Hx of Infectious Diseases: None - Tetanus Immunizations Tetanus Immunization: Unknown - Past Medical History & Family History Past Medical History?: Yes - Past Social History Smoking Status: Never Smoked - CARDIAC Hx Atrial Fibrillation: Yes Hx Cardia Arrhythmia: Yes Hx Congestive Heart Failure: Yes Hx Hypertension: Yes - NEUROLOGICAL Hx Neurological Disorder: Yes HX Cerebrovascular Accident: Yes - HEENT Hx HEENT Problems: Yes Hx Cataracts: Yes (RACHEAL) - HEMATOLOGICAL/ONCOLOGICAL Hx Cancer: Yes (treated prostate/bladder) - INTEGUMENTARY Other/Comment: skin in both lower ext hyperpigmented - MUSCULOSKELETAL/RHEUMATOLOGICAL Hx Musculoskeletal Disorders: Yes - GASTROINTESTINAL Hx Gastrointestinal Disorders: Yes Hx Gastroesophageal Reflux: Yes - GENITOURINARY/GYNECOLOGICAL Hx Genitourinary Disorders: Yes (bladder tumor removed 2010) Hx Prostate Problems: Yes - PSYCHIATRIC Hx Substance Use: No - SURGICAL HISTORY Hx Surgeries: Yes Other/Comment: pilonidal cyst removed - ANESTHESIA Hx Anesthesia: Yes Hx Anesthesia Reactions: No Meds Allergies/Adverse Reactions: Allergies Allergy/AdvReac Type Severity Reaction Status Date / Time No Known Allergies Allergy Verified 07/11/17 21:41 - Medications Medications: Current Medications Docusate Sodium (Colace) 100 mg PO BID PRN PRN Reason: Constipation Furosemide (Lasix) 40 mg PO DAILY [facility] Last Admin: 07/12/17 11:01 Dose: 40 mg Hydrochlorothiazide (Hydrodiuril) 25 mg PO DAILY [facility] Last Admin: 07/12/17 09:50 Dose: 25 mg Heparin Sodium/Sodium Chloride (Heparin 54255 Units/250ml 1/2 Normal Saline) 25 ,000 units in 250 mls @ 11.975 mls/hr IV .[id number] PRN; Protocol; 12 UNITS/KG/HR PRN Reason: PROTOCOL Last Admin: 07/12/17 02:49 Dose: 12 units/kg/hr, 11.975 mls/hr Insulin Human Regular (Novolin R) 0 unit SC ACHS [facility] PRN Reason: Protocol Losartan Potassium (Cozaar) 50 mg PO DAILY [facility] Last Admin: 07/12/17 11:01 Dose: 50 mg Metoprolol Succinate (Toprol Xl) 50 mg PO DAILY [facility] Last Admin: 07/12/17 09:50 Dose: 50 mg Rosuvastatin Calcium (Crestor) 10 mg PO HS [facility] Warfarin Sodium (Coumadin) 5 mg PO 1800 [facility] Stop: 07/12/17 18:01 Physical Exam - Constitutional Appears: In Acute Distress - Head Exam Head Exam: ATRAUMATIC, NORMAL INSPECTION - Eye Exam Eye Exam: EOMI, Normal appearance - ENT Exam ENT Exam: Mucous Membranes Moist Additional comments: Nasal bleeding out of left nostril - Respiratory Exam Respiratory Exam: NORMAL BREATHING PATTERN. absent: Accessory Muscle Use - Cardiovascular Exam Cardiovascular Exam: Irregular Rhythm, +S1, +S2 - GI/Abdominal Exam GI & Abdominal Exam: Normal Bowel Sounds, Soft. absent: Tenderness - Extremities Exam Extremities exam: Positive for: pedal edema, pedal pulses present (pedal pulses present with doppler bilateral ). Negative for: calf tenderness, tenderness - Neurological Exam Neurological exam: Alert, Oriented x3 - Psychiatric Exam Psychiatric exam: Normal Affect, Normal Mood - Skin Skin Exam: Dry, Erythema, Intact, Warm Results - Vital Signs Recent Vital Signs: Last Vital Signs Temp 97.4 F L 07/12/17 07:44 Pulse 75 07/12/17 11:01 Resp 20 07/12/17 07:44 BP 180/87 H 07/12/17 11:01 Pulse Ox 96 07/12/17 07:44 - Labs Result Diagrams: 07/11/17 22:53 07/11/17 22:53 Labs: Laboratory Results - last 24 hr 07/11/17 07/11/17 07/11/17 22:14 22:53 22:53 WBC 8.1 RBC 4.57 Hgb 13.3 Hct 38.6 MCV 84.5 D MCH 29.1 MCHC 34.5 RDW 15.9 H Plt Count 180 MPV 7.7 Neut % (Auto) 78.4 H Lymph % (Auto) 8.8 L [place] % (Auto) 11.0 H Eos % (Auto) 1.4 Baso % (Auto) 0.4 Neut # 6.3 Lymph # 0.7 L [place] # 0.9 H Eos # 0.1 Baso # 0.0 Neutrophils % (Manual) 83 H Lymphocytes % (Manual) 8 L Reactive Lymphs % 1 H Monocytes % (Manual) 8 Platelet Estimate Normal Anisocytosis (manual) Slight PT 13.6 H INR 1.2 APTT 32 Sodium Potassium Chloride Carbon Dioxide Anion Gap BUN Creatinine Est GFR ( Amer) Est GFR (Non-Af Amer) POC Glucose (mg/dL) 101 Random Glucose Hemoglobin A1c Calcium Total Bilirubin AST ALT Alkaline Phosphatase Total Creatine Kinase CK-MB (Mass) Troponin I Total Protein Albumin Globulin Albumin/Globulin Ratio Triglycerides Cholesterol LDL Cholesterol Direct HDL Cholesterol Blood Type Antibody Screen 07/11/17 07/11/17 07/11/17 22:53 22:57 23:05 WBC RBC Hgb Hct MCV MCH MCHC RDW Plt Count MPV Neut % (Auto) Lymph % (Auto) [place] % (Auto) Eos % (Auto) Baso % (Auto) Neut # Lymph # [place] # Eos # Baso # Neutrophils % (Manual) Lymphocytes % (Manual) Reactive Lymphs % Monocytes % (Manual) Platelet Estimate Anisocytosis (manual) PT INR APTT Sodium 138 Potassium 4.9 Chloride 101 Carbon Dioxide 33 H Anion Gap 9 L BUN 19 Creatinine 1.1 Est GFR ( Amer) > 60 Est GFR (Non-Af Amer) > 60 POC Glucose (mg/dL) Random Glucose 107 Hemoglobin A1c 5.3 Calcium 8.3 L Total Bilirubin 1.4 H AST 23 ALT 33 Alkaline Phosphatase 61 Total Creatine Kinase CK-MB (Mass) Troponin I 0.0180 Total Protein 7.1 Albumin 4.0 Globulin 3.1 Albumin/Globulin Ratio 1.3 Triglycerides 61 D Cholesterol 129 LDL Cholesterol Direct 66 HDL Cholesterol 50 Blood Type A NEGATIVE Antibody Screen Negative 07/12/17 07/12/17 02:16 10:06 WBC RBC Hgb Hct MCV MCH MCHC RDW Plt Count MPV Neut % (Auto) Lymph % (Auto) [place] % (Auto) Eos % (Auto) Baso % (Auto) Neut # Lymph # [place] # Eos # Baso # Neutrophils % (Manual) Lymphocytes % (Manual) Reactive Lymphs % Monocytes % (Manual) Platelet Estimate Anisocytosis (manual) PT 14.7 H INR 1.3 APTT 54 H D Sodium Potassium Chloride Carbon Dioxide Anion Gap BUN Creatinine Est GFR ( Amer) Est GFR (Non-Af Amer) POC Glucose (mg/dL) Random Glucose Hemoglobin A1c Calcium Total Bilirubin AST ALT Alkaline Phosphatase Total Creatine Kinase 42 L CK-MB (Mass) 1.43 Troponin I 0.0140 Total Protein Albumin Globulin Albumin/Globulin Ratio Triglycerides Cholesterol LDL Cholesterol Direct HDL Cholesterol Blood Type Antibody Screen Assessment & Plan - Assessment and Plan (Free Text) Assessment: 82 year old male with past medical history of CVA x2, afib, bladder cancer, HTN , and CAD presented to the ER 07/12 for blurry vision. DVT - Lower Extremity Venous Duplex: Partial acute DVT of the right popliteal vein. - Coumadin 5 mg PO - Heparin drip bridge - Dr. Fan vascular surgery consulted: * IVC filter placement 07/13 * NPO after midnight Epistaxis secondary to medications - Coumadin 5 mg PO - Heparin drip bridge - Head CT w/o contrast (07/12): Stable unenhanced head CT including age-related neuro degenerative changes. Without new interval findings - Epistaxis has resolved Fadumo Bautista PGY-1
--- NOTE | 2017-07-12 13:21 | CT ---
PROCEDURE: CT HEAD WITHOUT CONTRAST. HISTORY: r/o hemorrhagic conversion COMPARISON: Unenhanced head CT 07/11/2017. TECHNIQUE: Axial computed tomography images were obtained through the head/brain without intravenous contrast. Radiation dose: Total exam DLP = 942.35 mGy-cm. This CT exam was performed using one or more of the following dose reduction techniques: Automated exposure control, adjustment of the mA and/or kV according to patient size, and/or use of iterative reconstruction technique. FINDINGS: HEMORRHAGE: No intracranial hemorrhage. BRAIN: Good corticomedullary differentiation is seen. Reiterated of diffuse cerebral atrophy and chronic microangiopathy. No suspicious extra-axial fluid collection is identified and the midline brain anatomy appears grossly nonfocal as imaged. 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 VENTRICLES: Unremarkable. No hydrocephalus. CALVARIUM: Unremarkable. PARANASAL SINUSES: Multifocal ethmoid sinusitis again evident. An MASTOID AIR CELLS: Unremarkable as visualized. No inflammatory changes. OTHER FINDINGS: None. IMPRESSION: Stable unenhanced head CT including age-related neuro degenerative changes as discussed above, which are reiterated, but without new interval findings. MRI can be utilized for follow-up or CT as clinically warranted.
[2017-07-12 16:12] LABS: BASO % 0.6 % (0.0-2.0); EOS # 0.1 K/uL (0.0-0.7); EOS % 0.8 % (0.0-4.0); HEMATOCRIT 39.1 % (35.0-51.0); LYMPH # 0.8 K/uL (1.0-4.3); LYMPH % 11.6 % (20.0-40.0); MEAN CORPUSCULAR HGB CONC 34.5 g/dL (33.0-37.0); MEAN PLATELET VOLUME 7.5 fL (7.2-11.7); MONO # 0.9 K/uL (0.0-0.8); MONO % 13.4 % (0.0-10.0); NRBC % 0.1 % (0.0-2.0); RED CELL DISTRIBUTION WIDTH 15.9 % (11.5-14.5); WHITE BLOOD COUNT 6.9 K/uL (4.8-10.8)
--- NOTE | 2017-07-12 16:51 | CP.PCM.CON ---
History of Present Illness - History of Present Illness History of Present Illness: Podiatry Consult note for Dr. Hatch 82 year old male with PMHx CVA x2, afib, bladder cancer, HTN, GERD, and CAD including was seen at bedside regarding discolored, edematous legs. Patient states that his legs are usually large and get smaller when he takes water pills , but dislikes the side effect of frequent urination. He currently denies any pain to his legs. Denies any n/v/f/c/sob/cp, but admits that he cannot see anything as his vision is blurry. Past Patient History - Infectious Disease Hx of Infectious Diseases: None - Tetanus Immunizations Tetanus Immunization: Unknown - Past Medical History & Family History Past Medical History?: Yes - Past Social History Smoking Status: Never Smoked - CARDIAC Hx Atrial Fibrillation: Yes Hx Cardia Arrhythmia: Yes Hx Congestive Heart Failure: Yes Hx Hypertension: Yes - NEUROLOGICAL Hx Neurological Disorder: Yes HX Cerebrovascular Accident: Yes - HEENT Hx HEENT Problems: Yes Hx Cataracts: Yes (RACHEAL) - HEMATOLOGICAL/ONCOLOGICAL Hx Cancer: Yes (treated prostate/bladder) - INTEGUMENTARY Other/Comment: skin in both lower ext hyperpigmented - MUSCULOSKELETAL/RHEUMATOLOGICAL Hx Musculoskeletal Disorders: Yes - GASTROINTESTINAL Hx Gastrointestinal Disorders: Yes Hx Gastroesophageal Reflux: Yes - GENITOURINARY/GYNECOLOGICAL Hx Genitourinary Disorders: Yes (bladder tumor removed 2010) Hx Prostate Problems: Yes - PSYCHIATRIC Hx Substance Use: No - SURGICAL HISTORY Hx Surgeries: Yes Other/Comment: pilonidal cyst removed - ANESTHESIA Hx Anesthesia: Yes Hx Anesthesia Reactions: No Meds Allergies/Adverse Reactions: Allergies Allergy/AdvReac Type Severity Reaction Status Date / Time No Known Allergies Allergy Verified 07/11/17 21:41 - Medications Medications: Current Medications Desoximetasone (Topicort 0.25%) 1 ea TOP BID [facility] Docusate Sodium (Colace) 100 mg PO BID PRN PRN Reason: Constipation Furosemide (Lasix) 40 mg PO DAILY [facility] Last Admin: 07/12/17 11:01 Dose: 40 mg Hydrochlorothiazide (Hydrodiuril) 25 mg PO DAILY [facility] Last Admin: 07/12/17 09:50 Dose: 25 mg Heparin Sodium/Sodium Chloride (Heparin 02578 Units/250ml 1/2 Normal Saline) 25 ,000 units in 250 mls @ 11.975 mls/hr IV .[id number] PRN; Protocol; 12 UNITS/KG/HR PRN Reason: PROTOCOL Last Admin: 07/12/17 02:49 Dose: 12 units/kg/hr, 11.975 mls/hr Insulin Human Regular (Novolin R) 0 unit SC ACHS [facility] PRN Reason: Protocol Lactic Acid (Lac-Hydrin 12% Lotion (225 G)) 2 gm EXT BID [facility] Losartan Potassium (Cozaar) 50 mg PO DAILY [facility] Last Admin: 07/12/17 11:01 Dose: 50 mg Metoprolol Succinate (Toprol Xl) 50 mg PO DAILY [facility] Last Admin: 07/12/17 09:50 Dose: 50 mg Rosuvastatin Calcium (Crestor) 10 mg PO HS [facility] Warfarin Sodium (Coumadin) 5 mg PO 1800 [facility] Stop: 07/12/17 18:01 Physical Exam - Constitutional Appears: Non-toxic, No Acute Distress - Extremities Exam Additional comments: Lower extremity focused exam: Vasc: DP and PT pulses non-palpable due to pitting edema. Skin temperature warm to warm from proximal to distal, symmetric b/l. CFT > 3 seconds to all digits. Neuro: Gross sensation intact Ortho:No tenderness on compression of calf b/l. Derm: Nails are thickened, elongated, dystrophic 1-10. Webspaces are clean, dry, intact. No open wounds noted. Legs from tibial tuberosity to medial malleolus circumferentally are red and dry. - Neurological Exam Neurological exam: Alert, Oriented x3 - Psychiatric Exam Psychiatric exam: Normal Affect, Normal Mood Results - Vital Signs Recent Vital Signs: Last Vital Signs Temp 97.4 F L 07/12/17 07:44 Pulse 75 07/12/17 11:01 Resp 20 07/12/17 07:44 BP 180/87 H 07/12/17 11:01 Pulse Ox 96 07/12/17 07:44 - Labs Result Diagrams: 07/12/17 16:07 07/11/17 22:53 Labs: Laboratory Results - last 24 hr 07/11/17 07/11/17 07/11/17 22:14 22:53 22:53 WBC 8.1 RBC 4.57 Hgb 13.3 Hct 38.6 MCV 84.5 D MCH 29.1 MCHC 34.5 RDW 15.9 H Plt Count 180 MPV 7.7 Neut % (Auto) 78.4 H Lymph % (Auto) 8.8 L Todd % (Auto) 11.0 H Eos % (Auto) 1.4 Baso % (Auto) 0.4 Neut # 6.3 Lymph # 0.7 L Todd # 0.9 H Eos # 0.1 Baso # 0.0 Neutrophils % (Manual) 83 H Lymphocytes % (Manual) 8 L Reactive Lymphs % 1 H Monocytes % (Manual) 8 Platelet Estimate Normal Anisocytosis (manual) Slight PT 13.6 H INR 1.2 APTT 32 Sodium Potassium Chloride Carbon Dioxide Anion Gap BUN Creatinine Est GFR ( Amer) Est GFR (Non-Af Amer) POC Glucose (mg/dL) 101 Random Glucose Hemoglobin A1c Calcium Total Bilirubin AST ALT Alkaline Phosphatase Total Creatine Kinase CK-MB (Mass) Troponin I Total Protein Albumin Globulin Albumin/Globulin Ratio Triglycerides Cholesterol LDL Cholesterol Direct HDL Cholesterol Blood Type Antibody Screen 07/11/17 07/11/17 07/11/17 22:53 22:57 23:05 WBC RBC Hgb Hct MCV MCH MCHC RDW Plt Count MPV Neut % (Auto) Lymph % (Auto) Todd % (Auto) Eos % (Auto) Baso % (Auto) Neut # Lymph # Todd # Eos # Baso # Neutrophils % (Manual) Lymphocytes % (Manual) Reactive Lymphs % Monocytes % (Manual) Platelet Estimate Anisocytosis (manual) PT INR APTT Sodium 138 Potassium 4.9 Chloride 101 Carbon Dioxide 33 H Anion Gap 9 L BUN 19 Creatinine 1.1 Est GFR ( Amer) > 60 Est GFR (Non-Af Amer) > 60 POC Glucose (mg/dL) Random Glucose 107 Hemoglobin A1c 5.3 Calcium 8.3 L Total Bilirubin 1.4 H AST 23 ALT 33 Alkaline Phosphatase 61 Total Creatine Kinase CK-MB (Mass) Troponin I 0.0180 Total Protein 7.1 Albumin 4.0 Globulin 3.1 Albumin/Globulin Ratio 1.3 Triglycerides 61 D Cholesterol 129 LDL Cholesterol Direct 66 HDL Cholesterol 50 Blood Type A NEGATIVE Antibody Screen Negative 07/12/17 07/12/17 07/12/17 02:16 10:06 16:07 WBC 6.9 RBC 4.66 Hgb 13.5 Hct 39.1 MCV 84.0 MCH 29.0 MCHC 34.5 RDW 15.9 H Plt Count 191 MPV 7.5 Neut % (Auto) 73.6 Lymph % (Auto) 11.6 L Todd % (Auto) 13.4 H Eos % (Auto) 0.8 Baso % (Auto) 0.6 Neut # 5.1 Lymph # 0.8 L Todd # 0.9 H Eos # 0.1 Baso # 0.0 Neutrophils % (Manual) Lymphocytes % (Manual) Reactive Lymphs % Monocytes % (Manual) Platelet Estimate Anisocytosis (manual) PT 14.7 H INR 1.3 APTT 54 H D Sodium Potassium Chloride Carbon Dioxide Anion Gap BUN Creatinine Est GFR ( Amer) Est GFR (Non-Af Amer) POC Glucose (mg/dL) Random Glucose Hemoglobin A1c Calcium Total Bilirubin AST ALT Alkaline Phosphatase Total Creatine Kinase 42 L CK-MB (Mass) 1.43 Troponin I 0.0140 Total Protein Albumin Globulin Albumin/Globulin Ratio Triglycerides Cholesterol LDL Cholesterol Direct HDL Cholesterol Blood Type Antibody Screen Assessment & Plan - Assessment and Plan (Free Text) Assessment: 82 year old male with venous stasis b/l lower extremity Plan: patient examined and evaluated with attending Dr. Hatch lab, chart, vitals reviewed LE Venous duplex showed partial acute DVT of the right popliteal vein Lac-hydrin and topicort to be applied to b/l LE daily ancef 1 g Q8 h podiatry will continue to follow patient while in house
[2017-07-12] MEDS: (Novolin R) Insulin Human Regular 100 units/ml vial SC SCH ×2 (17:00→22:08)
[2017-07-12] MEDS: Desoximetasone 0.25% Cream(15 gm) TOP SCH (18:00)
[2017-07-12] MEDS: Ammonium Lactate 12% Lotion (225 g) EXT SCH (18:00)
[2017-07-12] MEDS: CEFAZOLIN IVPB SCH (18:57)
[2017-07-12] MEDS: WATER IVPB SCH (18:57)
[2017-07-12] MEDS: DEXTROSE 5% IVPB SCH (18:57)
--- NOTE | 2017-07-12 22:12 | CARD ---
APPROVED REPORT EKG Measurement Heart [id number] <Conclusion> Atrial fibrillation Incomplete right bundle branch block Abnormal ECG
--- NOTE | 2017-07-13 00:56 | CP.PCM.PN ---
Subjective - Date & Time of Evaluation Date of Evaluation: 07/13/17 Time of Evaluation: 00:53 - Subjective Subjective: Second CT reviewed by me as follow up on patient's care, shows newly developed hypodense area in right occipital lobe which would correspond to patient's symptoms of left hemianopsia, would be discussed with primary team, neurology and radiology. Objective - Vital Signs/Intake and Output Vital Signs (last 24 hours): Temp Pulse Resp BP Pulse Ox 98.4 F 71 20 145/78 96 07/12/17 17:18 07/12/17 17:18 07/12/17 17:18 07/12/17 17:18 07/12/17 17:18 Intake and Output: 07/12/17 07/13/17 18:59 06:59 Intake Total 432 Balance 432 - Medications Medications: Current Medications Acetaminophen (Tylenol 325mg Tab) 650 mg PO Q6 PRN PRN Reason: Pain, moderate (4-7) Last Admin: 07/12/17 19:07 Dose: 650 mg Desoximetasone (Topicort 0.25%) 0 ea TOP BID [facility] Last Admin: 07/12/17 18:00 Dose: Not Given Docusate Sodium (Colace) 100 mg PO BID PRN PRN Reason: Constipation Furosemide (Lasix) 40 mg PO DAILY [facility] Last Admin: 07/12/17 11:01 Dose: 40 mg Hydrochlorothiazide (Hydrodiuril) 25 mg PO DAILY [facility] Last Admin: 07/12/17 09:50 Dose: 25 mg Heparin Sodium/Sodium Chloride (Heparin 47738 Units/250ml 1/2 Normal Saline) 25 ,000 units in 250 mls @ 11.975 mls/hr IV .[id number] PRN; Protocol; 12 UNITS/KG/HR PRN Reason: PROTOCOL Last Admin: 07/12/17 02:49 Dose: 12 units/kg/hr, 11.975 mls/hr Cefazolin Sodium 1,000 mg/ (Dextrose) 100 mls @ 100 mls/hr IVPB Q8H [facility] Last Admin: 07/12/17 18:57 Dose: 100 mls/hr Insulin Human Regular (Novolin R) 0 unit SC ACHS [facility] PRN Reason: Protocol Last Admin: 07/12/17 22:08 Dose: Not Given Lactic Acid (Lac-Hydrin 12% Lotion (225 G)) 2 gm EXT BID [facility] Last Admin: 07/12/17 18:00 Dose: Not Given Losartan Potassium (Cozaar) 50 mg PO DAILY [facility] Last Admin: 07/12/17 11:01 Dose: 50 mg Metoprolol Succinate (Toprol Xl) 50 mg PO DAILY [facility] Last Admin: 07/12/17 09:50 Dose: 50 mg Rosuvastatin Calcium (Crestor) 10 mg PO HS [facility] Last Admin: 07/12/17 21:45 Dose: 10 mg - Labs Labs: 07/12/17 16:07 07/11/17 22:53 PT 14.7 SECONDS (9.7-12.2) H 07/12/17 10:06 INR 1.3 07/12/17 10:06 APTT 54 SECONDS (21-34) H D 07/12/17 10:06
[2017-07-13] MEDS ORDERED: WATER IVPB SCH (02:00)
[2017-07-13] MEDS ORDERED: CEFAZOLIN IVPB SCH (02:00)
[2017-07-13] MEDS ORDERED: DEXTROSE 5% IVPB SCH (02:00)
[2017-07-13] MEDS: CEFAZOLIN IVPB SCH (02:01)
[2017-07-13] MEDS: DEXTROSE 5% IVPB SCH (02:01)
[2017-07-13] MEDS: WATER IVPB SCH (02:01)
[2017-07-13 06:39] LABS: BASO % 0.5 % (0.0-2.0); EOS # 0.1 K/uL (0.0-0.7); HEMATOCRIT 36.9 % (35.0-51.0); LYMPH # 0.6 K/uL (1.0-4.3); LYMPH % 11.5 % (20.0-40.0); MEAN CELL VOLUME 83.6 fL (80.0-94.0); MEAN CORPUSCULAR HEMOGLOBIN 28.9 pg (27.0-31.0); MEAN CORPUSCULAR HGB CONC 34.5 g/dL (33.0-37.0); MEAN PLATELET VOLUME 7.9 fL (7.2-11.7); MONO # 0.7 K/uL (0.0-0.8); MONO % 13.8 % (0.0-10.0); NRBC % 0.1 % (0.0-2.0); RED CELL DISTRIBUTION WIDTH 15.7 % (11.5-14.5); WHITE BLOOD COUNT 5.3 K/uL (4.8-10.8)
[2017-07-13 06:59] LABS: ALB/GLOB RATIO 1.2 (1.0-2.1); ALKALINE PHOSPHATASE 58 U/L (38-126); ALT/SGPT 11 U/L (21-72); AST/SGOT 30 U/L (17-59); BILIRUBIN,TOTAL 1.6 mg/dL (0.2-1.3); BLOOD UREA NITROGEN 16 mg/dL (9-20); CALCIUM 7.8 mg/dl (8.6-10.4); CARBON DIOXIDE 32 mmol/L (22-30); CHLORIDE 97 mmol/L (98-107); GFR AFRICAN-AMERICAN > 60; GLUCOSE,RANDOM 96 mg/dL (75-110); POTASSIUM 3.6 mmol/L (3.6-5.2); SODIUM 134 mmol/L (132-148); TOTAL PROTEIN 6.2 g/dL (6.3-8.3)
--- NOTE | 2017-07-13 07:12 | CP.PCM.PN ---
<Abel Romero - Last Filed: 07/13/17 16:11> Subjective - Date & Time of Evaluation Date of Evaluation: 07/13/17 Time of Evaluation: 07:10 - Subjective Subjective: Medicine note for Dr. Lerma Patient seen and examined at bedside. Patient states that his vision is improving but is still blurry. Patient states that he is feeling a bit depressed about his current visual impairment. Patient denies fever, chills, chest pain, dyspnea, abdominal pain, dysuria. Objective - Vital Signs/Intake and Output Vital Signs (last 24 hours): Temp Pulse Resp BP Pulse Ox 97.2 F L 99 H 20 132/95 H 96 07/13/17 04:05 07/13/17 04:05 07/13/17 04:05 07/13/17 04:05 07/13/17 04:05 Intake and Output: 07/13/17 07/13/17 06:59 18:59 Intake Total 195.2 Output Total 650 Balance -454.8 - Medications Medications: Current Medications Acetaminophen (Tylenol 325mg Tab) 650 mg PO Q6 PRN PRN Reason: Pain, moderate (4-7) Last Admin: 07/13/17 01:07 Dose: 650 mg Desoximetasone (Topicort 0.25%) 0 ea TOP BID [facility] Last Admin: 07/12/17 18:00 Dose: Not Given Docusate Sodium (Colace) 100 mg PO BID PRN PRN Reason: Constipation Furosemide (Lasix) 40 mg PO DAILY [facility] Last Admin: 07/12/17 11:01 Dose: 40 mg Hydrochlorothiazide (Hydrodiuril) 25 mg PO DAILY [facility] Last Admin: 07/12/17 09:50 Dose: 25 mg Heparin Sodium/Sodium Chloride (Heparin 39439 Units/250ml 1/2 Normal Saline) 25 ,000 units in 250 mls @ 11.975 mls/hr IV .[id number] PRN; Protocol; 12 UNITS/KG/HR PRN Reason: PROTOCOL Last Admin: 07/12/17 02:49 Dose: 12 units/kg/hr, 11.975 mls/hr Cefazolin Sodium 1,000 mg/ (Dextrose) 100 mls @ 100 mls/hr IVPB Q8H [facility] Last Admin: 07/13/17 02:01 Dose: 100 mls/hr Insulin Human Regular (Novolin R) 0 unit SC ACHS [facility] PRN Reason: Protocol Last Admin: 07/12/17 22:08 Dose: Not Given Lactic Acid (Lac-Hydrin 12% Lotion (225 G)) 2 gm EXT BID [facility] Last Admin: 07/12/17 18:00 Dose: Not Given Losartan Potassium (Cozaar) 50 mg PO DAILY [facility] Last Admin: 07/12/17 11:01 Dose: 50 mg Metoprolol Succinate (Toprol Xl) 50 mg PO DAILY [facility] Last Admin: 07/12/17 09:50 Dose: 50 mg Rosuvastatin Calcium (Crestor) 10 mg PO HS [facility] Last Admin: 07/12/17 21:45 Dose: 10 mg - Labs Labs: 07/13/17 06:23 07/13/17 06:23 PT 14.7 SECONDS (9.7-12.2) H 07/12/17 10:06 INR 1.3 07/12/17 10:06 APTT 54 SECONDS (21-34) H 07/13/17 01:31 - Constitutional Appears: No Acute Distress - Head Exam Head Exam: ATRAUMATIC, NORMOCEPHALIC - Eye Exam Eye Exam: EOMI, PERRL - ENT Exam ENT Exam: Mucous Membranes Moist - Respiratory Exam Respiratory Exam: Clear to Ausculation Bilateral. absent: Rales, Rhonchi, Wheezes - Cardiovascular Exam Cardiovascular Exam: Irregular Rhythm, +S1, +S2 - GI/Abdominal Exam GI & Abdominal Exam: Soft, Normal Bowel Sounds. absent: Tenderness - Extremities Exam Additional comments: bilateral edema with evidence of chronic venous stasis changes - Neurological Exam Neurological Exam: Alert, Awake, Oriented x3 - Skin Skin Exam: Dry, Warm Assessment and Plan - Assessment and Plan (Free Text) Plan: Hemianopia Dr. Pennington neurology consult, help appreciated. Dr. Gomez cardiology consult, help appreciated. CT Head - No acute infarct Repeat Head CT on 07/12 demonstrated no hemorrhagic conversion Third repeat Head CT on 07/13 (ordered due to new onset headache in light of current sequelae) demonstrates confirmation of ischemic TELEPHONE SOLICITOR territory infarct. F/u MRI brain w.o. contrast Heparin Drip ASA 81 mg PO daily Warfarin 5 mg PO daily History of CVA (cerebrovascular accident) Patient had two CVA, both with TPA admin No TPA for this current CVA since it met criteria for contraindication Was previously on warfarin but stopped due to bleeding s/p TURB Dr. Pennington recommended Eliquis but after speaking with Dr. Gomez, patient is amenable to Coumadin with routine follow ups F/u MRI w.o. contrast Crestor 10 PO HS ASA 81 PO QD Hypertension Lasix 20 PO HS HCTZ 25 PO QD Metoprolol 50 PO QD Atrial Fibrillation Rate controlled Metoprolol 50 mg PO QD Anti-coagulated with Warfarin 5 mg PO bridged with heparin drip DVT Coumadin 5 mg PO Heparin drip bridge Dr. Fan vascular surgery consulted for evaluation of IVC filter placement Patient is for OR later this afternoon for IVC filter given his history of poor compliance History of epistaxis ENT Dr. Valdez consulted, help appreciated Per Dr. Valdez, outpatient follow up since patient is not actively bleeding Leg pain Likely venous stasis vs infectious Podiatry ([facility]) Ancef 1 gm Q8H Lac-Hydrin emollient and topical steroid Diabetes Newly diagnosed with hemoglobin A1c 7.7 Regular ISS low dose for now Prophylactic measure Heart Healthy Diet mod consistent carbs Colace Please note that this patient does NOT have CHF. Upon review of the previous echocardiogram on 05/04/17, patient does not have left ventricle dysfunction. This was confirmed with the director of cardiology by the primary attending. Case DW Dr. Florentin Romero PGY-1 <Christel Lerma V - Last Filed: 07/13/17 19:48> Objective - Vital Signs/Intake and Output Vital Signs (last 24 hours): Temp Pulse Resp BP Pulse Ox 98.1 F 83 20 159/92 H 96 07/13/17 17:13 07/13/17 17:13 07/13/17 17:13 07/13/17 17:13 07/13/17 17:13 Intake and Output: 07/13/17 07/14/17 18:59 06:59 Intake Total 50 Output Total 800 Balance -750 - Medications Medications: Current Medications Acetaminophen (Tylenol 325mg Tab) 650 mg PO Q6 PRN PRN Reason: Pain, moderate (4-7) Last Admin: 07/13/17 19:00 Dose: 650 mg Desoximetasone (Topicort 0.25%) 0 ea TOP BID [facility] Last Admin: 07/13/17 17:43 Dose: 1 appl Docusate Sodium (Colace) 100 mg PO BID PRN PRN Reason: Constipation Furosemide (Lasix) 40 mg PO DAILY [facility] Last Admin: 07/13/17 09:41 Dose: 40 mg Hydrochlorothiazide (Hydrodiuril) 25 mg PO DAILY [facility] Last Admin: 07/13/17 09:41 Dose: 25 mg Heparin Sodium/Sodium Chloride (Heparin 14769 Units/250ml 1/2 Normal Saline) 25 ,000 units in 250 mls @ 11.376 mls/hr IV .[id number] PRN; Protocol; 12 UNITS/KG/HR PRN Reason: ADJUST RATE PER PROTOCOL Cefazolin Sodium 1,000 mg/ (Dextrose) 100 mls @ 100 mls/hr IVPB Q8H [facility] Sodium Chloride (Sodium Chloride 0.9%) 1,000 mls @ 50 mls/hr IV .Q20H [facility] Last Admin: 07/13/17 17:43 Dose: 50 mls/hr Insulin Human Regular (Novolin R) 0 unit SC ACHS [facility] PRN Reason: Protocol Last Admin: 07/13/17 17:43 Dose: Not Given Lactic Acid (Lac-Hydrin 12% Lotion (225 G)) 2 gm EXT BID [facility] Last Admin: 07/13/17 17:43 Dose: 1 applic Losartan Potassium (Cozaar) 50 mg PO DAILY [facility] Last Admin: 07/13/17 09:41 Dose: 50 mg Metoprolol Succinate (Toprol Xl) 50 mg PO DAILY [facility] Last Admin: 07/13/17 09:41 Dose: 50 mg Rosuvastatin Calcium (Crestor) 10 mg PO HS [facility] Last Admin: 07/12/17 21:45 Dose: 10 mg Warfarin Sodium (Coumadin) 5 mg PO ONCE ONE Stop: 07/13/17 22:01 - Labs Labs: 07/13/17 06:23 07/13/17 06:23 PT 14.7 SECONDS (9.7-12.2) H 07/12/17 10:06 INR 1.3 07/12/17 10:06 APTT 54 SECONDS (21-34) H 07/13/17 01:31 Attending/Attestation - Attestation I have personally seen and examined this patient.: Yes I have fully participated in the care of the patient.: Yes I have reviewed all pertinent clinical information, including history, physical exam and plan: Yes Notes (Text): patient seen, examined and case discussed with daytime resident. Patient seen this morning at 9:22AM. Patient reports headache overnight. Discussed with neurology, this morning, recommends for Eliquis, Pradaza, or Xarelto given the nature of patient's stroke with possible imvolvement of MCA. Neurology is aware patient does not want to be on NOAC. Discussed with cardiology, patient's insurance does not cover Eliquis or alternatives. Also, reports does not need additional echo, patient does not have CHF. Recommends for Coumadin for anticoagulation for atrial fibrillation. Discussed with ENT, saw patient this morning, no nasal bleeding seen nor needed to be packed, stable from ENT, recommended follow-up with him as outpatient. Discussed with the patient at bedside, given conversations with both specialists , patient understands he is at recurrent stroke given he has abnormal heart rhythm which cause clots to cause further stroke. Patient reports fears about bleeding given prior history of hemorrhagic cystitis/hematuria. Patient re- emphasizes with me this morning he does not want to be on any Eliquis or alternatives similar to Eliquis. He has been on Coumadin in the past and prefers to be on Coumadin. Patient had refused Brain MRI yesterday, but will allow for Brain MRI today. Patient had 3rd CT head scan given his ambivalence regarding the MRI, patient has confirmed infarction involving TELEPHONE SOLICITOR/occipital lobe. Patient completed Brain MRI which confirms stroke and no hemorrhagic conversion; patient nervous prior to MRI, given Ativan 0.5mg IV X1 given his anxiety. Patient is also reports his vision is still affected. Patient strongly advised he should not drive following hospitalization and discussed with cardiology as well who also affirms this. Patient went to IVC filter today, given his history of acute DVT, and prior noncompliance with Eliquis and unclear if he will be compliant with Coumadin. Assessment/Plan 1) Left complete hemianopsia * secondary to atrial fibrillation, history of recurrent stroke, * Patient only taking Aspirin; does not want to take Eliquis * Neurology Dr. Pennington on board-->help appreciated * Recommended for Brain MRI w/o contrast * Patient has had cartoid and MRA Head/Neck in 04/2017 which was normal and unremarkable * Recommended for Eliquis and Aspirin * Patient refuses NOAC and affirmed today again * Cardiology Dr. Gomez on board-->help appreciated * Patient refuses to be on NOAC, he is open to being on Coumadin following conversation with cardiology this morning * Patient on Heparin drip being bridged to Coumadin * Will need to bridge patient to Coumadin, given atrial fibrillation * Imaging: * CT Head (07/11/17): No acute findings * CT Head (07/12/17): Stable unenhanced head CT including age-related neuro degenerative changes as discussed above, but without new interval findings. * CT Head (07/13/17): patchy hypodensity within the right posterior occipital/ parietal lobe, watershed zone. Findings appear consistent with distal branch right TELEPHONE SOLICITOR territory infarction. Recommended MRI for evaluation. * Brain MRI (07/13/17): subacute infarction confirmed at subdistribution of the right TELEPHONE SOLICITOR involving right occipital lobe. Local mass effect only. Trace petechial hemorrhages are questioned anteromedially based on gradient echo axial series where the findings are isolated and not seen in other sequences. A subacute lacune is questioned at the right thalamus. 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 Status: Acute 2) Atrial Fibrillation * CHADSVASC: 7 (CHF, HTN, Age, Diabetes, Stroke, vascular disease, age>65) * HASBLED: 2 (stroke, and age) * Patient started on Heparin drip to bridge to Coumadin * Patient refuses and is not amenable Eliquis or similar medications except for Coumadin which he has been on in the past. Patient is aware of the risk of being on blood thinner, reports fear from prior bleeding, but will allow for Coumadin * History of noncompliance Status: Chronic 3) History of CVA (cerebrovascular accident) * Patient had two CVAs in recent two months, had TPA in 04/2017 hospital visit * Neurology Dr. Pennington on board-->help appreciated * Recommended for Brain MRI w/o contrast * Patient has had cartoid and MRA Head/Neck in 04/2017 which was normal and unremarkable * Recommended for Eliquis and Aspirin * Cardiology Dr. Gomez on board-->help appreciated * Patient refuses to be on NOAC, he is open to being on Coumadin following conversation with cardiology 07/12 and reaffirmed 07/13 * Patient on Heparin drip being bridged to Coumadin * Pending Brain MRI w/o contrast * Hgba1c: 5.3 * Lipid Panel: T, Chol: 129, LDL: 66, HDL: 50 * CT Head (07/11/17): No acute findings * CT Head (07/12/17): Stable unenhanced head CT including age-related neuro degenerative changes as discussed above, but without new interval findings. * CT Head (07/13/17): patchy hypodensity within the right posterior occipital/ parietal lobe, watershed zone. Findings appear consistent with distal branch right TELEPHONE SOLICITOR territory infarction. Recommended MRI for evaluation. * Brain MRI (07/13/17): subacute infarction confirmed at subdistribution of the right TELEPHONE SOLICITOR involving right occipital lobe. Local mass effect only. Trace petechial hemorrhages are questioned anteromedially based on gradient echo axial series where the findings are isolated and not seen in other sequences. A subacute lacune is questioned at the right thalamus. 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 * Aspirin 325mg PO given on admission; Aspirin d/c by cardiology Status: Acute 4) Epistaxis--Resolved * Patient had reported epistaxis 07/12. No further episodes reported. * Patient reported to the resident, he was recommended for ENT eval for possible cauterization, but never followed up on 07/12 * Discussed with ENT, 07/13, stable from standpoint. No active bleeding recommend f/u outpatient. * Repeat CT Head (07/12/17): CT Head (07/12/17): Stable unenhanced head CT including age-related neuro degenerative changes as discussed above, but without new interval findings. Status: Resolved 5) LV dysfunction * Per cardiology, patient does not have history of CHF, will re-eval echo given moderate congestion on chest xray with no history of documented CAD * Patient does not have CHF per discussed with cardiology. * Lasix 40mg PO daily * HCTZ 25mg PO daily * Cozaar 50mg PO daily * Topxol 50mg PO daily * Crestor 10mg POqHS Status: Acute 6) Deep Vein Thrombosis * Vascular Surgery (Dr. Fan) on board-->help appreciated * Patient to go to IVC filter today. * Venous doppler (07/12/17): partial acute deep vein thrombosis of the right popliteal vein. No evidence of deep or superficial vein thrombosis of the left lower extremity. Valvular incompetence noted of the left great saphenous vein * Patient does not want to be on NOAC nor appears to be compliant. Patient is open to Coumadin. Status: Acute 7) Leg pain * likely secondary to venous insufficiency and deep vein thrombosis * Discussed with podiatry resident, who will eval the feet with attending to see if antibiotics are warranted. patient does not have any visible wounds nor drainage. Status: Acute 8) Diabetes * Newly diagnosed with hemoglobin A1c 7.7 * Regular ISS low dose for now * Will need to start Metformin 9) Prophylactic measure * Contraindications for SCDS secondary to DVT Right lower extremity * Heart Healthy Diet mod consistent carbs * Colace 100mg PO BID PRN constipation * PT/OT eval * heparin Drip to Coumadin Disposition: Patient to have heparin bridged to Coumadin for anticoagulation. Patient refuses alternative options. Discussed risk and benefits of anticoagulation including bleeding and prevention of further stroke, patient given bleeding history, does not have NOAC. Discussed with neurology and cardiology. Patient completed head CT and allowed for Brain MRI today. Patient to go for IVC filter today. On heparin drip to bridge to Coumadin.
[2017-07-13] MEDS: (Novolin R) Insulin Human Regular 100 units/ml vial SC SCH ×4 (08:20→21:10)
--- NOTE | 2017-07-13 09:03 | CON ---
DATE: 07/11/2017 REASON FOR CONSULTATION: Epistaxis. REQUESTING PHYSICIANS: Dr. Lerma and Dr. Ortiz. HISTORY OF PRESENT ILLNESS: This is an 82-year-old male who had an episode of epistaxis on the left yesterday. It was constant, mild in intensity, lasted for about an hour, then stopped by itself. There is no pain. There is no discharge. PAST MEDICAL HISTORY: As noted in the chart by me. MEDICATIONS: As noted in the chart by me including heparin. PHYSICAL EXAMINATION: HEAD: Atraumatic, normocephalic. FACE: Good facial movements bilaterally. GENERAL: Well fed, well nourished, well groomed. COMMUNICATION: Communicates well appropriately. EXTERNAL NOSE AND EARS: No masses. No lesions. No erythema. No edema. INTERNAL NOSE: Deviated septum. No masses. No lesions. No erythema. No edema. No bleeding. ORAL CAVITY AND OROPHARYNX: No bloody postnasal drip. No masses. No lesions. No erythema. No edema. LIPS AND GUMS: No masses. No lesions. No erythema. No edema. NECK: Supple. THYROID: No thyromegaly. No goiter. LYMPH NODES: No lymphadenopathy of the neck. ASSESSMENT: 1. Epistaxis, resolved. 2. Deviated septum. PLAN: Since the patient is no longer bleeding and is on a heparin drip, there is no intervention to do as of now. Matt Valdez MD
[2017-07-13] MEDS: Metoprolol Succinate 50 mg XL Tab PO SCH (09:41)
[2017-07-13] MEDS: Desoximetasone 0.25% Cream(15 gm) TOP SCH ×2 (09:42→17:43)
[2017-07-13] MEDS: Ammonium Lactate 12% Lotion (225 g) EXT SCH ×2 (10:02→17:43)
--- NOTE | 2017-07-13 10:48 | CP.PCM.PN ---
Subjective - Date & Time of Evaluation Date of Evaluation: 07/13/17 Time of Evaluation: 10:48 - Subjective Subjective: Podiatry Progress note for Dr. Hatch 82 year old male was seen at bedside regarding discolored, edematous legs. He currently denies any pain to his legs. States that later today he is going to the OR for a procedure. Admits that since the creams have been applied to his legs, his legs feel better. Denies any n/v/f/c/sob/cp Objective - Vital Signs/Intake and Output Vital Signs (last 24 hours): Temp Pulse Resp BP Pulse Ox 97.2 F L 99 H 20 161/78 H 96 07/13/17 04:05 07/13/17 04:05 07/13/17 04:05 07/13/17 09:41 07/13/17 04:05 Intake and Output: 07/13/17 07/13/17 06:59 18:59 Intake Total 195.2 Output Total 650 Balance -454.8 - Medications Medications: Current Medications Acetaminophen (Tylenol 325mg Tab) 650 mg PO Q6 PRN PRN Reason: Pain, moderate (4-7) Last Admin: 07/13/17 07:51 Dose: 650 mg Desoximetasone (Topicort 0.25%) 0 ea TOP BID [facility] Last Admin: 07/13/17 09:42 Dose: 1 appl Docusate Sodium (Colace) 100 mg PO BID PRN PRN Reason: Constipation Furosemide (Lasix) 40 mg PO DAILY [facility] Last Admin: 07/13/17 09:41 Dose: 40 mg Hydrochlorothiazide (Hydrodiuril) 25 mg PO DAILY [facility] Last Admin: 07/13/17 09:41 Dose: 25 mg Heparin Sodium/Sodium Chloride (Heparin 66905 Units/250ml 1/2 Normal Saline) 25 ,000 units in 250 mls @ 11.975 mls/hr IV .[id number] PRN; Protocol; 12 UNITS/KG/HR PRN Reason: PROTOCOL Last Admin: 07/12/17 02:49 Dose: 12 units/kg/hr, 11.975 mls/hr Cefazolin Sodium 1,000 mg/ (Sodium Chloride) 100 mls @ 100 mls/hr IVPB Q8H [facility] Last Admin: 07/13/17 10:02 Dose: 100 mls/hr Insulin Human Regular (Novolin R) 0 unit SC ACHS [facility] PRN Reason: Protocol Last Admin: 07/13/17 08:20 Dose: Not Given Lactic Acid (Lac-Hydrin 12% Lotion (225 G)) 2 gm EXT BID [facility] Last Admin: 07/13/17 10:02 Dose: 1 applic Losartan Potassium (Cozaar) 50 mg PO DAILY [facility] Last Admin: 07/13/17 09:41 Dose: 50 mg Metoprolol Succinate (Toprol Xl) 50 mg PO DAILY [facility] Last Admin: 07/13/17 09:41 Dose: 50 mg Rosuvastatin Calcium (Crestor) 10 mg PO HS [facility] Last Admin: 07/12/17 21:45 Dose: 10 mg - Labs Labs: 07/13/17 06:23 07/13/17 06:23 PT 14.7 SECONDS (9.7-12.2) H 07/12/17 10:06 INR 1.3 07/12/17 10:06 APTT 54 SECONDS (21-34) H 07/13/17 01:31 - Constitutional Appears: Non-toxic, No Acute Distress - Extremities Exam Additional comments: Lower extremity focused exam: Vasc: DP and PT pulses non-palpable due to pitting edema. Skin temperature warm to warm from proximal to distal, symmetric b/l. CFT > 3 seconds to all digits. Neuro: Gross sensation intact Ortho:No tenderness on compression of calf b/l. Derm: Nails are thickened, elongated, dystrophic 1-10. Webspaces are clean, dry , intact. No open wounds noted. Legs from tibial tuberosity to medial malleolus circumferentally are red and dry. - Neurological Exam Neurological Exam: Alert, Awake, Oriented x3 - Psychiatric Exam Psychiatric exam: Normal Affect, Normal Mood Assessment and Plan - Assessment and Plan (Free Text) Assessment: 82 year old male with venous stasis b/l lower extremity Plan: patient examined and evaluated discussed with attending Dr. Hatch lab, chart, vitals reviewed LE Venous duplex showed partial acute DVT of the right popliteal vein Lac-hydrin and topicort to be applied to b/l LE daily continue ancef 1 g Q8 h podiatry will continue to follow patient while in house
--- NOTE | 2017-07-13 11:20 | CT ---
PROCEDURE: CT HEAD WITHOUT CONTRAST. HISTORY: headache COMPARISON: Noncontrast head CT performed 07/12/2017 TECHNIQUE: Axial computed tomography images were obtained through the head/brain without intravenous contrast. Radiation dose: Total exam DLP = 1077.95 mGy-cm. This CT exam was performed using one or more of the following dose reduction techniques: Automated exposure control, adjustment of the mA and/or kV according to patient size, and/or use of iterative reconstruction technique. FINDINGS: HEMORRHAGE: No intracranial hemorrhage. BRAIN: Diffuse atrophy with prominence of the ventricles and sulci noted. No mass effect or edema. Intracranial atherosclerosis. Hypodense region within the right Scattered periventricular and subcortical white matter hypodensities, which are nonspecific, but often seen with chronic microvascular ischemic disease. Please note that MRI with diffusion imaging is more sensitive in the detection of acute ischemic event. VENTRICLES: No hydrocephalus. CALVARIUM: Unremarkable. PARANASAL SINUSES: Partial opacification of the left frontal ethmoid air cells. MASTOID AIR CELLS: Unremarkable as visualized. No inflammatory changes. OTHER FINDINGS: None. IMPRESSION: Findings which appear consistent with distal branch right [employer] territory infarction. Recommend MRI for further evaluation. Findings discussed with Keyla Cruz on 07/13/17 at 11:14 a.m.
--- NOTE | 2017-07-13 11:33 | PN ---
DATE: NEUROLOGICAL PROBLEM: Left homonymous hemianopsia with left-sided mild hemiparesthesia. PHYSICAL EXAMINATION: VITAL SIGNS: Blood pressure 132/95, mean arterial pressure 107, respiratory rate 18, temperature 97.2; pulse rate 99, irregular. The patient's repeat CT of the head currently have no new changes. The patient was seen by steamtable attendant railroad, recommended anticoagulation. Considering his MCA Vs BOILERMAKER HELPER territory ischemic process, the patient is not a good candidate for IV anticoagulation. The patient is recommended to go oral anticoagulation, which can be continued. IV heparin is not indicated for this case because of hemorrhagic conversion of his large vessel embolic process. He has a repeat CT of the head, which does not show any acute process. MRI of the brain, even we instructed him to have it done, the patient refused not to have it. I strongly recommended him to be on oral anticoagulation with lower dose, which can be bumped up to therapeutic level in second or third week. The patient will be followed closely with you. Young Pennington MD MTDWild
[2017-07-13] MEDS ORDERED: Lidocaine 1% Inj (20ml) ONE (14:25)
[2017-07-13] MEDS ORDERED: Iodixanol 320 MG/ML 200 ML BOTTLE IV ONE (14:25)
[2017-07-13] MEDS ORDERED: Heparin25000 units/250ml 1/2NS 25,000 UNITS/250 ML BAG IV PRN (14:30)
[2017-07-13] MEDS ORDERED: HEPARIN-NS 5,000 UNITS/500 ML 5,000 UNIT/500 ML BAG IV ONE (14:36)
[2017-07-13] MEDS ORDERED: Sodium Chloride 0.9% 250 ML IV ONE (14:57)
[2017-07-13] MEDS ORDERED: Midazolam 2 MG/2 ML VIAL ONE (14:59)
[2017-07-13] MEDS ORDERED: Propofol 10 mg/ml Inj (20 ML) ONE (14:59)
--- NOTE | 2017-07-13 15:45 | MRI ---
PROCEDURE: MRI BRAIN WITHOUT CONTRAST HISTORY: Hemianopia COMPARISON: None. TECHNIQUE: Multiplanar, multisequence MR images of the brain were obtained without intravenous contrast enhancement. FINDINGS: HEMORRHAGE: Trace petechial hemorrhages questioned at the medial anterior right occipital lobe with signal changes seen only in the gradient echo axial series. DWI: Early subacute infarct appreciate the right VULCAN CREWMEMBER distribution involving the posteromedial right occipital lobe where restricted diffusion is quite well demonstrated. There is a questionable subacute lacune at the right thalamus posteriorly. Local mass effect is appreciated only with no generalized mass effect identified. BRAIN PARENCHYMA: Good corticomedullary differentiation is seen exclusive of the right VULCAN CREWMEMBER infarcted territory. Reiterated diffuse cerebral atrophy and chronic microangiopathy. No suspicious extra-axial fluid collection is identified and the midline brain anatomy appears grossly nonfocal as imaged. VENTRICLES: Unremarkable. No hydrocephalus. CRANIUM: Unremarkable. ORBITS: Grossly unremarkable. PARANASAL SINUSES/MASTOIDS: Left ethmoid sinusitis is appreciated. VASCULAR SYSTEM: Skull base flow voids intact. OTHER FINDINGS: None. IMPRESSION: 1. Subacute infarction confirmed at a sub distribution of the right VULCAN CREWMEMBER involving right occipital lobe. Local mass effect only. Trace petechial hemorrhages are questioned anteromedially based on gradient echo axial series where the findings are isolated and not seen in other sequences. A subacute lacune is questioned at the right thalamus. 2. Reiterated age related neuro degenerative changes. 3. Continued clinical and cross-sectional imaging follow-up advised.
--- NOTE | 2017-07-13 15:59 | PCM.SURG1 ---
Surgeon's Initial Post Op Note - Surgeon's Notes Surgeon: Dr Fan Football Scout: Dr Mann PGY3 Type of Anesthesia: General Endo Pre-Operative Diagnosis: stroke, cva Operative Findings: see report Post-Operative Diagnosis: as above Operation Performed: right femoral groin IVC filter w/ ultrasound guidance and intraoperative floroscopy Specimen/Specimens Removed: none Estimated Blood Loss: EBL {In ML}: 5 Blood Products Given: N/A Drains Used: No Drains Post-Op Condition: Good Date of Surgery/Procedure: 07/13/17 Time of Surgery/Procedure: 15:59
[2017-07-13] MEDS ORDERED: Sodium Chloride 0.9% 1,000 ML IV SCH (16:15)
[2017-07-13 20:01] LABS: INR 1.4
--- NOTE | 2017-07-13 23:15 | OP ---
PROCEDURE DATE: 07/13/2017 PREOPERATIVE DIAGNOSIS: Deep vein thrombosis. POSTOPERATIVE DIAGNOSIS: Deep vein thrombosis. PROCEDURE: Placement of Bard Coffey removable filter via right femoral vein with C-arm fluoroscopy, ultrasound-guided puncture, and micropuncture technique. INDICATIONS: Patient is an elderly man, history of problems with taking anticoagulation, multiple falls, etc. OPERATIVE FINDINGS: Filter was inserted uneventfully via the femoral vein. DESCRIPTION OF PROCEDURE: Patient was given local anesthesia. Using ultrasound guidance and micropuncture technique, the right femoral vein was punctured. Under fluoroscopic control, guidewire was advanced centrally. This was exchanged for a Starter wire, which was subsequently exchanged through the catheter for an Amplatz wire. A venacavogram was then taken, which showed the location of the confluence of the iliac veins. After this has been done, was then placed. There was excellent flow and this was positioned appropriately in an upright position in the vena cava adjacent to the level of renal veins. Pressure was applied to the puncture site and the procedure was terminated. Blood loss of the procedure was minimal, less than 20 mL. Operation carried out was Bard Coffey removable vena cava filter via right femoral vein with C-arm fluoroscopy, ultrasound-guided puncture and micropuncture technique. Ultrasound images of the groin showed that the vein was 13 mm in diameter with normal compressibility and no evidence of intraluminal thrombosis. Galileo Fan Jr., MD
[2017-07-14] MEDS: CEFAZOLIN IVPB SCH ×2 (02:13→10:14)
[2017-07-14] MEDS: DEXTROSE 5% IVPB SCH ×2 (02:13→10:14)
[2017-07-14] MEDS: WATER IVPB SCH ×2 (02:13→10:14)
--- NOTE | 2017-07-14 06:50 | CP.PCM.PN ---
<Abel Romero - Last Filed: 07/14/17 18:43> Subjective - Date & Time of Evaluation Date of Evaluation: 07/14/17 Time of Evaluation: 09:10 - Subjective Subjective: Medicine note for Dr. Lerma Patient seen and examined at bedside. Patient seen and examined at bedside. Patient reports improvement in vision but blurriness remains. Patient has no acute complaints except for some confusion in the evening that he attributes to the anesthesia from his procedure yesterday. Objective - Vital Signs/Intake and Output Vital Signs (last 24 hours): Temp Pulse Resp BP Pulse Ox 99.1 F 95 H 20 143/90 97 07/14/17 04:30 07/14/17 04:30 07/14/17 04:30 07/14/17 04:30 07/14/17 04:30 Intake and Output: 07/13/17 07/14/17 18:59 06:59 Intake Total 50 1041 Output Total 800 Balance -750 1041 - Medications Medications: Current Medications Acetaminophen (Tylenol 325mg Tab) 650 mg PO Q6 PRN PRN Reason: Pain, moderate (4-7) Last Admin: 07/14/17 04:16 Dose: 650 mg Desoximetasone (Topicort 0.25%) 0 ea TOP BID [facility] Last Admin: 07/13/17 17:43 Dose: 1 appl Docusate Sodium (Colace) 100 mg PO BID PRN PRN Reason: Constipation Furosemide (Lasix) 40 mg PO DAILY [facility] Last Admin: 07/13/17 09:41 Dose: 40 mg Hydrochlorothiazide (Hydrodiuril) 25 mg PO DAILY [facility] Last Admin: 07/13/17 09:41 Dose: 25 mg Heparin Sodium/Sodium Chloride (Heparin 51772 Units/250ml 1/2 Normal Saline) 25 ,000 units in 250 mls @ 11.376 mls/hr IV .[id number] PRN; Protocol; 12 UNITS/KG/HR PRN Reason: ADJUST RATE PER PROTOCOL Last Admin: 07/13/17 20:36 Dose: 12 units/kg/hr, 11.376 mls/hr Cefazolin Sodium 1,000 mg/ (Dextrose) 100 mls @ 100 mls/hr IVPB Q8H [facility] Last Admin: 07/14/17 02:13 Dose: 100 mls/hr Sodium Chloride (Sodium Chloride 0.9%) 1,000 mls @ 50 mls/hr IV .Q20H [facility] Last Admin: 07/13/17 17:43 Dose: 50 mls/hr Insulin Human Regular (Novolin R) 0 unit SC ACHS [facility] PRN Reason: Protocol Last Admin: 07/13/17 21:10 Dose: Not Given Lactic Acid (Lac-Hydrin 12% Lotion (225 G)) 2 gm EXT BID [facility] Last Admin: 07/13/17 17:43 Dose: 1 applic Losartan Potassium (Cozaar) 50 mg PO DAILY [facility] Last Admin: 07/13/17 09:41 Dose: 50 mg Metoprolol Succinate (Toprol Xl) 50 mg PO DAILY [facility] Last Admin: 07/13/17 09:41 Dose: 50 mg Rosuvastatin Calcium (Crestor) 10 mg PO HS [facility] Last Admin: 07/13/17 21:10 Dose: 10 mg - Labs Labs: 07/13/17 06:23 07/13/17 06:23 PT 15.6 SECONDS (9.7-12.2) H 07/13/17 19:50 INR 1.4 07/13/17 19:50 APTT 51 SECONDS (21-34) H D 07/14/17 01:57 - Constitutional Appears: No Acute Distress - Head Exam Head Exam: ATRAUMATIC, NORMOCEPHALIC - Eye Exam Eye Exam: EOMI, PERRL - ENT Exam ENT Exam: Mucous Membranes Moist - Respiratory Exam Respiratory Exam: Clear to Ausculation Bilateral. absent: Rales, Rhonchi, Wheezes - Cardiovascular Exam Cardiovascular Exam: Irregular Rhythm, +S1, +S2 - GI/Abdominal Exam GI & Abdominal Exam: Soft, Normal Bowel Sounds. absent: Tenderness - Extremities Exam Additional comments: bilateral edema with evidence of chronic venous stasis changes - Neurological Exam Neurological Exam: Alert, Awake. absent: Oriented x3 (oriented to person and place only) Additional comments: continues to have left sided visual field deficits in both eyes - Psychiatric Exam Psychiatric exam: Flat Affect - Skin Skin Exam: Dry, Warm Assessment and Plan - Assessment and Plan (Free Text) Plan: Hemianopia Dr. Pennington neurology consult, help appreciated. Dr. Gomez cardiology consult, help appreciated. CT Head - No acute infarct Repeat Head CT on 07/12 demonstrated no hemorrhagic conversion Third repeat Head CT on 07/13 (ordered due to new onset headache in light of current sequelae) demonstrates confirmation of ischemic HEELER MACHINE territory infarct. MRI brain w.o. contrast revealed trace petechial hemorrhages questioned at the medial anterior right occipital lobe with signal changes seen only in the gradient echo axial series. All anticoagulation has been stopped as a result of the hemorrhages. History of CVA (cerebrovascular accident) Patient had two CVA, both with TPA admin No TPA for this current CVA since it met criteria for contraindication Was previously on warfarin but stopped due to bleeding s/p TURB Dr. Pennington recommended Eliquis but after speaking with Dr. Gomez, patient is amenable to Coumadin with routine follow ups Crestor 10 PO HS Unable to anticoagulate due to the hemorrhages seen on MRI on 07/13/17 Dr. Gomez will try to get watchman device for stroke prevention Hypertension Lasix 20 PO HS HCTZ 25 PO QD Metoprolol 50 PO QD Atrial Fibrillation Rate controlled Metoprolol 50 mg PO QD Unable to anticoagulate due to the hemorrhages Dr. Gomez will try to get watchman device for stroke prevention DVT Coumadin 5 mg PO Heparin drip bridge Dr. Fan vascular surgery consulted for evaluation of IVC filter placement Patient is for OR later this afternoon for IVC filter given his history of poor compliance History of epistaxis ENT Dr. Valdez consulted, help appreciated Per Dr. Valdez, outpatient follow up since patient is not actively bleeding Leg pain Likely venous stasis vs infectious Podiatry ([facility]) Ancef 1 gm [id number] on 07/14/17 by podiatry Lac-Hydrin emollient and topical steroid Improvements noted Diabetes Newly diagnosed with hemoglobin A1c 7.7 Regular ISS low dose for now Prophylactic measure Heart Healthy Diet mod consistent carbs Protonix 40 mg IV daily SCDs c/i due to leg swelling Medication anticoagulation c/i due to petechial hemorrhage Colace Please note that this patient does NOT have CHF. Upon review of the previous echocardiogram on 05/04/17, patient does not have left ventricle dysfunction. This was confirmed with the metal mover by the primary attending. Case DW Dr. Florentin Romero PGY-1 <Christel Lerma V - Last Filed: 07/15/17 00:17> Objective - Vital Signs/Intake and Output Vital Signs (last 24 hours): Temp Pulse Resp BP Pulse Ox 97.9 F 115 H 20 125/83 96 07/14/17 23:00 07/14/17 23:00 07/14/17 23:00 07/14/17 23:00 07/14/17 23:00 Intake and Output: 07/14/17 07/15/17 18:59 06:59 Intake Total 250 Output Total 350 Balance -100 - Medications Medications: Current Medications Acetaminophen (Tylenol 325mg Tab) 650 mg PO Q6 PRN PRN Reason: Pain, moderate (4-7) Last Admin: 07/14/17 04:16 Dose: 650 mg Desoximetasone (Topicort 0.25%) 0 ea TOP BID [facility] Last Admin: 07/14/17 17:31 Dose: 1 appl Docusate Sodium (Colace) 100 mg PO BID PRN PRN Reason: Constipation Furosemide (Lasix) 40 mg PO DAILY [facility] Last Admin: 07/14/17 10:12 Dose: 40 mg Hydrochlorothiazide (Hydrodiuril) 25 mg PO DAILY [facility] Last Admin: 07/14/17 10:13 Dose: 25 mg Insulin Human Regular (Novolin R) 0 unit SC ACHS [facility] PRN Reason: Protocol Last Admin: 07/14/17 22:07 Dose: Not Given Lactic Acid (Lac-Hydrin 12% Lotion (225 G)) 2 gm EXT BID [facility] Last Admin: 07/14/17 17:31 Dose: 1 applic Losartan Potassium (Cozaar) 50 mg PO BID [facility] Last Admin: 07/14/17 17:30 Dose: 50 mg Metoprolol Succinate (Toprol Xl) 50 mg PO DAILY [facility] Last Admin: 07/14/17 10:14 Dose: 50 mg Pantoprazole Sodium (Protonix Inj) 40 mg IVP DAILY [facility] Last Admin: 07/14/17 22:07 Dose: 40 mg Rosuvastatin Calcium (Crestor) 10 mg PO HS [facility] Last Admin: 07/14/17 22:07 Dose: 10 mg - Labs Labs: 07/14/17 06:33 07/14/17 06:33 PT 15.6 SECONDS (9.7-12.2) H 07/14/17 06:33 INR 1.4 07/14/17 06:33 APTT 51 SECONDS (21-34) H D 07/14/17 01:57 Attending/Attestation - Attestation I have personally seen and examined this patient.: Yes I have fully participated in the care of the patient.: Yes I have reviewed all pertinent clinical information, including history, physical exam and plan: Yes Notes (Text): patient seen, examined and case discussed with daytime resident. Patient seen this morning at 11:30AM. Patient reports blurry vision, reports he thinks is improving. His brother Ritesh Salmeron is at bedside. Patient permits to share medical information with his brother. Patient reports he is walking well and nurse confirms as well. patient's strength is great, able to hand shake but his vision remains unimproved. Note on Brain MRI: notes for trace petechial hemorrhage? in body of report not in the impression. Heparin drip stopped. Cardiology and neurology are aware and confirmed with patient's nurse. Cardiology will look into setting patient up for Watchmen Device for his atrial fibrillation given his risk for recurrent stroke. Patient is also reports his vision is still affected. Patient strongly advised he should not drive following hospitalization and discussed with cardiology as well who also affirms this. This was re-emphasized again during rounds. Patient is post op day 1 of IVC filter, appreciate help from vascular team. Ritesh Salmeron reports he would like to be health proxy for his brother. Consulted Palliative care to setup POLST for the patient. I found out later this evening prior to end of shift palliative care is not available until . Assessment/Plan 1) Left complete hemianopsia * secondary to atrial fibrillation, history of recurrent stroke, * Patient only taking Aspirin; does not want to take Eliquis * Neurology Dr. Pennington on board-->help appreciated * Recommended for Brain MRI w/o contrast * Patient has had cartoid and MRA Head/Neck in 04/2017 which was normal and unremarkable * Recommended for Eliquis and Aspirin * Patient refuses NOAC and affirmed 07/13- * Risk of heparin drip for hemorrhagic stroke discussed with patient 07/13; witness by the nurse at bedside * Cardiology Dr. Gomez on board-->help appreciated * Patient refuses to be on NOAC, he is open to being on Coumadin following conversation with cardiology this morning * Off heparin drip given petechiae trace hemorrhage on Brain MRI * Cardiology to setup patient for Watchmen device for his atrial fibrillation * Imaging: * CT Head (07/11/17): No acute findings * CT Head (07/12/17): Stable unenhanced head CT including age-related neuro degenerative changes as discussed above, but without new interval findings. * CT Head (07/13/17): patchy hypodensity within the right posterior occipital/ parietal lobe, watershed zone. Findings appear consistent with distal branch right HEELER MACHINE territory infarction. Recommended MRI for evaluation. * Brain MRI (07/13/17): subacute infarction confirmed at subdistribution of the right HEELER MACHINE involving right occipital lobe. Local mass effect only. Trace petechial hemorrhages are questioned anteromedially based on gradient echo axial series where the findings are isolated and not seen in other sequences. A subacute lacune is questioned at the right thalamus. 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 * Heparin DRIP is stopped. Status: Acute 2) Atrial Fibrillation * CHADSVASC: 7 (CHF, HTN, Age, Diabetes, Stroke, vascular disease, age>65) * HASBLED: 2 (stroke, and age) * Patient refuses and is not amenable Eliquis or similar medications except for Coumadin which he has been on in the past. Patient is aware of the risk of being on blood thinner, reports fear from prior bleeding, but will allow for Coumadin. Patient cannot be on heparin drip given trace petechial hemorrhage noted in the body * Cardiology is looking into Watchmen device for the patient * History of noncompliance on Eliquis Status: Chronic 3) History of CVA (cerebrovascular accident) * Patient had two CVAs in recent two months, had TPA in 04/2017 hospital visit * Neurology Dr. Pennington on board-->help appreciated * Recommended for Brain MRI w/o contrast * Patient has had cartoid and MRA Head/Neck in 04/2017 which was normal and unremarkable * Recommended for Eliquis and Aspirin * Patient refuses NOAC and affirmed 07/13- * Risk of heparin drip for hemorrhagic stroke discussed with patient 07/13; witness by the nurse at bedside * Cardiology Dr. Gomez on board-->help appreciated * Patient refuses to be on NOAC, he is open to being on Coumadin following conversation with cardiology 07/12 and reaffirmed 07/13 * Off heparin drip 07/14 given trace petechial hemorrhage * Investigating for Watchmen device for the patient * Pending Brain MRI w/o contrast * Hgba1c: 5.3 * Lipid Panel: T, Chol: 129, LDL: 66, HDL: 50 * CT Head (07/11/17): No acute findings * CT Head (07/12/17): Stable unenhanced head CT including age-related neuro degenerative changes as discussed above, but without new interval findings. * CT Head (07/13/17): patchy hypodensity within the right posterior occipital/ parietal lobe, watershed zone. Findings appear consistent with distal branch right HEELER MACHINE territory infarction. Recommended MRI for evaluation. * Brain MRI (07/13/17): subacute infarction confirmed at subdistribution of the right HEELER MACHINE involving right occipital lobe. Local mass effect only. Trace petechial hemorrhages are questioned anteromedially based on gradient echo axial series where the findings are isolated and not seen in other sequences. A subacute lacune is questioned at the right thalamus. 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 * Aspirin 325mg PO given on admission; Aspirin d/c by cardiology Status: Acute 4) Epistaxis--Resolved * Patient had reported epistaxis 07/12. No further episodes reported. * Patient reported to the resident, he was recommended for ENT eval for possible cauterization, but never followed up on 07/12 * Discussed with ENT, 07/13, stable from standpoint. No active bleeding recommend f/u outpatient. * Repeat CT Head (07/12/17): CT Head (07/12/17): Stable unenhanced head CT including age-related neuro degenerative changes as discussed above, but without new interval findings. Status: Resolved 5) LV dysfunction * Per cardiology, patient does not have history of CHF, will re-eval echo given moderate congestion on chest xray with no history of documented CAD * Patient does not have CHF per discussed with cardiology. * Lasix 40mg PO daily * HCTZ 25mg PO daily * Increased Cozaar 100mg PO daily * Topxol 50mg PO daily * Crestor 10mg POqHS Status: Acute 6) Deep Vein Thrombosis * Vascular Surgery (Dr. Fan) on board-->help appreciated * Venous doppler (07/12/17): partial acute deep vein thrombosis of the right popliteal vein. No evidence of deep or superficial vein thrombosis of the left lower extremity. Valvular incompetence noted of the left great saphenous vein * S/p IVC filter 07/13/17 * Anticoagulation contraindicated secondary to trace petechial hemorrhage on Brain MRI Status: Acute 7) Leg pain * likely secondary to venous insufficiency and deep vein thrombosis * 07/02 Discussed with podiatry resident, who will eval the feet with attending to see if antibiotics are warranted. patient does not have any visible wounds nor drainage. Status: Acute 8) Diabetes * Newly diagnosed with hemoglobin A1c 7.7 * Regular ISS low dose for now * Will need to start Metformin pending Watchmen device setp 9) Prophylactic measure * Contraindications for SCDS secondary to DVT Right lower extremity * Heart Healthy Diet mod consistent carbs * Colace 100mg PO BID PRN constipation * PT/OT eval * heparin Drip to Coumadin Disposition: Patient is off heparin drip given trace petechial hemorrhage noted on Brain MRI. Cardiology and neurology are aware. Cardiology will look into Watchmen device for the atrial fibrillation. Patient is POD 1. Patient's brother informed during rounds.
[2017-07-14 06:52] LABS: BASO % 0.4 % (0.0-2.0); EOS # 0.1 K/uL (0.0-0.7); EOS % 1.3 % (0.0-4.0); HEMATOCRIT 39.2 % (35.0-51.0); LYMPH # 0.5 K/uL (1.0-4.3); LYMPH % 7.4 % (20.0-40.0); MEAN CORPUSCULAR HEMOGLOBIN 29.7 pg (27.0-31.0); MEAN CORPUSCULAR HGB CONC 35.7 g/dL (33.0-37.0); MEAN PLATELET VOLUME 7.8 fL (7.2-11.7); MONO # 0.9 K/uL (0.0-0.8); MONO % 12.3 % (0.0-10.0); NRBC % 0.1 % (0.0-2.0); PLATELET COUNT 205 K/uL (130-400); RED CELL DISTRIBUTION WIDTH 15.8 % (11.5-14.5); WHITE BLOOD COUNT 7.3 K/uL (4.8-10.8)
[2017-07-14 06:56] LABS: INR 1.4
[2017-07-14 07:01] LABS: BLOOD UREA NITROGEN 17 mg/dL (9-20); CARBON DIOXIDE 30 mmol/L (22-30); CHLORIDE 95 mmol/L (98-107); GFR AFRICAN-AMERICAN > 60; GLUCOSE,RANDOM 108 mg/dL (75-110); POTASSIUM 3.6 mmol/L (3.6-5.2); SODIUM 133 mmol/L (132-148)
[2017-07-14 07:02] LABS: ALB/GLOB RATIO 0.9 (1.0-2.1); ALKALINE PHOSPHATASE 63 U/L (38-126); ALT/SGPT 14 U/L (21-72); AST/SGOT 21 U/L (17-59); BILIRUBIN,TOTAL 1.5 mg/dL (0.2-1.3); CALCIUM 8.3 mg/dl (8.6-10.4)
[2017-07-14] MEDS: (Novolin R) Insulin Human Regular 100 units/ml vial SC SCH ×4 (07:45→22:07)
--- NOTE | 2017-07-14 07:51 | CP.PCM.PN ---
Subjective - Date & Time of Evaluation Date of Evaluation: 07/14/17 Time of Evaluation: 07:00 - Subjective Subjective: Surgical Progress Note: Patient was seen and examined at bedside in the AM. Patient states he is feeling well just tired. He denies pain to the incision site. He states he is passing gas. He denies nausea, vomiting or other complaints at this time. Objective - Vital Signs/Intake and Output Vital Signs (last 24 hours): Temp Pulse Resp BP Pulse Ox 99.1 F 95 H 20 143/90 97 07/14/17 04:30 07/14/17 04:30 07/14/17 04:30 07/14/17 04:30 07/14/17 04:30 Intake and Output: 07/14/17 07/14/17 06:59 18:59 Intake Total 1041 Balance 1041 - Medications Medications: Current Medications Acetaminophen (Tylenol 325mg Tab) 650 mg PO Q6 PRN PRN Reason: Pain, moderate (4-7) Last Admin: 07/14/17 04:16 Dose: 650 mg Desoximetasone (Topicort 0.25%) 0 ea TOP BID [facility] Last Admin: 07/13/17 17:43 Dose: 1 appl Docusate Sodium (Colace) 100 mg PO BID PRN PRN Reason: Constipation Furosemide (Lasix) 40 mg PO DAILY [facility] Last Admin: 07/13/17 09:41 Dose: 40 mg Hydrochlorothiazide (Hydrodiuril) 25 mg PO DAILY [facility] Last Admin: 07/13/17 09:41 Dose: 25 mg Heparin Sodium/Sodium Chloride (Heparin 96030 Units/250ml 1/2 Normal Saline) 25 ,000 units in 250 mls @ 11.376 mls/hr IV .[id number] PRN; Protocol; 12 UNITS/KG/HR PRN Reason: ADJUST RATE PER PROTOCOL Last Admin: 07/13/17 20:36 Dose: 12 units/kg/hr, 11.376 mls/hr Cefazolin Sodium 1,000 mg/ (Dextrose) 100 mls @ 100 mls/hr IVPB Q8H [facility] Last Admin: 07/14/17 02:13 Dose: 100 mls/hr Sodium Chloride (Sodium Chloride 0.9%) 1,000 mls @ 50 mls/hr IV .Q20H [facility] Last Admin: 07/13/17 17:43 Dose: 50 mls/hr Insulin Human Regular (Novolin R) 0 unit SC ACHS [facility] PRN Reason: Protocol Last Admin: 07/14/17 07:45 Dose: Not Given Lactic Acid (Lac-Hydrin 12% Lotion (225 G)) 2 gm EXT BID [facility] Last Admin: 07/13/17 17:43 Dose: 1 applic Losartan Potassium (Cozaar) 50 mg PO DAILY [facility] Last Admin: 07/13/17 09:41 Dose: 50 mg Metoprolol Succinate (Toprol Xl) 50 mg PO DAILY [facility] Last Admin: 07/13/17 09:41 Dose: 50 mg Rosuvastatin Calcium (Crestor) 10 mg PO HS [facility] Last Admin: 07/13/17 21:10 Dose: 10 mg - Labs Labs: 07/14/17 06:33 07/14/17 06:33 PT 15.6 SECONDS (9.7-12.2) H 07/14/17 06:33 INR 1.4 07/14/17 06:33 APTT 51 SECONDS (21-34) H D 07/14/17 01:57 - Constitutional Appears: No Acute Distress - Head Exam Head Exam: ATRAUMATIC, NORMAL INSPECTION - Eye Exam Eye Exam: EOMI, Normal appearance - ENT Exam ENT Exam: Mucous Membranes Moist - Respiratory Exam Respiratory Exam: Clear to Ausculation Bilateral, NORMAL BREATHING PATTERN - Cardiovascular Exam Cardiovascular Exam: Irregular Rhythm, +S1, +S2 - GI/Abdominal Exam GI & Abdominal Exam: Soft, Normal Bowel Sounds. absent: Tenderness - Extremities Exam Extremities Exam: Pedal Edema. absent: Calf Tenderness, Tenderness - Neurological Exam Neurological Exam: Alert, Awake, Oriented x3 - Skin Skin Exam: Dry, Intact, Warm. absent: Rash Additional comments: s/p ight femoral groin IVC filter: incision on right groin was clean, dry and intact, negative for tenderness Assessment and Plan - Assessment and Plan (Free Text) Assessment: 82 year old male with past medical history of CVA x2, afib, bladder cancer, HTN , and CAD presented to the ER 07/12 for blurry vision. Continue management per medical team dressing c/d/i - can remove tomorrow No further surgical intervention. Please reconsult if needed. Fadumo Bautista PGY-1
--- NOTE | 2017-07-14 08:16 | PN ---
DATE: 07/14/2017 NEUROLOGICAL PROBLEM: Left homonymous hemianopsia. Probably embolic source secondary to cardiac atrial fibrillation. PHYSICAL EXAMINATION: VITAL SIGNS: Blood pressure 143/90, mean arterial pressure of 107, respiratory rate 18, temperature 99.9, pulse rate 95, irregular. NEUROLOGIC: The patient is awake, alert, oriented to person, place and time. Speech is intact. The patient does have left homonymous hemianopsia consistent with right occipital dysfunction, which coincide with MRI of the brain showed BUS COMPANY MANAGER territory ischemic process. Rest of the examination is normal. However, the right hemiparesis probably old secondary to his previous stroke. RECOMMENDATION: The patient is tolerating the current treatment. I will let him continue the medication as he has been getting it at present. Long-term anticoagulation is absolutely necessary for him. Young Pennington MD
[2017-07-14 08:42] LABS: EOSINOPHIL 1 % (0-4); NEUTROPHIL 75 % (50-75); TOTAL CELLS COUNTED 100
--- NOTE | 2017-07-14 09:38 | CP.PCM.PN ---
Subjective - Date & Time of Evaluation Date of Evaluation: 07/14/17 Time of Evaluation: 09:38 - Subjective Subjective: Podiatry Progress note for Dr. Hatch 82 year old male was seen at bedside regarding discolored, edematous legs. He currently denies any pain to his legs and states that they are feeling better today. Denies any n/v/f/c/sob/cp Objective - Vital Signs/Intake and Output Vital Signs (last 24 hours): Temp Pulse Resp BP Pulse Ox 98.1 F 81 18 155/89 H 100 07/14/17 07:59 07/14/17 07:59 07/14/17 07:59 07/14/17 07:59 07/14/17 07:59 Intake and Output: 07/14/17 07/14/17 06:59 18:59 Intake Total 1041 Balance 1041 - Medications Medications: Current Medications Acetaminophen (Tylenol 325mg Tab) 650 mg PO Q6 PRN PRN Reason: Pain, moderate (4-7) Last Admin: 07/14/17 04:16 Dose: 650 mg Desoximetasone (Topicort 0.25%) 0 ea TOP BID [facility] Last Admin: 07/13/17 17:43 Dose: 1 appl Docusate Sodium (Colace) 100 mg PO BID PRN PRN Reason: Constipation Furosemide (Lasix) 40 mg PO DAILY [facility] Last Admin: 07/13/17 09:41 Dose: 40 mg Hydrochlorothiazide (Hydrodiuril) 25 mg PO DAILY [facility] Last Admin: 07/13/17 09:41 Dose: 25 mg Cefazolin Sodium 1,000 mg/ (Dextrose) 100 mls @ 100 mls/hr IVPB Q8H [facility] Last Admin: 07/14/17 02:13 Dose: 100 mls/hr Sodium Chloride (Sodium Chloride 0.9%) 1,000 mls @ 50 mls/hr IV .Q20H [facility] Last Admin: 07/13/17 17:43 Dose: 50 mls/hr Insulin Human Regular (Novolin R) 0 unit SC ACHS [facility] PRN Reason: Protocol Last Admin: 07/14/17 07:45 Dose: Not Given Lactic Acid (Lac-Hydrin 12% Lotion (225 G)) 2 gm EXT BID [facility] Last Admin: 07/13/17 17:43 Dose: 1 applic Losartan Potassium (Cozaar) 50 mg PO DAILY [facility] Last Admin: 07/13/17 09:41 Dose: 50 mg Metoprolol Succinate (Toprol Xl) 50 mg PO DAILY [facility] Last Admin: 07/13/17 09:41 Dose: 50 mg Rosuvastatin Calcium (Crestor) 10 mg PO HS [facility] Last Admin: 07/13/17 21:10 Dose: 10 mg - Labs Labs: 07/14/17 06:33 07/14/17 06:33 PT 15.6 SECONDS (9.7-12.2) H 07/14/17 06:33 INR 1.4 07/14/17 06:33 APTT 51 SECONDS (21-34) H D 07/14/17 01:57 - Constitutional Appears: Non-toxic, No Acute Distress - Extremities Exam Additional comments: Lower extremity focused exam: Vasc: DP and PT pulses non-palpable due to pitting edema. Skin temperature warm to warm from proximal to distal, symmetric b/l. CFT > 3 seconds to all digits. Neuro: Gross sensation intact Ortho:No tenderness on compression of calf b/l. Derm: Nails are thickened, elongated, dystrophic 1-10. Webspaces are clean, dry , intact. No open wounds noted. Legs from tibial tuberosity to medial malleolus circumferentally are red and dry-improving. - Neurological Exam Neurological Exam: Alert, Awake, Oriented x3 - Psychiatric Exam Psychiatric exam: Normal Affect, Normal Mood Assessment and Plan - Assessment and Plan (Free Text) Assessment: 82 year old male with venous stasis b/l lower extremity Plan: patient examined and evaluated discussed with attending Dr. Hatch lab, chart, vitals reviewed;afebrile, WBC 7.3 LE Venous duplex showed partial acute DVT of the right popliteal vein Lac-hydrin and topicort to be applied to b/l LE daily continue ancef 1 g Q8 h podiatry will continue to follow patient while in house
--- NOTE | 2017-07-14 09:45 | CP.PCM.PN ---
Subjective - Date & Time of Evaluation Date of Evaluation: 07/14/17 Time of Evaluation: 09:41 - Subjective Subjective: Pt still has poor vision. He has a headache, MRI performed with micro hemorrhage. Objective - Vital Signs/Intake and Output Vital Signs (last 24 hours): Temp Pulse Resp BP Pulse Ox 98.1 F 81 18 155/89 H 100 07/14/17 07:59 07/14/17 07:59 07/14/17 07:59 07/14/17 07:59 07/14/17 07:59 Intake and Output: 07/14/17 07/14/17 06:59 18:59 Intake Total 1041 Balance 1041 - Medications Medications: Current Medications Acetaminophen (Tylenol 325mg Tab) 650 mg PO Q6 PRN PRN Reason: Pain, moderate (4-7) Last Admin: 07/14/17 04:16 Dose: 650 mg Desoximetasone (Topicort 0.25%) 0 ea TOP BID [facility] Last Admin: 07/13/17 17:43 Dose: 1 appl Docusate Sodium (Colace) 100 mg PO BID PRN PRN Reason: Constipation Furosemide (Lasix) 40 mg PO DAILY [facility] Last Admin: 07/13/17 09:41 Dose: 40 mg Hydrochlorothiazide (Hydrodiuril) 25 mg PO DAILY [facility] Last Admin: 07/13/17 09:41 Dose: 25 mg Cefazolin Sodium 1,000 mg/ (Dextrose) 100 mls @ 100 mls/hr IVPB Q8H [facility] Last Admin: 07/14/17 02:13 Dose: 100 mls/hr Sodium Chloride (Sodium Chloride 0.9%) 1,000 mls @ 50 mls/hr IV .Q20H [facility] Last Admin: 07/13/17 17:43 Dose: 50 mls/hr Insulin Human Regular (Novolin R) 0 unit SC ACHS [facility] PRN Reason: Protocol Last Admin: 07/14/17 07:45 Dose: Not Given Lactic Acid (Lac-Hydrin 12% Lotion (225 G)) 2 gm EXT BID [facility] Last Admin: 07/13/17 17:43 Dose: 1 applic Losartan Potassium (Cozaar) 50 mg PO DAILY [facility] Last Admin: 07/13/17 09:41 Dose: 50 mg Metoprolol Succinate (Toprol Xl) 50 mg PO DAILY [facility] Last Admin: 07/13/17 09:41 Dose: 50 mg Rosuvastatin Calcium (Crestor) 10 mg PO HS [facility] Last Admin: 07/13/17 21:10 Dose: 10 mg - Labs Labs: 07/14/17 06:33 07/14/17 06:33 PT 15.6 SECONDS (9.7-12.2) H 07/14/17 06:33 INR 1.4 07/14/17 06:33 APTT 51 SECONDS (21-34) H D 07/14/17 01:57 - Constitutional Appears: Well, Non-toxic, No Acute Distress - Head Exam Head Exam: ATRAUMATIC - ENT Exam ENT Exam: Mucous Membranes Moist - Neck Exam Neck Exam: Full ROM - Respiratory Exam Respiratory Exam: Clear to Ausculation Bilateral - Cardiovascular Exam Cardiovascular Exam: Irregular Rhythm - GI/Abdominal Exam GI & Abdominal Exam: Normal Bowel Sounds - Exam External exam: NORMAL EXTERNAL EXAM - Back Exam Back Exam: CVA tenderness (L) - Neurological Exam Neurological Exam: Alert, Awake, Oriented x3 - Psychiatric Exam Psychiatric exam: Depressed - Skin Skin Exam: Normal Color Assessment and Plan - Assessment and Plan (Free Text) Assessment: 1. Afib rate is controlled 2. Upon the recommendation of Dr Pennington of Neurolgy, anticoagulation must be stopped. I will call and see if pt can get Watchman device to prevent addition strokes, 3. Although cxr showed congestion, lungs are clear. Continue meds. 4. BP is still high. Increase losartan to 50 bid and if still high, add norvasc.
[2017-07-14] MEDS: Metoprolol Succinate 50 mg XL Tab PO SCH (10:14)
[2017-07-14] MEDS: Desoximetasone 0.25% Cream(15 gm) TOP SCH ×2 (10:14→17:31)
[2017-07-14] MEDS: Ammonium Lactate 12% Lotion (225 g) EXT SCH ×2 (10:14→17:31)
[2017-07-14 23:10] VITALS: RESP 20
--- NOTE | 2017-07-15 06:28 | CP.PCM.PN ---
Subjective - Date & Time of Evaluation Date of Evaluation: 07/15/17 Time of Evaluation: 07:20 - Subjective Subjective: Medicine note for Dr. Lerma Patient seen and examined at bedside. Patient states that his vision has worsened slightly since yesterday. Patient had a headache overnight which was improved by Tylenol. Patient denies any other acute complaint at this time. Objective - Vital Signs/Intake and Output Vital Signs (last 24 hours): Temp Pulse Resp BP Pulse Ox 98.1 F 120 H 20 118/81 96 07/15/17 04:10 07/15/17 04:10 07/15/17 04:10 07/15/17 04:10 07/15/17 04:10 Intake and Output: 07/14/17 07/15/17 18:59 06:59 Intake Total 250 Output Total 350 Balance -100 - Medications Medications: Current Medications Acetaminophen (Tylenol 325mg Tab) 650 mg PO Q6 PRN PRN Reason: Pain, moderate (4-7) Last Admin: 07/15/17 05:35 Dose: 650 mg Desoximetasone (Topicort 0.25%) 0 ea TOP BID [facility] Last Admin: 07/14/17 17:31 Dose: 1 appl Docusate Sodium (Colace) 100 mg PO BID PRN PRN Reason: Constipation Furosemide (Lasix) 40 mg PO DAILY [facility] Last Admin: 07/14/17 10:12 Dose: 40 mg Hydrochlorothiazide (Hydrodiuril) 25 mg PO DAILY [facility] Last Admin: 07/14/17 10:13 Dose: 25 mg Insulin Human Regular (Novolin R) 0 unit SC ACHS [facility] PRN Reason: Protocol Last Admin: 07/14/17 22:07 Dose: Not Given Lactic Acid (Lac-Hydrin 12% Lotion (225 G)) 2 gm EXT BID [facility] Last Admin: 07/14/17 17:31 Dose: 1 applic Losartan Potassium (Cozaar) 50 mg PO BID [facility] Last Admin: 07/14/17 17:30 Dose: 50 mg Metoprolol Succinate (Toprol Xl) 50 mg PO DAILY [facility] Last Admin: 07/14/17 10:14 Dose: 50 mg Pantoprazole Sodium (Protonix Inj) 40 mg IVP DAILY [facility] Last Admin: 07/14/17 22:07 Dose: 40 mg Rosuvastatin Calcium (Crestor) 10 mg PO HS [facility] Last Admin: 07/14/17 22:07 Dose: 10 mg - Labs Labs: 07/14/17 06:33 07/14/17 06:33 PT 15.6 SECONDS (9.7-12.2) H 07/14/17 06:33 INR 1.4 07/14/17 06:33 APTT 51 SECONDS (21-34) H D 07/14/17 01:57 - Constitutional Appears: No Acute Distress - Head Exam Head Exam: ATRAUMATIC, NORMOCEPHALIC - Eye Exam Eye Exam: EOMI, PERRL - ENT Exam ENT Exam: Mucous Membranes Moist - Respiratory Exam Respiratory Exam: Clear to Ausculation Bilateral. absent: Rales, Rhonchi, Wheezes - Cardiovascular Exam Cardiovascular Exam: Irregular Rhythm, +S1, +S2 - GI/Abdominal Exam GI & Abdominal Exam: Soft, Normal Bowel Sounds. absent: Distended, Guarding, Tenderness - Extremities Exam Additional comments: bilateral edema with evidence of chronic venous stasis changes. improvement in appearance noted. - Neurological Exam Neurological Exam: Alert, Awake. absent: Oriented x3 (oriented to person and place only) Additional comments: continues to have left sided visual field deficits in both eyes - Psychiatric Exam Psychiatric exam: Flat Affect - Skin Skin Exam: Dry, Warm Assessment and Plan - Assessment and Plan (Free Text) Plan: Hemianopia Dr. Pennington neurology consult, help appreciated. Dr. Gomez cardiology consult, help appreciated. CT Head - No acute infarct Repeat Head CT on 07/12 demonstrated no hemorrhagic conversion Third repeat Head CT on 07/13 (ordered due to new onset headache in light of current sequelae) demonstrates confirmation of ischemic [employer] territory infarct. MRI brain w.o. contrast revealed trace petechial hemorrhages questioned at the medial anterior right occipital lobe with signal changes seen only in the gradient echo axial series. All anticoagulation has been stopped as a result of the hemorrhages. Repeat Head CT on 07/15 shows: Subtle high attenuation in the anterior superior occipital lobe could represent petechial hemorrhage. Per Dr. Pennington--no anticoagulation at this point including no aspirin History of CVA (cerebrovascular accident) Patient had two CVA, both with TPA admin No TPA for this current CVA since it met criteria for contraindication Was previously on warfarin but stopped due to bleeding s/p TURB Dr. Pennington recommended Eliquis but after speaking with Dr. Gomez, patient is amenable to Coumadin with routine follow ups Crestor 10 PO HS Unable to anticoagulate due to the hemorrhages seen on MRI on 07/13/[address] Gomez, watchman device is not indicated as it requires anticoagulation. Given the hemorrhage on MRI, he defers to Dr. Pennington to determine if the patient can at least use aspirin. He prefers Aspirin [address] Pennington--no anticoagulation at this point including no aspirin Hypertension Lasix 20 PO HS HCTZ 25 PO QD Metoprolol 50 PO QD Atrial Fibrillation Rate controlled Metoprolol 50 mg PO QD Unable to anticoagulate due to the hemorrhages Per Dr. Gomez, watchman device is not indicated as it requires anticoagulation. Given the hemorrhage on MRI, he defers to Dr. Pennington to determine if the patient can at least use aspirin. He prefers Aspirin 325 mg daily. Repeat Head CT on 07/15 shows: Subtle high attenuation in the anterior superior occipital lobe could represent petechial hemorrhage. Per Dr. Pennington--no anticoagulation at this point including no aspirin DVT Unable to anticoagulate at this time due to hemorrhage seen on MRI and follow up head CT Dr. Fan vascular surgery consulted for evaluation of IVC filter placement Patient is for OR later this afternoon for IVC filter given his history of poor compliance History of epistaxis ENT Dr. Valdez consulted, help appreciated Per Dr. Valdez, outpatient follow up since patient is not actively bleeding Leg pain Likely venous stasis vs infectious Podiatry ([facility]) Ancef 1 gm B1K--[id number] on 07/14/17 by podiatry Lac-Hydrin emollient and topical steroid Improvements noted Diabetes Newly diagnosed with hemoglobin A1c 7.7 Regular ISS low dose for now Prophylactic measure Heart Healthy Diet mod consistent carbs Protonix 40 mg IV daily SCDs c/i due to leg swelling Medication anticoagulation c/i due to petechial hemorrhage Colace Please note that this patient does NOT have CHF. Upon review of the previous echocardiogram on 05/04/17, patient does not have left ventricle dysfunction. This was confirmed with the client service representative by the primary attending. Case DW Dr. Florentin Romero PGY-1
[2017-07-15] MEDS: (Novolin R) Insulin Human Regular 100 units/ml vial SC SCH ×4 (07:37→21:47)
[2017-07-15 07:59] LABS: BASO % 0.5 % (0.0-2.0); EOS # 0.1 K/uL (0.0-0.7); EOS % 1.8 % (0.0-4.0); HEMATOCRIT 39.8 % (35.0-51.0); LYMPH # 0.7 K/uL (1.0-4.3); LYMPH % 11.6 % (20.0-40.0); MEAN CELL VOLUME 83.4 fL (80.0-94.0); MEAN CORPUSCULAR HEMOGLOBIN 29.3 pg (27.0-31.0); MEAN CORPUSCULAR HGB CONC 35.1 g/dL (33.0-37.0); MEAN PLATELET VOLUME 7.9 fL (7.2-11.7); NRBC % 0.2 % (0.0-2.0); RED CELL DISTRIBUTION WIDTH 15.7 % (11.5-14.5); WHITE BLOOD COUNT 6.4 K/uL (4.8-10.8)
[2017-07-15 08:20] LABS: ALB/GLOB RATIO 0.9 (1.0-2.1); ALKALINE PHOSPHATASE 55 U/L (38-126); ALT/SGPT 9 U/L (21-72); AST/SGOT 30 U/L (17-59); BILIRUBIN,TOTAL 1.5 mg/dL (0.2-1.3); BLOOD UREA NITROGEN 22 mg/dL (9-20); CALCIUM 8.4 mg/dl (8.6-10.4); CARBON DIOXIDE 30 mmol/L (22-30); CHLORIDE 95 mmol/L (98-107); GFR AFRICAN-AMERICAN > 60; GLUCOSE,RANDOM 103 mg/dL (75-110); POTASSIUM 3.8 mmol/L (3.6-5.2); SODIUM 132 mmol/L (132-148)
[2017-07-15] MEDS: Metoprolol Succinate 50 mg XL Tab PO SCH (09:40)
--- NOTE | 2017-07-15 10:09 | CP.PCM.PN ---
Subjective - Date & Time of Evaluation Date of Evaluation: 07/15/17 Time of Evaluation: 10:06 - Subjective Subjective: Pt is depressed, concerned that he cannot see. Afib rate is a little fast today prior to po beta sara Objective - Vital Signs/Intake and Output Vital Signs (last 24 hours): Temp Pulse Resp BP Pulse Ox 97.2 F L 88 20 145/87 97 07/15/17 08:18 07/15/17 08:18 07/15/17 08:18 07/15/17 09:40 07/15/17 08:18 Intake and Output: 07/15/17 07/15/17 06:59 18:59 Intake Total 118 Balance 118 - Medications Medications: Current Medications Acetaminophen (Tylenol 325mg Tab) 650 mg PO Q6 PRN PRN Reason: Pain, moderate (4-7) Last Admin: 07/15/17 05:35 Dose: 650 mg Desoximetasone (Topicort 0.25%) 0 ea TOP BID [facility] Last Admin: 07/14/17 17:31 Dose: 1 appl Docusate Sodium (Colace) 100 mg PO BID PRN PRN Reason: Constipation Furosemide (Lasix) 40 mg PO DAILY [facility] Last Admin: 07/15/17 09:40 Dose: 40 mg Hydrochlorothiazide (Hydrodiuril) 25 mg PO DAILY [facility] Last Admin: 07/15/17 09:41 Dose: 25 mg Insulin Human Regular (Novolin R) 0 unit SC ACHS [facility] PRN Reason: Protocol Last Admin: 07/15/17 07:37 Dose: Not Given Lactic Acid (Lac-Hydrin 12% Lotion (225 G)) 2 gm EXT BID [facility] Last Admin: 07/14/17 17:31 Dose: 1 applic Losartan Potassium (Cozaar) 50 mg PO BID [facility] Last Admin: 07/15/17 09:41 Dose: 50 mg Metoprolol Succinate (Toprol Xl) 50 mg PO DAILY [facility] Last Admin: 07/15/17 09:40 Dose: 50 mg Pantoprazole Sodium (Protonix Inj) 40 mg IVP DAILY [facility] Last Admin: 07/15/17 09:41 Dose: 40 mg Rosuvastatin Calcium (Crestor) 10 mg PO HS [facility] Last Admin: 07/14/17 22:07 Dose: 10 mg - Labs Labs: 07/15/17 07:47 07/15/17 07:47 PT 15.6 SECONDS (9.7-12.2) H 07/14/17 06:33 INR 1.4 07/14/17 06:33 APTT 51 SECONDS (21-34) H D 07/14/17 01:57 - Constitutional Appears: No Acute Distress, Chronically Ill - Head Exam Head Exam: ATRAUMATIC - Eye Exam Eye Exam: Normal appearance - ENT Exam ENT Exam: Mucous Membranes Moist - Neck Exam Neck Exam: Normal Inspection - Respiratory Exam Respiratory Exam: Clear to Ausculation Bilateral - Cardiovascular Exam Cardiovascular Exam: Irregular Rhythm - Extremities Exam Extremities Exam: Full ROM, Normal Inspection - Back Exam Back Exam: NORMAL INSPECTION - Neurological Exam Neurological Exam: Alert, Awake, Normal Gait - Psychiatric Exam Psychiatric exam: Depressed - Skin Skin Exam: Normal Color Assessment and Plan - Assessment and Plan (Free Text) Assessment: 1. Afib rate is a litte fast. Will give beta sara and if still fast later can increase dose 2. Moderately reduced LV EF: lungs are clear, no dyspnea 3. Pt is not a candidate for watchman as IV heparin is needed shayy-procedure and short term anticoagulation afterwards
[2017-07-15] MEDS: Desoximetasone 0.25% Cream(15 gm) TOP SCH ×2 (10:11→18:08)
[2017-07-15] MEDS: Ammonium Lactate 12% Lotion (225 g) EXT SCH ×2 (10:12→18:03)
--- NOTE | 2017-07-15 10:27 | CP.PCM.PN ---
Subjective - Date & Time of Evaluation Date of Evaluation: 07/15/17 Time of Evaluation: 10:24 - Subjective Subjective: Podiatry Progress note for Dr. Hatch 82 year old male was seen at bedside regarding discolored, edematous legs. He currently denies any pain to his legs and states that they are feeling better today, but admits that he is concerned about his blurred vision. Denies any n/v/ f/c/sob/cp Objective - Vital Signs/Intake and Output Vital Signs (last 24 hours): Temp Pulse Resp BP Pulse Ox 97.2 F L 88 20 145/87 97 07/15/17 08:18 07/15/17 08:18 07/15/17 08:18 07/15/17 09:40 07/15/17 08:18 Intake and Output: 07/15/17 07/15/17 06:59 18:59 Intake Total 118 Balance 118 - Medications Medications: Current Medications Acetaminophen (Tylenol 325mg Tab) 650 mg PO Q6 PRN PRN Reason: Pain, moderate (4-7) Last Admin: 07/15/17 05:35 Dose: 650 mg Desoximetasone (Topicort 0.25%) 0 ea TOP BID [facility] Last Admin: 07/14/17 17:31 Dose: 1 appl Docusate Sodium (Colace) 100 mg PO BID PRN PRN Reason: Constipation Furosemide (Lasix) 40 mg PO DAILY [facility] Last Admin: 07/15/17 09:40 Dose: 40 mg Hydrochlorothiazide (Hydrodiuril) 25 mg PO DAILY [facility] Last Admin: 07/15/17 09:41 Dose: 25 mg Insulin Human Regular (Novolin R) 0 unit SC ACHS [facility] PRN Reason: Protocol Last Admin: 07/15/17 07:37 Dose: Not Given Lactic Acid (Lac-Hydrin 12% Lotion (225 G)) 2 gm EXT BID [facility] Last Admin: 07/14/17 17:31 Dose: 1 applic Losartan Potassium (Cozaar) 50 mg PO BID [facility] Last Admin: 07/15/17 09:41 Dose: 50 mg Metoprolol Succinate (Toprol Xl) 50 mg PO DAILY [facility] Last Admin: 07/15/17 09:40 Dose: 50 mg Pantoprazole Sodium (Protonix Inj) 40 mg IVP DAILY [facility] Last Admin: 07/15/17 09:41 Dose: 40 mg Rosuvastatin Calcium (Crestor) 10 mg PO HS [facility] Last Admin: 07/14/17 22:07 Dose: 10 mg - Labs Labs: 07/15/17 07:47 07/15/17 07:47 PT 15.6 SECONDS (9.7-12.2) H 07/14/17 06:33 INR 1.4 07/14/17 06:33 APTT 51 SECONDS (21-34) H D 07/14/17 01:57 - Constitutional Appears: Non-toxic, No Acute Distress - Extremities Exam Additional comments: Lower extremity focused exam: Vasc: DP and PT pulses non-palpable due to pitting edema. Skin temperature warm to warm from proximal to distal, symmetric b/l. CFT > 3 seconds to all digits. Neuro: Gross sensation intact Ortho:No tenderness on compression of calf b/l. Derm: Nails are thickened, elongated, dystrophic 1-10. Webspaces are clean, dry , intact. No open wounds noted. Legs from tibial tuberosity to medial malleolus circumferentally are red and dry-improving. - Neurological Exam Neurological Exam: Alert, Awake, Oriented x3 - Psychiatric Exam Psychiatric exam: Normal Affect, Normal Mood Assessment and Plan - Assessment and Plan (Free Text) Assessment: 82 year old male with venous stasis b/l lower extremity Plan: patient examined and evaluated discussed with attending Dr. Holden dillon, chart, vitals reviewed;afebrile, WBC 6.4 Lac-hydrin and topicort to be applied to b/l LE daily nails 1-10 sharply debrided in thickness and in length without incident podiatry will continue to follow patient while in house
--- NOTE | 2017-07-15 14:05 | PN ---
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 PHYSICAL EXAMINATION: VITAL SIGNS: Blood pressure 118/81, mean arterial pressure of 93, respiratory rate 16, temperature 98.1, pulse rate 120. NEUROLOGICAL: The patient is sleeping, complaining of intermittent headache. Holding off anticoagulation because of microhemorrhage in the MRI of the brain. The patient's examination, which is unchanged. LABORATORY DATA: CT of the head to be done to rule out any acute hemorrhagic process; if it is not, the patient can resume oral anticoagulation as I recommended before. Young Pennington MD
--- NOTE | 2017-07-15 14:07 | RAD ---
PROCEDURE: HISTORY: Fluoroscopy for IVC filter placement COMPARISON: None TECHNIQUE: Total fluoroscopic time utilized during the procedure: 129.9 seconds. Total dose 0.56637 mGy cm squared FINDINGS: Submitted images from the current procedure: 9 Please refer to the physician's notes performing the procedure. IMPRESSION: Less than 1 hour fluoroscopic time utilized during performance of the procedure
--- NOTE | 2017-07-15 14:54 | CT ---
PROCEDURE: CT HEAD WITHOUT CONTRAST. HISTORY: micro bleed as per mri - COMPARISON: MRI brain without contrast from 07/13/[address] from 07/13/2017 as well as 07/12/2017 TECHNIQUE: Axial computed tomography images were obtained through the head/brain without intravenous contrast. Radiation dose: Total exam DLP = 1134.15 mGy-cm. This CT exam was performed using one or more of the following dose reduction techniques: Automated exposure control, adjustment of the mA and/or kV according to patient size, and/or use of iterative reconstruction technique. FINDINGS: HEMORRHAGE: No intracranial hemorrhage. BRAIN: There is redemonstration of an early subacute infarction in the right occipital lobe without mass effect or midline shift. There is subtle high attenuation in the anterior superior occipital lobe (series 2, image 18 which may represent small hemorrhage. There is no extra-axial fluid collection. VENTRICLES: There is mild age-related global parenchymal volume loss and proportionate enlargement of the ventricles and cortical sulci. CALVARIUM: The skull base and calvarium are normal. PARANASAL SINUSES: Predominantly clear. MASTOID AIR CELLS: Predominantly clear. OTHER FINDINGS: None. IMPRESSION: 1. No acute intracranial abnormality. 2. Early subacute infarction in the right posterior cerebral artery territory involving the occipital lobe. Subtle high attenuation in the anterior superior occipital lobe could represent petechial hemorrhage.
--- NOTE | 2017-07-15 20:02 | CON ---
DATE: REASON FOR THE CONSULTATION: Abrupt loss of vision on his left side. From neurological point of view, I was called in to evaluate him for further management. HISTORY OF PRESENT ILLNESS: Mr. Jhonny Salmeron is an 82-year-old right-handed [place] male, who has been seen by me in previous transient ischemic attack, being undergone t-PA in April; following this, went to rehab. He was stabilized. During the admission, the patient was found to have cardiac arrhythmias (atrial fibrillation), has been placed on Eliquis. The patient was discharged with Eliquis and I followed him as outpatient. He was on Eliquis at that point. However, the Eliquis was not followed by patient. At this time, around 7 o'clock, the patient lost his vision on his left side, immediately told his brother and brother brought him to the [facility] within the therapeutic window period for t-PA. The patient was examined. The patient did have a CAT scan, and since he did have stroke 2 months prior to this admission, being treated with the t-PA, and he had bladder cancer with hematuria in the past, he was out of inclusion criteria for t-PA. He denies any new complaints besides his left side vision loss. However, he feels that it is somewhat improved. He also got a problem in speech, and that speech has also improved at present. PAST MEDICAL HISTORY: Atrial fibrillation, coronary artery disease, cardiac arrhythmia, CHF, GERD, hypertension, bladder cancer, and stroke. PERSONAL HISTORY: Denies smoking or alcohol use. ALLERGIES: NO KNOWN ALLERGIES. REVIEW OF SYSTEMS: Twelve-point system being reviewed. From neuro, new vision loss. MEDICATIONS: Aspirin, Catapres, Colace, Crestor, HydroDIURIL, Lasix, metoprolol. PHYSICAL EXAMINATION: VITAL SIGNS: Blood pressure 122/74, mean arterial pressure of 90, respiratory rate 16, temperature afebrile. NECK: Supple. No carotid bruits. HEART: Sounds irregularly irregular. EXTREMITIES: Left leg externally rotated. NEUROLOGIC EXAMINATION: MENTAL STATUS EXAMINATION: He is awake, alert, oriented to person, place, and time. Speech is clear. Naming, repetition, fluency, comprehension intact. No dysarthria. No apraxia. No agnosia. CRANIAL NERVE EXAMINATION: Visual field, dense left homonymous hemianopsia. Pupils are reactive to light. Extraocular movement markedly decreased in all direction. No facial sensory deficit, mild facial flattening of the nasolabial fold on his left side. MOTOR EXAMINATION: On an outstretched hand with eyes closed, mild drift noted on the left arm, incurving of the fingers. Left leg is externally rotated. DEEP TENDON REFLEXES: Biceps, brachialis, triceps are trace; both knees are absent; both ankles are absent. Plantars are upgoing on both sides. SENSORY EXAMINATION: Responds to pain symmetrically on both sides. No extinction to double simultaneous stimuli. COORDINATION: [place]-vebb-crhlnc test intact on the right side. WORKUP: CT of the head being reviewed, no acute pathology is noted. Mild microangiopathic changes from his previous stroke and small vessel disease again noted. EKG: Atrial fibrillation. BLOOD WORKUP: WBC 8.1, hemoglobin 13.3, hematocrit 38.6, platelets 180. PT 13.6, INR 1.2, PTT 32. Sodium 138, potassium 4.9, chloride 101, bicarbonate 33, BUN 19, creatinine 1.8. Calcium 8.3, total bilirubin 1.4, cholesterol 129, LDL 66, HDL 50. CONCLUSIONS: 1. Mr. Jhonny Salmeron has been presenting with abrupt onset of his left vision loss. The neurological exam has been consistent with right parieto-occipital dysfunction manifesting with left homonymous hemianopsia, mild incurving of hand on outstretched hand with eyes closed. Left leg is externally rotated.This is may be old mixed with his new left H/H The plantars are upgoing. Though the patient came within the window period, since he had t-PA within two months period, he was excluded from the t-PA administration, and also moreover, he was having bladder cancer with hematuria in the past. 2. 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 RECOMMENDATIONS: 1. I agree with aspirin. 2. The patient should be on Eliquis, which was started today. 3. Low dose statin and angiotensin receptor blockers to stabilize neurovascular endothelium. The patient should get MRI of the brain to rule out acute stroke process. Continue hydration and keep the mean artery pressure around 90 to 100. The patient should be followed by welder [facility] and die as well during this hospitalization. Young Pennington MD [facility]
[2017-07-15] MEDS ORDERED: Metoprolol Succinate 50 mg XL Tab PO SCH (23:23)
[2017-07-16 06:40] LABS: BASO % 0.5 % (0.0-2.0); EOS # 0.1 K/uL (0.0-0.7); EOS % 2.1 % (0.0-4.0); HEMATOCRIT 40.9 % (35.0-51.0); LYMPH # 0.9 K/uL (1.0-4.3); MEAN CELL VOLUME 83.1 fL (80.0-94.0); MEAN CORPUSCULAR HEMOGLOBIN 29.6 pg (27.0-31.0); MEAN CORPUSCULAR HGB CONC 35.5 g/dL (33.0-37.0); MEAN PLATELET VOLUME 7.6 fL (7.2-11.7); MONO % 13.8 % (0.0-10.0); NRBC % 0.2 % (0.0-2.0); RED CELL DISTRIBUTION WIDTH 15.8 % (11.5-14.5); WHITE BLOOD COUNT 7.1 K/uL (4.8-10.8)
[2017-07-16] MEDS: (Novolin R) Insulin Human Regular 100 units/ml vial SC SCH ×4 (07:47→21:33)
[2017-07-16 08:27] VITALS: O2SAT 97
[2017-07-16 08:51] LABS: ALB/GLOB RATIO 0.9 (1.0-2.1); ALKALINE PHOSPHATASE 56 U/L (38-126); ALT/SGPT 15 U/L (21-72); AST/SGOT 39 U/L (17-59); BILIRUBIN,TOTAL 1.5 mg/dL (0.2-1.3); BLOOD UREA NITROGEN 26 mg/dL (9-20); CALCIUM 8.2 mg/dl (8.6-10.4); CARBON DIOXIDE 34 mmol/L (22-30); CHLORIDE 95 mmol/L (98-107); GFR AFRICAN-AMERICAN > 60; GLUCOSE,RANDOM 95 mg/dL (75-110); POTASSIUM 3.7 mmol/L (3.6-5.2); SODIUM 134 mmol/L (132-148); TOTAL PROTEIN 7.8 g/dL (6.3-8.3)
[2017-07-16] MEDS: Desoximetasone 0.25% Cream(15 gm) TOP SCH ×2 (10:30→19:00)
[2017-07-16] MEDS: Ammonium Lactate 12% Lotion (225 g) EXT SCH ×2 (11:00→18:22)
--- NOTE | 2017-07-16 11:04 | CP.PCM.PN ---
Subjective - Date & Time of Evaluation Date of Evaluation: 07/16/17 Time of Evaluation: 11:00 - Subjective Subjective: Vision a little better, headache a little better. Objective - Vital Signs/Intake and Output Vital Signs (last 24 hours): Temp Pulse Resp BP Pulse Ox 98.0 F 106 H 20 116/64 97 07/16/17 08:26 07/16/17 08:26 07/16/17 08:26 07/16/17 08:26 07/16/17 08:26 - Medications Medications: Current Medications Acetaminophen (Tylenol 325mg Tab) 650 mg PO Q6 PRN PRN Reason: Pain, moderate (4-7) Last Admin: 07/15/17 15:11 Dose: 650 mg Desoximetasone (Topicort 0.25%) 0 ea TOP BID [facility] Last Admin: 07/15/17 18:08 Dose: 1 appl Docusate Sodium (Colace) 100 mg PO BID PRN PRN Reason: Constipation Furosemide (Lasix) 40 mg PO DAILY [facility] Last Admin: 07/15/17 09:40 Dose: 40 mg Hydrochlorothiazide (Hydrodiuril) 25 mg PO DAILY [facility] Last Admin: 07/15/17 09:41 Dose: 25 mg Insulin Human Regular (Novolin R) 0 unit SC ACHS DESIREE PRN Reason: Protocol Last Admin: 07/16/17 07:47 Dose: Not Given Lactic Acid (Lac-Hydrin 12% Lotion (225 G)) 2 gm EXT BID [facility] Last Admin: 07/15/17 18:03 Dose: 1 applic Losartan Potassium (Cozaar) 50 mg PO BID [facility] Last Admin: 07/15/17 18:05 Dose: 50 mg Metoprolol Succinate (Toprol Xl) 100 mg PO DAILY [facility] Metoprolol Succinate (Toprol Xl) 12.5 mg PO ONCE ONE Stop: 07/16/17 11:31 Pantoprazole Sodium (Protonix Inj) 40 mg IVP DAILY [facility] Last Admin: 07/15/17 09:41 Dose: 40 mg Rosuvastatin Calcium (Crestor) 10 mg PO HS [facility] Last Admin: 07/15/17 21:28 Dose: 10 mg - Labs Labs: 07/16/17 06:25 07/16/17 06:25 PT 15.6 SECONDS (9.7-12.2) H 12/20/17 06:33 INR 1.4 07/14/17 06:33 APTT 51 SECONDS (21-34) H D 07/14/17 01:57 - Constitutional Appears: Well - Head Exam Head Exam: ATRAUMATIC - Eye Exam Eye Exam: EOMI - ENT Exam ENT Exam: Mucous Membranes Moist - Neck Exam Neck Exam: Full ROM - Respiratory Exam Respiratory Exam: Clear to Ausculation Bilateral - Cardiovascular Exam Cardiovascular Exam: Irregular Rhythm - GI/Abdominal Exam GI & Abdominal Exam: Normal Bowel Sounds - Extremities Exam Extremities Exam: Full ROM - Back Exam Back Exam: NORMAL INSPECTION - Neurological Exam Neurological Exam: Altered, Awake, Normal Gait - Psychiatric Exam Psychiatric exam: Depressed, Normal Mood - Skin Skin Exam: Normal Color Assessment and Plan - Assessment and Plan (Free Text) Assessment: 1. afib rate is betrer. 2. no clinical chf: moderately reduced LV EF 3. off anticoagulation as per neuro: full anticoagulation is advised wjhen cleared by Dr Pennington 4. DVT: has filter
[2017-07-16] MEDS ORDERED: Metoprolol Succinate 100 mg XL Tab PO ONE (11:15)
[2017-07-16] MEDS ORDERED: Metoprolol Succinate 12.5 mg XL PO ONE (11:30)
--- NOTE | 2017-07-16 12:27 | PN ---
DATE: 07/16/2017 NEUROLOGIC PROBLEM: Cardioembolic stroke manifesting with right medial occipital lobe infarct, manifesting with left homonymous hemianopsia. PHYSICAL EXAMINATION: VITAL SIGNS: Blood pressure 133/85, mean arterial pressure of 110, respiratory rate 18, temperature 98.3 with a pulse rate, and atrial fibrillation with a rate of 104. GENERAL: The patient is arousable, complaining of mild headache, which may not require to take any medication for the headache as per him. HEENT: Vision, which is unchanged compared with left homonymous hemianopsia. The rest of the examination, which is unchanged compared with my previous examination. IMAGING: As I stated before, the CT of the head also consistent with the MRI finding of microhemorrhage over the ischemic region in the right occipital lobe. IMPRESSION AND PLAN: Anticoagulation has been on hold because of the hemorrhage. The patient is in critical stage at present. However, we cannot anticoagulate because of the hemorrhaging insult at present. When medically stable, 4 weeks from now, the patient can be started low dose of aspirin and Eliquis can be resumed with a lower dose and when he is stable, and he could be increased the dose to therapeutic dose as 5 mg twice a day, maybe 3 weeks from now. In the meantime, the patient should be out of the bed and physical therapy should be entertained and UCHE stockings while he is in the bed. Young Pennington MD
--- NOTE | 2017-07-16 12:45 | CP.PCM.PN ---
Subjective - Date & Time of Evaluation Date of Evaluation: 07/16/17 Time of Evaluation: 12:44 - Subjective Subjective: Podiatry Progress note for Dr. Hatch 82 year old male was seen at bedside regarding discolored, edematous legs. He states that his legs feel good but is concerned as each day his vision gets worse. Denies any n/v/f/c/sob/cp. Objective - Vital Signs/Intake and Output Vital Signs (last 24 hours): Temp Pulse Resp BP Pulse Ox 98.0 F 106 H 20 117/78 97 07/16/17 08:26 07/16/17 08:26 07/16/17 08:26 07/16/17 11:00 07/16/17 08:26 - Medications Medications: Current Medications Acetaminophen (Tylenol 325mg Tab) 650 mg PO Q6 PRN PRN Reason: Pain, moderate (4-7) Last Admin: 07/16/17 11:00 Dose: 650 mg Desoximetasone (Topicort 0.25%) 0 ea TOP BID [facility] Last Admin: 07/15/17 18:08 Dose: 1 appl Docusate Sodium (Colace) 100 mg PO BID PRN PRN Reason: Constipation Furosemide (Lasix) 40 mg PO DAILY [facility] Last Admin: 07/16/17 11:00 Dose: 40 mg Hydrochlorothiazide (Hydrodiuril) 25 mg PO DAILY [facility] Last Admin: 07/16/17 11:17 Dose: Not Given Insulin Human Regular (Novolin R) 0 unit SC ACHS DESIREE PRN Reason: Protocol Last Admin: 07/16/17 07:47 Dose: Not Given Lactic Acid (Lac-Hydrin 12% Lotion (225 G)) 2 gm EXT BID [facility] Last Admin: 07/16/17 11:00 Dose: 1 applic Losartan Potassium (Cozaar) 50 mg PO BID [facility] Last Admin: 07/16/17 11:00 Dose: 50 mg Metoprolol Succinate (Toprol Xl) 100 mg PO DAILY [facility] Pantoprazole Sodium (Protonix Inj) 40 mg IVP DAILY [facility] Last Admin: 07/16/17 11:00 Dose: 40 mg Rosuvastatin Calcium (Crestor) 10 mg PO HS [facility] Last Admin: 07/15/17 21:28 Dose: 10 mg - Labs Labs: 07/16/17 06:25 07/16/17 06:25 PT 15.6 SECONDS (9.7-12.2) H 07/14/17 06:33 INR 1.4 07/14/17 06:33 APTT 51 SECONDS (21-34) H D 07/14/17 01:57 - Constitutional Appears: Non-toxic, No Acute Distress - Extremities Exam Additional comments: Lower extremity focused exam: Vasc: DP and PT pulses non-palpable due to pitting edema. Skin temperature warm to warm from proximal to distal, symmetric b/l. CFT > 3 seconds to all digits. Neuro: Gross sensation intact Ortho: No tenderness on compression of calf b/l. Derm: Nails are trimmed to a hygienic length. Webspaces are clean, dry, intact. No open wounds noted. Legs from tibial tuberosity to medial malleolus circumferentally are darkly discolored and dry-improving. - Neurological Exam Neurological Exam: Alert, Awake, Oriented x3 - Psychiatric Exam Psychiatric exam: Normal Affect, Normal Mood Assessment and Plan - Assessment and Plan (Free Text) Assessment: 82 year old male with venous stasis b/l lower extremity Plan: patient examined and evaluated discussed with attending Dr. Hatch lab, chart, vitals reviewed;afebrile, WBC 7.1 Lac-hydrin and topicort to be applied to b/l LE daily podiatry will continue to follow patient while in house patient to follow up with Dr. Hatch upon discharge
--- NOTE | 2017-07-16 16:34 | CP.PCM.DIS ---
Provider - Provider Date of Admission: 07/11/17 23:28 Attending physician: Christel Lerma DO Consults: Neuro: Gorge Cardio: Patricia Vascular: Meng ENT: José Miguel Palliative Care Time Spent in preparation of Discharge (in minutes): 32 Hospital Course - Lab Results Lab Results: Most Recent Lab Values WBC 7.1 K/uL (4.8-10.8) 07/16/17 06:25 RBC 4.92 Mil/uL (4.40-5.90) 07/16/17 06:25 Hgb 14.5 g/dL (12.0-18.0) 07/16/17 06:25 Hct 40.9 % (35.0-51.0) 07/16/17 06:25 MCV 83.1 fL (80.0-94.0) 07/16/17 06:25 MCH 29.6 pg (27.0-31.0) 07/16/17 06:25 MCHC 35.5 g/dL (33.0-37.0) 07/16/17 06:25 RDW 15.8 % (11.5-14.5) H 07/16/17 06:25 Plt Count 193 K/uL (130-400) 07/16/17 06:25 MPV 7.6 fL (7.2-11.7) 07/16/17 06:25 Neut % (Auto) 71.6 % (50.0-75.0) 07/16/17 06:25 Lymph % (Auto) 12.0 % (20.0-40.0) L 07/16/17 06:25 [place] % (Auto) 13.8 % (0.0-10.0) H 07/16/17 06:25 Eos % (Auto) 2.1 % (0.0-4.0) 07/16/17 06:25 Baso % (Auto) 0.5 % (0.0-2.0) 07/16/17 06:25 Neut # 5.1 K/uL (1.8-7.0) 07/16/17 06:25 Lymph # 0.9 K/uL (1.0-4.3) L 07/16/17 06:25 [place] # 1.0 K/uL (0.0-0.8) H 07/16/17 06:25 Eos # 0.1 K/uL (0.0-0.7) 07/16/17 06:25 Baso # 0.0 K/uL (0.0-0.2) 07/16/17 06:25 Neutrophils % (Manual) 75 % (50-75) 07/14/17 06:33 Lymphocytes % (Manual) 8 % (20-40) L 07/14/17 06:33 Reactive Lymphs % 1 % (0-0) H 07/11/17 22:53 Monocytes % (Manual) 16 % (0-10) H 07/14/17 06:33 Eosinophils % (Manual) 1 % (0-4) 07/14/17 06:33 Platelet Estimate Normal (NORMAL) 07/14/17 06:33 Anisocytosis (manual) Slight 07/14/17 06:33 PT 15.6 SECONDS (9.7-12.2) H 07/14/17 06:33 INR 1.4 07/14/17 06:33 APTT 51 SECONDS (21-34) H D 07/14/17 01:57 Sodium 134 mmol/L (132-148) 07/16/17 06:25 Potassium 3.7 mmol/L (3.6-5.2) 07/16/17 06:25 Chloride 95 mmol/L (98-107) L 07/16/17 06:25 Carbon Dioxide 34 mmol/L (22-30) H 07/16/17 06:25 Anion Gap 9 (10-20) L 07/16/17 06:25 BUN 26 mg/dL (9-20) H 07/16/17 06:25 Creatinine 1.2 mg/dL (0.8-1.5) 07/16/17 06:25 Est GFR ( Amer) > 60 07/16/17 06:25 Est GFR (Non-Af Amer) 58 07/16/17 06:25 POC Glucose (mg/dL) 114 mg/dL (65-110) H 07/16/17 11:17 Random Glucose 95 mg/dL (75-110) 07/16/17 06:25 Hemoglobin A1c 5.3 % (4.2-6.5) 07/11/17 22:57 Calcium 8.2 mg/dl (8.6-10.4) L 07/16/17 06:25 Total Bilirubin 1.5 mg/dL (0.2-1.3) H 07/16/17 06:25 AST 39 U/L (17-59) 07/16/17 06:25 ALT 15 U/L (21-72) L D 07/16/17 06:25 Alkaline Phosphatase 56 U/L (38-126) 07/16/17 06:25 Total Creatine Kinase 42 U/L (55-170) L 07/12/17 02:16 CK-MB (Mass) 1.43 ng/mL (0.0-3.38) 07/12/17 02:16 Troponin I 0.0140 ng/mL (0.00-0.120) 07/12/17 02:16 Total Protein 7.8 g/dL (6.3-8.3) 07/16/17 06:25 Albumin 3.6 g/dL (3.5-5.0) 07/16/17 06:25 Globulin 4.2 gm/dL (2.2-3.9) H 07/16/17 06:25 Albumin/Globulin Ratio 0.9 (1.0-2.1) L 07/16/17 06:25 Triglycerides 61 mg/dL (0-149) D 07/11/17 22:53 Cholesterol 129 mg/dL (0-199) 07/11/17 22:53 LDL Cholesterol Direct 66 mg/dL (0-129) 07/11/17 22:53 HDL Cholesterol 50 mg/dL (30-70) 07/11/17 22:53 Blood Type A NEGATIVE 07/11/17 23:05 Antibody Screen Negative 07/11/17 23:05 - Hospital Course Hospital Course: Patient is a 82M with a PMH of 2 CVA both treated with TPA, bladder cancer, A. fibrillation, HTN, GERD, CHF and CAD who presents to the ED after he was watching TV and all of a sudden he started having blurry vision in his L. eye. He States that the TV became blurry and it was difficult to see his hand. He states that his vision is still blurry but has improved since its onset. He complains of prior episodes but this is worse. He denies any syncope, tingling, numbness, weakness or headache. Patient was admitted for Left homonymouos hemianopsia. Neurology was consulted, Dr Pennington. CT on admission showed no acute infarct. Patient was not a candidate for TPA because he recently recieved TPA in April. CT head was repeated because the patient had a nose bleed and was complaining of headache. This repeat CT demonstrated no hemorrhagic conversion. Third repeat Head CT on 07/13 (ordered due to new onset headache in light of current sequelae) demonstrates confirmation of ischemic PERSONNEL ADVISER territory infarct. MRI brain w.o. contrast revealed trace petechial hemorrhages questioned at the medial anterior right occipital lobe with signal changes seen only in the gradient echo axial series. All anticoagulation was stopped as a result of hemorrhages. A fourth CT head confirmed and showed Subtle high attenuation in the anterior superior occipital lobe could represent petechial hemorrhage. Per Dr Pennington, no anticoagulation, including aspirin for a minimum of 4 weeks. Patient has a history of Chronic Afib. Dr Gomez was consulted and following. He recommended to increase Toprol XL to 100mg daily. He deferred to neurology for anticoagulation recommendation in the setting of petechial hemorrhage. Venous doppler (07/12/17): partial acute deep vein thrombosis of the right popliteal vein. No evidence of deep or superficial vein thrombosis of the left lower extremity. Valvular incompetence noted of the left great saphenous vein. Vascular surgery was consulted for IVC filter placement. Patient tolerated the procedure well. Podiatry was consulted for venous stasis skin changes. On day of discharge, patient was doing well. Still reports having blurry vision. Patient was medically stable for discharge to acute rehab in [place]. Prior to leaving the hospital, patient was concerned and did not want to go to acute rehab. He stated that he wanted to go to subacute so that he could have visitors. Explained the patient and his family the benefits of going to Acute rehab and explained which services would be provided to him. Upon discussion with his family members, patient was ammendable to going to Acute rehab. Medications were reconciled. All questions and concerns were addressed. Please note that this patient does NOT have CHF. Upon review of the previous echocardiogram on 05/04/17, patient does not have left ventricle dysfunction. This was confirmed with the it operations analyst by the primary attending. Hemianopia (stable) Dr. Pennington neurology consult, help appreciated. Dr. Gomez cardiology consult, help appreciated. CT Head - No acute infarct Repeat Head CT on 07/12 demonstrated no hemorrhagic conversion Third repeat Head CT on 07/13 (ordered due to new onset headache in light of current sequelae) demonstrates confirmation of ischemic PERSONNEL ADVISER territory infarct. MRI brain w.o. contrast revealed trace petechial hemorrhages questioned at the medial anterior right occipital lobe with signal changes seen only in the gradient echo axial series. All anticoagulation has been stopped as a result of the hemorrhages. Repeat Head CT on 07/15 shows: Subtle high attenuation in the anterior superior occipital lobe could represent petechial hemorrhage. Per Dr. Pennington--no anticoagulation at this point including no aspirin History of CVA (cerebrovascular accident) (Stable) Patient had two CVA, both with TPA admin No TPA for this current CVA since it met criteria for contraindication Was previously on warfarin but stopped due to bleeding s/p TURB Dr. Pennington recommended Eliquis but after speaking with Dr. Gomez, patient is amenable to Coumadin with routine follow ups Crestor 10 PO HS Unable to anticoagulate due to the hemorrhages seen on MRI on 07/13/[address] Gomez, watchman device is not indicated as it requires anticoagulation. Given the hemorrhage on MRI, he defers to Dr. Pennington to determine if the patient can at least use aspirin. He prefers Aspirin [address] Pennington--no anticoagulation at this point including no aspirin Hypertension (chronic) Lasix 20 PO HS HCTZ 25 PO QD Metoprolol 50 PO QD Atrial Fibrillation (chronic) Rate controlled Metoprolol 50 mg PO QD Unable to anticoagulate due to the hemorrhages Per Dr. Gomez, watchman device is not indicated as it requires anticoagulation. Given the hemorrhage on MRI, he defers to Dr. Pennington to determine if the patient can at least use aspirin. He prefers Aspirin 325 mg daily. Repeat Head CT on 07/15 shows: Subtle high attenuation in the anterior superior occipital lobe could represent petechial hemorrhage. Per Dr. Pennington--no anticoagulation at this point including no aspirin DVT (acute) Unable to anticoagulate at this time due to hemorrhage seen on MRI and follow up head CT Dr. Fan vascular surgery consulted for evaluation of IVC filter placement Patient is for OR later this afternoon for IVC filter given his history of poor compliance History of epistaxis (resolved) ENT Dr. Valdez consulted, help appreciated Per Dr. Valdez, outpatient follow up since patient is not actively bleeding Leg pain (stable) Likely venous stasis vs infectious Podiatry ([place]) Ancef 1 gm R2F--[id number] on 07/14/17 by podiatry Lac-Hydrin emollient and topical steroid Improvements noted Prophylactic measure Heart Healthy Diet mod consistent carbs Protonix 40 mg IV daily SCDs c/i due to leg swelling Medication anticoagulation c/i due to petechial hemorrhage Colace Discharge Medications: Lasix 40mg PO daily HCTZ 25mg PO daily Cozaar 50mg PO daily Toprol XL 100mg PO daily Crestor 20mg PO daily Discharge Exam - Head Exam Head Exam: ATRAUMATIC - Eye Exam Eye Exam: EOMI, Normal appearance - ENT Exam ENT Exam: Mucous Membranes Moist - Respiratory Exam Respiratory Exam: Clear to PA & Lateral, NORMAL BREATHING PATTERN. absent: Rales, Rhonchi, Wheezes - Cardiovascular Exam Cardiovascular Exam: Irregular Rhythm, +S1, +S2 - GI/Abdominal Exam GI & Abdominal Exam: Normal Bowel Sounds, Tenderness. absent: Guarding, Rebound , Rigid - Rectal Exam Rectal Exam: Deferred - Extremities Exam Additional comments: Venous stasis skin changes - Neurological Exam Neurological exam: Alert, Oriented x3 - Psychiatric Exam Psychiatric exam: Normal Affect, Normal Mood - Skin Skin Exam: Normal Color, Warm Discharge Plan - Follow Up Plan Condition: GUARDED Disposition: HOME/ ROUTINE Instructions: Heart Failure (DC), Heart Healthy Diet (DC), Inferior Vena Cava Filter Placement (DC), Stroke (DC) Referrals: Selwyn Gomez MD [Staff Provider] - Young Pennington MD [Staff Provider] - Clinical Quality Measures - CQM - Stroke Antithrombotic Prescribed: Medical Contraindication Present Contranindication/Reason for not providing: Risk for Bleeding Anticoagulation Prescribed for Atrial Flutter, Atrial Fibrillation and History of:: Medical Contraindication Present Contranindication/Reason for not providing: Risk for Bleeding Statin prescribed: Yes - CQM - VTE Did patient receive overlap therapy during hosptialization?: No If no, please select a reason why?: Risk of Bleeding Surgical Overlap Therapy Reason during Hospitalization: IVC filter Medical Reason for Overlap Therapy during Hospitalization: DVT Is patient being discharged on overlap therapy?: No If no, please select a reason why:: Risk of Bleeding
[2017-07-16 16:37] VITALS: PULSE 93; TEMP 97.5
[2017-07-16 18:12] VITALS: BP 117/87
--- NOTE | 2017-07-16 18:38 | CP.PCM.PN ---
Subjective - Date & Time of Evaluation Date of Evaluation: 07/16/17 Time of Evaluation: 09:30 - Subjective Subjective: Medicine Service Progress Note: Hospitalist Service Patient seen and examined at bedside. Per nursing no acute events. Patient is doing well, offers no complaints at this time. Patient states that he is still having blurry vision. Denies headaches, dizziness, cp, palpitations, sob, abdominal pain, urinary symptoms, changes in bowel habits. Objective - Vital Signs/Intake and Output Vital Signs (last 24 hours): Temp Pulse Resp BP Pulse Ox 97.5 F L 93 H 20 117/87 97 07/16/17 15:20 07/16/17 15:20 07/16/17 15:20 07/16/17 18:11 07/16/17 15:20 - Medications Medications: Current Medications Acetaminophen (Tylenol 325mg Tab) 650 mg PO Q6 PRN PRN Reason: Pain, moderate (4-7) Last Admin: 07/16/17 11:00 Dose: 650 mg Desoximetasone (Topicort 0.25%) 0 ea TOP BID [facility] Last Admin: 07/16/17 10:30 Dose: Not Given Docusate Sodium (Colace) 100 mg PO BID PRN PRN Reason: Constipation Furosemide (Lasix) 40 mg PO DAILY [facility] Last Admin: 07/16/17 11:00 Dose: 40 mg Hydrochlorothiazide (Hydrodiuril) 25 mg PO DAILY [facility] Last Admin: 07/16/17 11:17 Dose: Not Given Insulin Human Regular (Novolin R) 0 unit SC ACHS DESIREE PRN Reason: Protocol Last Admin: 07/16/17 17:54 Dose: Not Given Lactic Acid (Lac-Hydrin 12% Lotion (225 G)) 2 gm EXT BID [facility] Last Admin: 07/16/17 18:22 Dose: 1 applic Losartan Potassium (Cozaar) 50 mg PO BID [facility] Last Admin: 07/16/17 18:20 Dose: 50 mg Metoprolol Succinate (Toprol Xl) 100 mg PO DAILY [facility] Pantoprazole Sodium (Protonix Inj) 40 mg IVP DAILY [facility] Last Admin: 07/16/17 11:00 Dose: 40 mg Rosuvastatin Calcium (Crestor) 10 mg PO HS [facility] Last Admin: 07/15/17 21:28 Dose: 10 mg - Labs Labs: 07/16/17 06:25 07/16/17 06:25 PT 15.6 SECONDS (9.7-12.2) H 07/14/17 06:33 INR 1.4 07/14/17 06:33 APTT 51 SECONDS (21-34) H D 07/14/17 01:57 - Constitutional Appears: Well, No Acute Distress - Head Exam Head Exam: ATRAUMATIC, NORMAL INSPECTION - Eye Exam Eye Exam: EOMI, Normal appearance - ENT Exam ENT Exam: Mucous Membranes Moist - Neck Exam Neck Exam: Full ROM - Respiratory Exam Respiratory Exam: Clear to Ausculation Bilateral, NORMAL BREATHING PATTERN. absent: Rales, Rhonchi, Wheezes - Cardiovascular Exam Cardiovascular Exam: Tachycardia, Irregular Rhythm, +S1, +S2 - GI/Abdominal Exam GI & Abdominal Exam: Soft, Normal Bowel Sounds. absent: Guarding, Rigid, Tenderness - Extremities Exam Extremities Exam: absent: Calf Tenderness Additional comments: +Venous stasis changes - Back Exam Back Exam: NORMAL INSPECTION - Neurological Exam Neurological Exam: Alert, Awake. absent: Oriented x3 (Orientated to person and place) Additional comments: continues to have left sided visual field deficits in both eyes - Psychiatric Exam Psychiatric exam: Normal Affect, Normal Mood - Skin Skin Exam: Dry, Normal Color, Warm Assessment and Plan - Assessment and Plan (Free Text) Assessment: 1) Hemianopia Dr. Pennington neurology consult, help appreciated. Dr. Gomez cardiology consult, help appreciated. CT Head - No acute infarct Repeat Head CT on 07/12 demonstrated no hemorrhagic conversion Third repeat Head CT on 07/13 (ordered due to new onset headache in light of current sequelae) demonstrates confirmation of ischemic DISPLAYER territory infarct. MRI brain w.o. contrast revealed trace petechial hemorrhages questioned at the medial anterior right occipital lobe with signal changes seen only in the gradient echo axial series. All anticoagulation has been stopped as a result of the hemorrhages. Repeat Head CT on 07/15 shows: Subtle high attenuation in the anterior superior occipital lobe could represent petechial hemorrhage. Per Dr. Pennington--no anticoagulation at this point including no aspirin for at least 4 weeks; at that time can start low dose aspirin and low dose Eliquis 2) History of CVA (cerebrovascular accident) Patient had two CVA, both with TPA admin No TPA for this current CVA since it met criteria for contraindication Was previously on warfarin but stopped due to bleeding s/p TURB Dr. Pennington recommended Eliquis but after speaking with Dr. Gomez, patient is amenable to Coumadin with routine follow ups Crestor 10 PO HS Unable to anticoagulate due to the hemorrhages seen on MRI on 07/13/[address] Gomez, watchman device is not indicated as it requires anticoagulation. Given the hemorrhage on MRI, he defers to Dr. Pennington to determine if the patient can at least use aspirin. He prefers Aspirin [address] Pennington--no anticoagulation at this point including no aspirin for at least 4 weeks; at that time can start low dose aspirin and low dose Eliquis 3) Hypertension Lasix 20 PO HS HCTZ 25 PO QD Metoprolol 100 PO QD Cozaar 50mg BID 4) Atrial Fibrillation Rate controlled Metoprolol [id number] PO QD Unable to anticoagulate due to the hemorrhages Per Dr. Gomez, watchman device is not indicated as it requires anticoagulation. Given the hemorrhage on MRI, he defers to Dr. Pennington to determine if the patient can at least use aspirin. He prefers Aspirin 325 mg daily. Repeat Head CT on 07/15 shows: Subtle high attenuation in the anterior superior occipital lobe could represent petechial hemorrhage. Per Dr. Pennington--no anticoagulation at this point including no aspirin for at least 4 weeks; at that time can start low dose aspirin and low dose Eliquis 5) DVT Unable to anticoagulate at this time due to hemorrhage seen on MRI and follow up head CT S/P IVC filter with Dr Fan 6) History of epistaxis ENT Dr. Valdez consulted, help appreciated Per Dr. Valdez, outpatient follow up since patient is not actively bleeding 7) Leg pain Likely venous stasis vs infectious Podiatry ([facility]) Continue Lac-Hydrin emollient and topical steroid Improvements noted 8) Prophylactic measure Heart Healthy Diet mod consistent carbs Protonix 40 mg daily SCDs contraindicated due to leg swelling Medication anticoagulation c/i due to petechial hemorrhage Colace DISPO: Patient is medically optimized for discharge to acute rehab, patient however concerned about having visitors and wants to possibly go to [place] [facility]. Discussed both options with patient and his brother. Currently awaiting patient decision.
[2017-07-17] MEDS ORDERED: Metoprolol Succinate 100 mg XL Tab PO SCH (10:00)
== END 2017-07-16 22:30 | disposition home or self-care (01) | DRG 41 ==
LOC: C.ER 20:57 → C.6T 23:28
PROVIDERS: ADMIT Hospitalist; ATTEND Hospitalist
PROC: 06H03DZ Insertion of Intraluminal Device into Inferior Vena Cava, Percutaneous Approach (ICD-10-PCS; principal; 2017-07-13 16:15)
DX: I69.312 Visuospatial deficit and spatial neglect following cerebral infarction (principal); I82.431 Acute embolism and thrombosis of right popliteal vein; H53.462 Homonymous bilateral field defects, left side; I48.2 Chronic atrial fibrillation; I11.0 Hypertensive heart disease with heart failure; I50.9 Heart failure, unspecified; I69.351 Hemiplegia and hemiparesis following cerebral infarction affecting right dominant side; Z87.891 Personal history of nicotine dependence; Z85.51 Personal history of malignant neoplasm of bladder; K21.9 Gastro-esophageal reflux disease without esophagitis; I25.10 Atherosclerotic heart disease of native coronary artery without angina pectoris; R04.0 Epistaxis; E11.9 Type 2 diabetes mellitus without complications